=== PATIENT | female | born 1955 | race Caucasian/White ===

== ENCOUNTER 2016-05-09 08:10 | Observation (INO) ==
[2016-05-09] MEDS ORDERED: Ipratropium/Albuterol Neb 3 ML IH ONE (08:14)
[2016-05-09] MEDS ORDERED: methylPREDNISolone 125 MG/2 ML VIAL IVP ONE (08:14)
[2016-05-09 08:38] LABS: Basophils # 0.1 K/mcL (0.0-0.2); Basophils % 0.8 %; Eosinophils # 0.1 K/mcL (0.0-0.6); Eosinophils % 2.3 %; Hematocrit 43.2 % (35.3-44.9); Hemoglobin 15.2 g/dL (11.5-15.4); Lymphocytes # 1.1 K/mcL (0.6-4.6); Lymphocytes % 18.7 %; Mean Corpuscular HGB Conc 35.2 g/dL (31.6-35.5); Mean Corpuscular Hemoglobin 29.8 pg (28.0-33.3); Mean Corpuscular Volume 84.7 fL (83.0-100.0); Mean Platelet Volume 10.5 fL (9.4-12.4); Monocytes # 0.4 K/mcL (0.0-1.3); Monocytes % 7.3 %; Neutrophils # 4.2 K/mcL (1.6-8.9); Platelet Count 185 K/mcL (140-400); Red Cell Distribution Width 12.7 % (11.5-14.5); Segmented Neutrophils % 69.9 %
[2016-05-09 08:43] LABS: INR 1.1; Prothrombin Time 12.1 Seconds (9.4-12.1)
[2016-05-09 08:46] LABS: Activated Partial Thrombo Time 29.7 Seconds (26.0-36.0)
[2016-05-09 08:52] LABS: BUN/Creatinine Ratio 20 (6-26); Blood Urea Nitrogen 17 mg/dL (7-20); Calcium 9.4 mg/dL (8.6-10.8); Carbon Dioxide 20 mEq/L (19-29); Chloride 105 mEq/L (98-109); Glucose 164 mg/dL (70-99); Osmolality,Calculated 289 (280-300); Potassium 4.4 mEq/L (3.5-4.5); Sodium 137 mEq/L (136-145); eGFR For African Americans > 60 (> 60); eGFR For Non-African Americans > 60 (> 60)
--- NOTE | 2016-05-09 09:50 | Emergency Department Note ---
Disposition Clinical Impression: Dyspnea Qualifiers: Dyspnea type: shortness of breath Qualified Code(s): R06.02 - Shortness of breath Disposition: Admitted As Inpatient Condition: Fair Forms: ED Satisfaction Letter SOB HPI - General Chief Complaint: ED Shortness of Breath/Dyspnea Stated Complaint: SOB Time Seen by Provider: 05/09/16 08:11 Source: patient Mode of arrival: private vehicle Limitations: no limitations Nursing Notes Reviewed: Yes Vital Signs Reviewed: Yes - History of Present Illness Pt Subjective Complaint: shortness of breath Onset (ago): hour(s) Context: other (awakened by feeling of not being able to breathe) Severity: moderate (now a little better) Consistency/Duration: constant Improves with: oxygen Worsens with: nothing Associated symptoms: Reports: cough (occassional, since having bronchitis in March). Denies: chest pain, pain with inspiration, fever, wheezing, sputum production, orthopnea, lower extremity pain, polyuria, polydipsia, parasthesias , palpitations, hemoptysis, diaphoresis, nausea/vomiting, syncope, abdominal pain, rash, sense of impending doom Treatment prior to arrival: none Cough present: Yes Cough Description: Voluntary, Loose Cough Frequency: Intermittent Sputum production: No Sputum Amount: None - Related Data Home oxygen amount: none Previous Rx's Medication Instructions Recorded Doxycycline 100 mg PO BID #20 capsule 08/17/15 Hydrocodone/Acetaminophen [Bowen 1 tab PO Q6H PRN #12 tab 08/17/15 5-325 Tablet] Sulfamethoxazole/Trimeth DS 1 each PO BID #20 tablet 08/17/15 [Bactrim DS] Clindamycin [Cleocin] 450 mg PO QID #20 capsule 09/10/15 Azithromycin [Azithromycin 6-Tab 250 mg PO PER PKG DI #6 tab 02/21/16 Pack] Cetirizine HCl [Zyrtec] 10 mg PO DAILY #7 capsule 02/21/16 GuaiFENesin/Codeine [Robitussin 10 ml PO Q6HR #120 liquid 02/21/16 w/Codeine] Naproxen [Naprosyn] 500 mg PO BID PRN #12 tablet 02/26/16 Oxycodone HCl/Acetaminophen 1 each PO Q6HR PRN #12 tablet 02/26/16 [Percocet 5-325 mg Tablet] Albuterol Sulfate [Albuterol 4 puff IH Q4HR PRN #1 hfa.aer.ad 03/19/16 Inhaler] Azithromycin [Azithromycin 6-Tab 250 mg PO PER PKG DI #6 tab 03/19/16 Pack] PredniSONE 40 mg PO DAILY #4 tablet 03/19/16 Allergies Allergy/AdvReac Type Severity Reaction Status Date / Time nabumetone [From Relafen] AdvReac Dizziness Verified 02/26/16 18:03 All systems ED: reviewed and negative except as stated. Constitutional: Denies: fever, chills, weakness, weight change, night sweats ENT ED: Denies: throat pain, congestion, dysphagia Cardiovascular: Denies: chest pain, palpitations, orthopnea, edema, syncope Respiratory: Reports: as per HPI, cough, dyspnea. Denies: wheezes, hemoptysis, stridor, sputum production Gastrointestinal: Denies: abdominal pain, nausea, vomiting, diarrhea Neurological: Denies: weakness, numbness, paresthesias Endocrine: Denies: fatigue Hematological/Lymphatic: Denies: easy bleeding, easy bruising Past Medical History - Past Medical History Attestation: Yes The following information was validated with the patient. Source: patient Medical history: Reports: diabetes Surgical history: Reports: orthopedic, other Psychiatric history: Reports: no psych history RAW SAMPLER history: Reports: no RAW SAMPLER history - Social History Smoking Status: Current every day smoker Smokeless Tobacco Status: No Alcohol use: Reports: none Drug use: Reports: none Physical Exam - General Limitations: no limitations General appearance: alert, in no apparent distress - Head Head exam: atraumatic, normocephalic, normal inspection - Eye Eye exam: Present: normal appearance, PERRL. Absent: scleral icterus, conjunctival injection, periorbital swelling - ENT ENT exam: normal exam, normal oropharynx, mucous membranes moist - Neck Neck exam: Present: normal inspection, full ROM, trachea midline. Absent: meningismus - Expanded Neck Exam Neck exam focused ED: Absent: anterior neck swelling, carotid bruit - Chest Chest inspection: Present: normal inspection, symmetric chest wall rise. Absent : tenderness - Respiratory Respiratory exam: Present: normal lung sounds bilaterally. Absent: respiratory distress, wheezes, stridor, accessory muscle use, prolonged expiratory phase - Cardiovascular Cardiovascular exam: Present: regular rate, normal rhythm, normal heart sounds - Abdominal Exam Abdominal exam: Present: soft, Non-Tender. Absent: distention, guarding, rebound, rigidity, mass - Extremities Exam Extremities exam: Absent: tenderness, pedal edema, calf tenderness - Back Exam Back exam: Present: normal inspection. Absent: tenderness - Neurological Exam Neurological exam: Present: alert, oriented X3, CN II-XII intact - Psychiatric Psychiatric exam: Present: normal affect, normal mood - Skin Skin exam: Present: warm, dry, intact, normal color Course Course Narrative: Patient presents for evaluation of dyspnea. It woke her up. She is feeling better with 3 L of oxygen via nasal cannula. She has had an occasional cough since March when she had bronchitis. She denies chest pain, palpitations, lightheadedness, dizziness or syncope. She denies known personal history of coronary artery disease, however, her father had significant CAD with an [place] in his 40s. Patient denies any personal or family history of DVT or PE. She has had no recent surgeries or procedures, no recent prolonged sedentary periods or long trips and no recent air travel. She smokes 4-5 cigarettes per day and has done so for the past four years. She states that she is trying to quit. Her significant other smokes more than this and has a history of COPD. The patient' s chest x-ray is normal, labs are essentially normal except for an elevated glucose. She is a diabetic, obese smoker with dyspnea and a setting of normal, breath sounds normal X-ray, negative d-dimer, no risk factors for PE, and no signs or symptoms consistent with an infectious process. The concern is for anginal equivalent. Case has been discussed with Dr. Aguirre. He has had face- to-face time with the patient and agrees with the assessment and plan. He recommends admission for further evaluation. The hospitalist has been paged. - Reevaluation(s) Reevaluation #1: Room air sat 92-93%. Feels worse without O2. Time: 10:45 Shortness of Breath/Dyspnea - Medical Records Medical records reviewed: Yes I reviewed the patient's medical records. - Lab Data Lab results reviewed: Yes I reviewed the patient's lab results. Lab results narrative: Laboratory Last Values WBC 6.0 K/mcL (4.3-11.1) 05/09/16 08:32 RBC 5.10 M/mcL (3.82-4.97) H 05/09/16 08:32 Hgb 15.2 g/dL (11.5-15.4) 05/09/16 08:32 Hct 43.2 % (35.3-44.9) 05/09/16 08:32 MCV 84.7 fL (83.0-100.0) 05/09/16 08:32 MCH 29.8 pg (28.0-33.3) 05/09/16 08:32 MCHC 35.2 g/dL (31.6-35.5) 05/09/16 08:32 RDW 12.7 % (11.5-14.5) 05/09/16 08:32 Plt Count 185 K/mcL (140-400) 05/09/16 08:32 MPV 10.5 fL (9.4-12.4) 05/09/16 08:32 Immature Gran % 1.0 % (0-4) 05/09/16 08:32 Seg Neutrophils % 69.9 % 05/09/16 08:32 Lymphocytes % 18.7 % 05/09/16 08:32 Monocytes % 7.3 % 05/09/16 08:32 Eosinophils % 2.3 % 05/09/16 08:32 Basophils % 0.8 % 05/09/16 08:32 Neutrophils # 4.2 K/mcL (1.6-8.9) 05/09/16 08:32 Lymphocytes # 1.1 K/mcL (0.6-4.6) 05/09/16 08:32 Monocytes # 0.4 K/mcL (0.0-1.3) 05/09/16 08:32 Eosinophils # 0.1 K/mcL (0.0-0.6) 05/09/16 08:32 Basophils # 0.1 K/mcL (0.0-0.2) 05/09/16 08:32 PT 12.1 Seconds (9.4-12.1) 05/09/16 08:32 INR 1.1 05/09/16 08:32 APTT 29.7 Seconds (26.0-36.0) 05/09/16 08:32 D-Dimer 273 ng/mLFEU (0-500) 05/09/16 08:32 Sodium 137 mEq/L (136-145) 05/09/16 08:32 Potassium 4.4 mEq/L (3.5-4.5) 05/09/16 08:32 Chloride 105 mEq/L (98-109) 05/09/16 08:32 Carbon Dioxide 20 mEq/L (19-29) 05/09/16 08:32 BUN 17 mg/dL (7-20) 05/09/16 08:32 Creatinine 0.83 mg/dL (0.57-1.11) 05/09/16 08:32 Est GFR ( Amer) > 60 (> 60) 05/09/16 08:32 Est GFR (Non-Af Amer) > 60 (> 60) 05/09/16 08:32 BUN/Creatinine Ratio 20 (6-26) 05/09/16 08:32 Glucose 164 mg/dL (70-99) H 05/09/16 08:32 Calculated Osmolality 289 (280-300) 05/09/16 08:32 Calcium 9.4 mg/dL (8.6-10.8) 05/09/16 08:32 Troponin I 0.01 ng/mL (0-0.03) 05/09/16 08:32 B-Natriuretic Peptide 20 pg/mL (0-100) 05/09/16 08:32 - Radiology Data Radiology results reviewed: Yes I reviewed the patient's radiology results. Chest X-Ray 05/09/16 08:14 IMPRESSION: Stable chest with no acute cardiopulmonary process. D/ / Dimitris Patton MD / Dimitris Patton MD Interpreting Provider: Dimitris Patton MD - EKG Data EKG attestation: Yes I reviewed and interpreted this EKG. EKG shows normal: Reports: sinus rhythm Rate: Reports: normal Rhythm: Reports: arrhythmia [place]/QRS: Reports: normal When compared to previous EKG there are: no significant changes Interpretation: Reports: no acute changes, unchanged when compared to prior tracing (date)
--- NOTE | 2016-05-09 10:31 | Emergency Department Note ---
START Narrative - START START: I examined this patient and my medical decision-making was reviewed with the PARTS SALES MANAGER/PA/Advanced Practice Nurse/Resident Physician. I agree with the documented findings, disposition and treatment plan as described except to the extent set forth below. ED attending note: Patient seen with physician graduate research assistant Charla Haney. Please see a copy of his note for details of the H&P, evaluation, management and disposition of this patient. We independently had gaty-ic-[id number] contact with the patient Briefly: 60-year-old female smoker comes in with dyspnea. Chest x-rays negative troponins negative chemistry and CBC are negative. EKG shows no acute ischemic changes. She will get a d-dimer. Admission anticipated. Provided 35 minutes of critical care services for this patient. Patient stable
[2016-05-09] MEDS ORDERED: Aspirin 81 MG TAB.CHEW PO ONE (10:49)
[2016-05-09] MEDS ORDERED: Naloxone 0.4 MG/ML INJ IVP PRN (12:52)
[2016-05-09] MEDS ORDERED: Albuterol 2.5 MG/3 ML NEBULIZER IH PRN (12:55)
--- NOTE | 2016-05-09 16:04 | Internal Med History&Physical ---
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 CXR shows no pneumonia and no other acute pathology. no worsening dyspnea on exertion,no leg swelling and negative BNP and no h/o orthopnea and denies any similar prior history. will observe today with 2 l NC, will need 6 MWT for need of dc prior lenny dc. no wheezing on exam, will keep on prn alb nebs. will give referral to pulmonary as OP. Qualifiers: Dyspnea type: shortness of breath Qualified Code(s): R06.02 - Shortness of breath (3) Tobacco abuse Current visit: Yes Status: Acute counselled for quitting. will add nicotine patch. Internal Medicine - H&P: HPI Chief complaint: sob Admitted From: Home Plans for Post Hospital Care: Home History of present illness: Ms. Cuadra is a 60 year old female presents for evaluation of dyspnea. It woke her up. she was placed on 3 L of oxygen via nasal cannula. She has had an occasional cough since March when she had bronchitis and reports that she was treated with antibiotics and steroids. She denies chest pain, palpitations, lightheadedness, dizziness or syncope. She denies known personal history of coronary artery disease, however, her father had significant CAD with an [place] in his 40s. Patient denies any personal or family history of DVT or PE. She has had no recent surgeries or procedures, no recent prolonged sedentary periods or long trips and no recent air travel. She smokes 4-5 cigarettes per day and has done so for the past four years. She states that she is trying to quit. Her significant other smokes more than this and has a history of COPD. The patient' s chest x-ray is normal, labs are essentially normal except for an elevated glucose. She is a diabetic, obese smoker with dyspnea and a setting of normal, breath sounds normal X-ray, negative d-dimer, no risk factors for PE, and no signs or symptoms consistent with an infectious process. she was admitted for observation as she was desating to low 90s when off oxygen. Past Med Surg Social Fam HX - Past Medical History Medical history: diabetes Psychiatric history: no psych history - Past Surgical History Surgical History: orthopedic, other - Social History Smoking Status: Current every day smoker Smokeless Tobacco Status: No Alcohol use: none Drug use: none - Family History Father Hx Family Cardiac Disorders: Yes (HTN) Internal Medicine - H&P: Meds Insulin Glargine,Hum.rec.anlog [Lantus Solostar] 20 unit SQ QAM 05/09/16 [ History] Meloxicam 7.5 mg PO DAILY 05/09/16 [History] Metformin [Glucophage] 1,000 mg PO BID 05/09/16 [History] Allergies nabumetone [From Relafen] Adverse Reaction (Verified 02/26/16 18:03) Dizziness All Systems PM: A 10-system review of systems was performed and is negative for pertinent findings except as documented above in the HPI. - Constitutional Constitutional: as per HPI - EENT Eyes: no change in vision, no discharge, no pain, no photophobia Ears: no ear discharge, no ear pain, no tinnitus Nose, mouth and throat: no dysphagia, no nasal discharge, no neck pain, no sore throat - Cardiovascular Cardiovascular ROS IM: dyspnea, no chest pain, no diaphoresis, no lightheadedness, no palpitations, no syncope - Respiratory Respiratory: cough, dyspnea - Gastrointestinal Gastrointestinal: no abdominal pain, no diarrhea, no hematemesis, no hematochezia, no melena, no nausea, no vomiting - Genitourinary Genitourinary: no change in urinary stream, no dysuria, no flank pain, no hematuria - Constitutional Vitals: Temp Pulse Resp BP Pulse Ox 97.9 F 88 17 150/85 94 L 05/09/16 13:09 05/09/16 13:09 05/09/16 13:09 05/09/16 13:05/09/16 13:09 General appearance: Present: A&O X 3, no acute distress Exam: Neck supple. Chest bilateral clear, no added sounds. CVS S1-S2, no murmurs rubs or gallops. Abdomen soft, obese, nontender, bowel sounds are present. Extremities no edema. Neuro alert and awake, no focal neurological deficits. Internal Med - H&P Results - Labs CBC & Chem 7: 05/09/16 08:32 05/09/16 08:32
[2016-05-09] MEDS: *HR* Heparin 5,000 UNIT/ML VIAL SQ SCH (17:24)
[2016-05-09] MEDS ORDERED: *HR* OxyCODONE Immed Rel 5 MG TABLET PO PRN (19:51)
[2016-05-09] MEDS ORDERED: Acetaminophen 325 MG TABLET PO PRN (19:51)
[2016-05-09] MEDS ORDERED: Ondansetron 4 MG/2 ML VIAL IVP PRN (19:51)
[2016-05-09] MEDS ORDERED: 0.9 % Sodium Chloride 1,000 ML IVC SCH (20:00)
[2016-05-09] MEDS: Famotidine 20 MG TABLET PO SCH (20:07)
[2016-05-09] MEDS ORDERED: *HR* Dextrose 50 % in Water (Syg) 50 ML SYRINGE IVP PRN (21:19)
[2016-05-09] MEDS ORDERED: D5% in Water 1,000 ML IV PRN (21:19)
[2016-05-09] MEDS ORDERED: Dextrose Gel 15 GM PO PRN ×2 (21:19)
[2016-05-09] MEDS ORDERED: Insulin LISPRO 300 UNITS/3 ML VIAL SQ SCH (21:30)
[2016-05-10 04:28] LABS: Basophils % 0.2 %; Hematocrit 40.8 % (35.3-44.9); Hemoglobin 14.5 g/dL (11.5-15.4); Immature Granulocytes % 1.8 % (0-4); Lymphocytes % 10.4 %; Mean Corpuscular HGB Conc 35.5 g/dL (31.6-35.5); Mean Corpuscular Hemoglobin 29.8 pg (28.0-33.3); Mean Platelet Volume 11.2 fL (9.4-12.4); Monocytes # 0.4 K/mcL (0.0-1.3); Neutrophils # 8.2 K/mcL (1.6-8.9); Platelet Count 201 K/mcL (140-400); Red Blood Count 4.86 M/mcL (3.82-4.97); Red Cell Distribution Width 12.5 % (11.5-14.5); Segmented Neutrophils % 83.6 %
[2016-05-10 04:48] LABS: BUN/Creatinine Ratio 22 (6-26); Blood Urea Nitrogen 20 mg/dL (7-20); Calcium 9.1 mg/dL (8.6-10.8); Carbon Dioxide 17 mEq/L (19-29); Chloride 104 mEq/L (98-109); Cholesterol 215 mg/dL (< 200); Glucose 275 mg/dL (70-99); HDL Cholesterol 27 mg/dL (40-59); LDL Cholesterol,Calculated 123 mg/dL (0-99); Osmolality,Calculated 292 (280-300); Potassium 4.2 mEq/L (3.5-4.5); Sodium 135 mEq/L (136-145); Triglycerides 324 mg/dL (< 150); eGFR For African Americans > 60 (> 60); eGFR For Non-African Americans > 60 (> 60)
[2016-05-10] MEDS: *HR* Heparin 5,000 UNIT/ML VIAL SQ SCH (06:23)
[2016-05-10] MEDS ORDERED: Insulin LISPRO 300 UNITS/3 ML VIAL SQ SCH (07:30)
[2016-05-10 07:34] VITALS: BP 120/71
[2016-05-10] MEDS: Famotidine 20 MG TABLET PO SCH (08:08)
[2016-05-10] MEDS ORDERED: Insulin DETEMIR 100 UNIT/ML X5UNITS SQ SCH (09:00)
--- NOTE | 2016-05-10 09:49 | Discharge Summary ---
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: with terminal press operator use Qualified Code(s): E11.9 - Type 2 diabetes mellitus without complications ; Z79.4 - MCFP (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 (2) Dyspnea Priority: Primary Status: Acute Qualifiers: Dyspnea type: shortness of breath Qualified Code(s): R06.02 - Shortness of breath (3) Tobacco abuse Priority: Secondary Status: Acute - Discharge Medications Prescriptions: Atorvastatin [Lipitor] 10 mg PO HS #30 tablet Home Medications: Insulin Glargine,Hum.rec.anlog [Lantus Solostar] 20 unit SQ QAM 05/09/16 [ History] Meloxicam 7.5 mg PO DAILY 05/09/16 [History] Metformin [Glucophage] 1,000 mg PO BID 05/09/16 [History] Atorvastatin [Lipitor] 10 mg PO HS #30 tablet 05/10/16 [Rx] Allergies/Adverse Reactions: Allergies nabumetone [From Relafen] Adverse Reaction (Verified 02/26/16 18:03) Dizziness Date of admission: 05/09/16 11:46 Primary care physician: Ramone Cee Discharging clinician: Brendan Ruiz Anticipated date of discharge: 05/10/16 - Patient Status Disposition: Home, Self-Care Condition: Fair Functional capacity at discharge: independent ambulation Overall status at discharge: patient is back to baseline - Discharge Instructions Instructions: Atorvastatin (By mouth) Follow Up With: Ramone Cee DO [Primary Care Provider] - Forms: ED Satisfaction Letter - Diet and Activity Activity: resume usual activities as tolerated Diet: advance to your usual diet Interval History: Ms. Cuadra is a 60 year old female presents for evaluation of dyspnea. It woke her up. she was placed on 3 L of oxygen via nasal cannula. She has had an occasional cough since March when she had bronchitis and reports that she was treated with antibiotics and steroids. She denies chest pain, palpitations, lightheadedness, dizziness or syncope. She denies known personal history of coronary artery disease, however, her father had significant CAD with an [place] in his 40s. Patient denies any personal or family history of DVT or PE. She has had no recent surgeries or procedures, no recent prolonged sedentary periods or long trips and no recent air travel. She smokes 4-5 cigarettes per day and has done so for the past four years. She states that she is trying to quit. Her significant other smokes more than this and has a history of COPD. The patient' s chest x-ray is normal, labs are essentially normal except for an elevated glucose. She is a diabetic, obese smoker with dyspnea and a setting of normal, breath sounds normal X-ray, negative d-dimer, no risk factors for PE, and no signs or symptoms consistent with an infectious process. she was admitted for observation as she was desating to low 90s when off oxygen. Hospital course: she remained stable overnight, no further de saturation. CXR showed no infiltrates, routine blood work is unremarkable including cbc, chem. she remained stable on RA With no supplemental O2 and her sats were mainatined > 95%. seh said that she is not able to walk due to her leg, hence 6MWT was not done. she was advised to quit smoking as she said she started 5 yrs ago. she does not need supplemental o2 at this time and she is being dc home in stable condition. will add low dose statin for high cholesterol level. no change in her home meds will follow with PCP as OP. Time spent discussing smoking cessation with patient: more than 10 minutes - Time Spent with Patient Total time spent providing and/or coordinating discharge services: Greater than 30 minutes - Constitutional Vitals: Temp Pulse Resp BP Pulse Ox 97.3 F L 68 17 120/71 96 05/10/16 07:33 05/10/16 07:33 05/10/16 07:33 05/10/16 07:33 05/10/16 07:33 General appearance: Present: A&O X 3, no acute distress Exam: Neck supple. Chest bilateral clear, no added sounds. CVS S1-S2, no murmurs rubs or gallops. Abdomen soft, obese, nontender, bowel sounds are present. Extremities no edema. Neuro alert and awake, no focal neurological deficits.
--- NOTE | 2016-05-10 19:54 | Electrocardiograph Report ---
[facility] Test Date: 2016-05-09 Pat Name: [place] Cuadra Department: 105 Room: 3B36 Gender: F Camera Maker: : [id number] Requested By: Charla Haney Order Number: [id number] Reading MD: Alton Schneider DO Measurements Intervals [place] Rate: 80 P: 56 AL: 159 QRS: 23 QRSD: 101 T: 37 QT: 394 QTc: 429 Interpretive Statements SINUS RHYTHM WITH SINUS ARRHYTHMIA Electronically Signed On 05-10-16 19:52:47 EST by Alton Schneider DO
== END 2016-05-10 10:53 | disposition home or self-care (01) ==
LOC: 3BNU 08:10 → EMEROO 08:10 → SUATTDRO 11:46 → 3BNU 12:59
PROVIDERS: ADMIT Nurse Practitioner Family; ATTEND Internal Medicine Endocrinology, Diabetes & Metabolism

== ENCOUNTER 2017-01-26 11:39 | Observation (INO) ==
[2017-01-26] MEDS ORDERED: Ipratropium/Albuterol Neb 3 ML IH ONE ×2 (11:58→13:40)
--- NOTE | 2017-01-26 12:01 | Emergency Department Note ---
Disposition Clinical Impression: COPD exacerbation Disposition: Admitted As Inpatient Condition: Fair Referrals: Ramone Cee DO [Primary Care Provider] - Forms: ED Satisfaction Letter Time of Disposition: 14:42 SOB HPI - General Chief Complaint: ED Shortness of Breath/Dyspnea Stated Complaint: JOSE RAFAEL, Poss pneumonia Time Seen by Provider: 01/26/17 11:52 Source: patient, EMS Limitations: no limitations Nursing Notes Reviewed: Yes Vital Signs Reviewed: Yes - History of Present Illness Pt Subjective Complaint: shortness of breath, cough Onset (ago): day(s) Context: recent illness Severity: severe Consistency/Duration: intermittent Improves with: bronchodilators Worsens with: exertion, coughing Associated symptoms: Reports: chest pain, fever, cough, sputum production Treatment prior to arrival: bronchodilator Cough Description: Productive Cough Frequency: Intermittent Sputum production: Yes Sputum Color: Green - Related Data Home oxygen amount: none Home Medications Medication Instructions Recorded Confirmed Insulin Glargine,Hum.rec.anlog 20 unit SQ QAM 05/09/16 01/26/17 [Lantus Solostar] metFORMIN [Glucophage] 500 mg PO BID 05/09/16 01/26/17 Previous Rx's Medication Instructions Recorded Atorvastatin [Lipitor] 10 mg PO HS #30 tablet 05/10/16 Allergies Allergy/AdvReac Type Severity Reaction Status Date / Time nabumetone [From Relafen] AdvReac Dizziness Verified 01/26/17 11:45 All systems ED: reviewed and negative except as stated. Constitutional: Reports: fever Eyes: Reports: as per HPI ENT ED: Reports: as per HPI Cardiovascular: Reports: chest pain Respiratory: Reports: cough, dyspnea, sputum production Gastrointestinal: Reports: as per HPI Genitourinary: Reports: as per HPI Musculoskeletal: Reports: as per HPI Integumentary: Reports: as per HPI Neurological: Reports: as per HPI Psychiatric: Reports: as per HPI Endocrine: Reports: as per HPI Hematological/Lymphatic: Reports: as per HPI Allergic/Immunologic: Reports: as per HPI Past Medical History - Past Medical History Source: patient Medical history: Reports: diabetes Surgical history: Reports: orthopedic, other Psychiatric history: Reports: no psych history SOLIDWORKS DRAFTER history: Reports: no SOLIDWORKS DRAFTER history - Social History Smoking Status: Current every day smoker Smokeless Tobacco Status: No Alcohol use: Reports: none Drug use: Reports: none Physical Exam - General Limitations: no limitations General appearance: alert, in no apparent distress - Head Head exam: atraumatic - Eye Eye exam: Present: normal appearance - ENT ENT exam: normal exam - Neck Neck exam: Present: normal inspection, full ROM - Chest Chest inspection: Present: normal inspection, symmetric chest wall rise - Respiratory Respiratory exam: Present: normal lung sounds bilaterally, other (Tachypnea) - Cardiovascular Cardiovascular exam: Present: regular rate, normal rhythm, normal heart sounds - Rectal Exam Rectal exam: Present: deferred - Extremities Exam Extremities exam: Present: normal inspection - Neurological Exam Neurological exam: Present: alert, oriented X3, CN II-XII intact - Psychiatric Psychiatric exam: Present: normal affect, normal mood - Skin Skin exam: Present: warm, dry, intact Course Course Narrative: Patient presents with cough productive of green phlegm, fevers, dyspnea. Recent ill exposure as her significant other has pneumonia. She is an active smoker. EKG without acute changes. - Reevaluation(s) Reevaluation #1: Symptoms persist despite neb therapy. Patient requests admission. smoking cessation counseling provided Vital Signs Temperature 99.4 F 01/26/17 11:42 Pulse Rate 94 01/26/17 11:42 Respiratory Rate 22 01/26/17 11:42 Blood Pressure 123/79 01/26/17 11:42 O2 Sat by Pulse Oximetry 94 01/26/17 11:42 Temperature 99.4 F 01/26/17 11:42 Pulse Rate 100 01/26/17 13:32 Respiratory Rate 22 01/26/17 14:36 Blood Pressure 134/66 01/26/17 14:36 O2 Sat by Pulse Oximetry 95 01/26/17 13:55 Oxygen Delivery Oxygen Delivery Nasal Cannula Shortness of Breath/Dyspnea - Lab Data Lab results reviewed: Yes I reviewed the patient's lab results. Result diagrams: 01/26/17 13:56 01/26/17 13:56 Lab Results 01/26/17 01/26/17 01/26/17 Range/Units 13:56 13:56 13:56 WBC 8.1 (4.3-11.1) K/mcL RBC 4.97 (3.82-4.97) M/mcL Hgb 14.7 (11.5-15.4) g/dL Hct 42.9 (35.3-44.9) % MCV 86.3 (83.0-100.0) fL MCH 29.6 (28.0-33.3) pg MCHC 34.3 (31.6-35.5) g/dL RDW 13.2 (11.5-14.5) % Plt Count 194 (140-400) K/mcL MPV 10.8 (9.4-12.4) fL Immature Gran % 1.1 (0-4) % Seg Neutrophils % 78.4 % Lymphocytes % 12.0 % Monocytes % 7.4 % Eosinophils % 0.6 % Basophils % 0.5 % Neutrophils # 6.3 (1.6-8.9) K/mcL Lymphocytes # 1.0 (0.6-4.6) K/mcL Monocytes # 0.6 (0.0-1.3) K/mcL Eosinophils # 0.1 (0.0-0.6) K/mcL Basophils # 0.0 (0.0-0.2) K/mcL Sodium 136 (136-145) mEq/L Potassium 3.9 (3.5-4.5) mEq/L Chloride 99 (98-109) mEq/L Carbon Dioxide 28 (19-29) mEq/L BUN 12 (7-20) mg/dL Creatinine 0.83 (0.57-1.11) mg/dL Est GFR ( Amer) > 60 (> 60) Est GFR (Non-Af Amer) > 60 (> 60) BUN/Creatinine Ratio 14 (6-26) Glucose 146 H (70-99) mg/dL Calculated Osmolality 284 (280-300) Calcium 9.3 (8.6-10.8) mg/dL Total Bilirubin 0.5 (0.2-1.2) mg/dL AST 16 (5-34) Units/L ALT 13 (0-55) Units/L Alkaline Phosphatase 100 (38-126) Units/L Troponin I 0.00 (0-0.03) ng/mL B-Natriuretic Peptide (0-100) pg/mL Serum Total Protein 8.2 (6.0-8.3) g/dL Albumin 3.5 (3.5-5.0) g/dL Globulin 4.7 H (2.4-3.5) g/dL Albumin/Globulin Ratio 0.7 L (1.1-2.2) 01/26/17 Range/Units 13:56 WBC (4.3-11.1) K/mcL RBC (3.82-4.97) M/mcL Hgb (11.5-15.4) g/dL Hct (35.3-44.9) % MCV (83.0-100.0) fL MCH (28.0-33.3) pg MCHC (31.6-35.5) g/dL RDW (11.5-14.5) % Plt Count (140-400) K/mcL MPV (9.4-12.4) fL Immature Gran % (0-4) % Seg Neutrophils % % Lymphocytes % % Monocytes % % Eosinophils % % Basophils % % Neutrophils # (1.6-8.9) K/mcL Lymphocytes # (0.6-4.6) K/mcL Monocytes # (0.0-1.3) K/mcL Eosinophils # (0.0-0.6) K/mcL Basophils # (0.0-0.2) K/mcL Sodium (136-145) mEq/L Potassium (3.5-4.5) mEq/L Chloride (98-109) mEq/L Carbon Dioxide (19-29) mEq/L BUN (7-20) mg/dL Creatinine (0.57-1.11) mg/dL Est GFR ( Amer) (> 60) Est GFR (Non-Af Amer) (> 60) BUN/Creatinine Ratio (6-26) Glucose (70-99) mg/dL Calculated Osmolality (280-300) Calcium (8.6-10.8) mg/dL Total Bilirubin (0.2-1.2) mg/dL AST (5-34) Units/L ALT (0-55) Units/L Alkaline Phosphatase (38-126) Units/L Troponin I (0-0.03) ng/mL B-Natriuretic Peptide 91 (0-100) pg/mL Serum Total Protein (6.0-8.3) g/dL Albumin (3.5-5.0) g/dL Globulin (2.4-3.5) g/dL Albumin/Globulin Ratio (1.1-2.2) - Radiology Data Radiology results reviewed: Yes I reviewed the patient's radiology results. - EKG Data EKG attestation: Yes I reviewed and interpreted this EKG. EKG results narrative: Normal sinus rhythm rate 91 NM 143 QRS 99 QT/QTC 348/396
[2017-01-26] MEDS ORDERED: Ipratropium/Albuterol Neb 3 ML ONE (12:25)
[2017-01-26] MEDS: Ipratropium/Albuterol Neb 3 ML IH ONE ×2 (12:56→13:30)
[2017-01-26] MEDS ORDERED: methylPREDNISolone 125 MG/2 ML VIAL IVP ONE (13:39)
[2017-01-26 14:07] LABS: Basophils % 0.5 %; Eosinophils # 0.1 K/mcL (0.0-0.6); Eosinophils % 0.6 %; Hematocrit 42.9 % (35.3-44.9); Hemoglobin 14.7 g/dL (11.5-15.4); Immature Granulocytes % 1.1 % (0-4); Mean Corpuscular HGB Conc 34.3 g/dL (31.6-35.5); Mean Corpuscular Hemoglobin 29.6 pg (28.0-33.3); Mean Corpuscular Volume 86.3 fL (83.0-100.0); Mean Platelet Volume 10.8 fL (9.4-12.4); Monocytes # 0.6 K/mcL (0.0-1.3); Monocytes % 7.4 %; Neutrophils # 6.3 K/mcL (1.6-8.9); Platelet Count 194 K/mcL (140-400); Red Blood Count 4.97 M/mcL (3.82-4.97); Red Cell Distribution Width 13.2 % (11.5-14.5); Segmented Neutrophils % 78.4 %
[2017-01-26 14:22] LABS: Alanine Aminotransferase 13 Units/L (0-55); Albumin 3.5 g/dL (3.5-5.0); Albumin/Globulin Ratio 0.7 (1.1-2.2); Alkaline Phosphatase 100 Units/L (38-126); Aspartate Amino Transferase 16 Units/L (5-34); BUN/Creatinine Ratio 14 (6-26); Bilirubin,Total 0.5 mg/dL (0.2-1.2); Blood Urea Nitrogen 12 mg/dL (7-20); Calcium 9.3 mg/dL (8.6-10.8); Carbon Dioxide 28 mEq/L (19-29); Chloride 99 mEq/L (98-109); Globulin 4.7 g/dL (2.4-3.5); Glucose 146 mg/dL (70-99); Osmolality,Calculated 284 (280-300); Potassium 3.9 mEq/L (3.5-4.5); Sodium 136 mEq/L (136-145); Total Protein 8.2 g/dL (6.0-8.3); eGFR For African Americans > 60 (> 60); eGFR For Non-African Americans > 60 (> 60)
[2017-01-26] MEDS ORDERED: Levofloxacin 500 MG/100 ML 500 MG/100 ML BAG IVPB ONE (14:41)
[2017-01-26] MEDS ORDERED: Naloxone 0.4 MG/ML INJ IVP PRN (15:50)
[2017-01-26] MEDS ORDERED: Ondansetron 4 MG/2 ML VIAL IVP PRN (15:50)
[2017-01-26] MEDS ORDERED: Dextrose Gel 15 GM PO PRN ×2 (15:51)
[2017-01-26] MEDS ORDERED: D5% in Water 1,000 ML IVC PRN (15:51)
[2017-01-26] MEDS ORDERED: *HR* Dextrose 50 % in Water (Syg) 50 ML SYRINGE IVP PRN (15:51)
--- NOTE | 2017-01-26 15:58 | Internal Med History&Physical ---
Date of Encounter: 01/26/17 Time of Encounter: 15:54 Assessment and Plan (1) Dyspnea Current visit: No Status: Acute Pt does not have diagnosed COPD however given tobacco abuse history, concern for underlying COPD acute respiratory distress secondary to COPD exac/acute bronchitis will continue systemic steroids and bronchodilator support IV abx O2 supplementation, maintain O2 sat>92% Guaifenesin/Dextromorphan prn cough will closely monitor respiratory status Will benefit from outpatient PFTs after discharge Qualifiers: Dyspnea type: shortness of breath Qualified Code(s): R06.02 - Shortness of breath (2) COPD exacerbation Current visit: Yes Status: Acute as listed above Pt will benefit from outpatient pulmonary function tests. (3) Acute bronchitis Current visit: Yes Status: Acute as listed above Qualifiers: Bronchitis organism: unspecified organism Qualified Code(s): J20.9 - Acute bronchitis, unspecified (4) Diabetes Current visit: No Status: Chronic Hold oral antihyperglycemic agents at this time continue home dose of basal insulin started sliding scale insulin algorithm monitor FS and BG ADA diet Qualifiers: Diabetes mellitus type: type 2 Diabetes mellitus complication status: without complication Diabetes mellitus termite technician insulin use: with nursing home use Qualified Code(s): E11.9 - Type 2 diabetes mellitus without complications ; Z79.4 - intermediate designer (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 (5) Tobacco abuse Current visit: No Status: Chronic smoking cessation counseling provided pt trying to quit refused nicotine supplementation (6) DVT prophylaxis Current visit: Yes Status: Acute Heparin SQ (7) Hyperlipemia Current visit: Yes Status: Chronic continue home dose of lipitor Qualifiers: Hyperlipidemia type: unspecified Qualified Code(s): E78.5 - Hyperlipidemia , unspecified (8) Obesity (BMI 30-39.9) Current visit: Yes Status: Chronic Internal Medicine - H&P: HPI Chief complaint: shortness of breath Admitted From: Home Plans for Post Hospital Care: Home History of present illness: Ms. Cuadra is a 61 year old female with PMH Of hyperlipidemia, DM, obesity who presents to the ER for evaluation for shortness of breath. Pt reports of having a productive cough for over a week and her is hospitalized for pneumonia. She is an everyday smoker (1/2ppd x 10 years). She states she went to work earlier this morning but could not breathe which prompted his admission to the ER. She received bronchodilator support and IV steroids in the ER. She was placed on O2 support, to which she responded appropriately. She reports of feeling better since her arrival to the ER. She does not have a diagnosed history of COPD and is not on home oxygen therapy. At this time she reports of productive cough with yellow sputum but denies any chest pain, abd pain, n/v, fever, or chills. Past Med Surg Social Fam HX - Past Medical History Medical history: diabetes Psychiatric history: no psych history - Past Surgical History Surgical History: , orthopedic, other - Social History Smoking Status: Current every day smoker Packs per day: less than 1/2 pack Smokeless Tobacco Status: No Alcohol use: none Drug use: none - Family History Father Age: 85 Living Status: Hx Family Cardiac Disorders: (hypertension) Daughter Hx Family Cardiac Disorders: Yes (hypertension) Internal Medicine - H&P: Meds Insulin Glargine,Hum.rec.anlog [Lantus Solostar] 20 unit SQ QAM 05/09/16 [ History] metFORMIN [Glucophage] 500 mg PO BID 05/09/16 [History] Atorvastatin [Lipitor] 10 mg PO HS #30 tablet 05/10/16 [Rx] 3 Allergy/AdvReac Type Severity Reaction Status Date / Time nabumetone [From Relafen] AdvReac Dizziness Verified 01/26/17 11:45 All Systems PM: A 10-system review of systems was performed and is negative for pertinent findings except as documented above in the HPI. - Constitutional Constitutional: as per HPI - Constitutional Vitals: Temp Pulse Resp BP Pulse Ox 98.6 F 100 20 136/83 94 01/26/17 15:12 01/26/17 15:12 01/26/17 15:12 01/26/17 15:12 01/26/17 15:12 General appearance: Present: cooperative, A&O X 3, pleasant, no acute distress, obese, answers questions appropriately - Head Head exam: Present: atraumatic, normocephalic - Respiratory Respiratory exam: Absent: respiratory distress, wheezes (decreased breath sounds but equal air entry bilaterally) - Cardiovascular Cardiovascular exam: Present: RRR, +S1, +S2. Absent: diastolic murmur, gallop, rubs, systolic murmur - GI/Abdominal GI/Abdominal exam: Present: normal bowel sounds, soft, no peritoneal signs. Absent: distended, tenderness - Extremities Exam Extremities exam: Present: warm, radial pulses palpable and symmetrical. Absent : calf tenderness - Neurological Exam Neurological exam: Present: alert, oriented X3 - Psychiatric Psychiatric exam: Present: normal affect, normal mood Internal Med - H&P Results - Labs CBC & Chem 7: 01/26/17 13:56 01/26/17 13:56
[2017-01-26] MEDS: Insulin LISPRO 300 UNITS/3 ML VIAL SQ SCH (17:23)
[2017-01-26] MEDS: Ipratropium/Albuterol Neb 3 ML IH SCH ×3 (20:43→23:48)
[2017-01-26] MEDS: *HR* Heparin 5,000 UNIT/ML VIAL SQ SCH (20:52)
[2017-01-26] MEDS ORDERED: Insulin LISPRO 300 UNITS/3 ML VIAL SQ SCH (21:00)
[2017-01-27] MEDS: Ipratropium/Albuterol Neb 3 ML IH SCH ×6 (04:27→23:43)
[2017-01-27] MEDS: *HR* Heparin 5,000 UNIT/ML VIAL SQ SCH ×3 (05:41→21:06)
[2017-01-27 07:29] LABS: Basophils % 0.2 %; Hematocrit 39.3 % (35.3-44.9); Hemoglobin 13.5 g/dL (11.5-15.4); Lymphocytes # 0.4 K/mcL (0.6-4.6); Lymphocytes % 7.9 %; Mean Corpuscular HGB Conc 34.4 g/dL (31.6-35.5); Mean Corpuscular Hemoglobin 29.3 pg (28.0-33.3); Mean Corpuscular Volume 85.2 fL (83.0-100.0); Mean Platelet Volume 11.3 fL (9.4-12.4); Monocytes # 0.3 K/mcL (0.0-1.3); Monocytes % 5.6 %; Neutrophils # 4.4 K/mcL (1.6-8.9); Platelet Count 187 K/mcL (140-400); Red Blood Count 4.61 M/mcL (3.82-4.97); Red Cell Distribution Width 12.8 % (11.5-14.5); Segmented Neutrophils % 85.3 %
[2017-01-27 07:48] LABS: BUN/Creatinine Ratio 22 (6-26); Blood Urea Nitrogen 19 mg/dL (7-20); Calcium 8.9 mg/dL (8.6-10.8); Carbon Dioxide 24 mEq/L (19-29); Chloride 100 mEq/L (98-109); Glucose 337 mg/dL (70-99); Magnesium 1.7 mg/dL (1.6-2.6); Osmolality,Calculated 290 (280-300); Potassium 4.3 mEq/L (3.5-4.5); Sodium 132 mEq/L (136-145); eGFR For African Americans > 60 (> 60); eGFR For Non-African Americans > 60 (> 60)
[2017-01-27] MEDS: Insulin LISPRO 300 UNITS/3 ML VIAL SQ SCH ×4 (08:12→21:47)
[2017-01-27] MEDS ORDERED: predniSONE 20 MG TABLET PO SCH (09:00)
[2017-01-27] MEDS: Insulin DETEMIR 100 UNIT/ML X5UNITS SQ SCH (09:05)
[2017-01-27] MEDS ORDERED: levoFLOXacin 500 MG TABLET PO SCH (14:00)
--- NOTE | 2017-01-27 15:30 | Internal Med Progress Note ---
Date of Encounter: 01/27/17 Time of Encounter: 15:57 - Assessment and plan (1) Dyspnea Current Visit: No Status: Acute Assessment and plan: Reports of persistent cough and continues to be O2 dependent Pt does not have diagnosed COPD however given tobacco abuse history, concern for underlying COPD acute respiratory distress secondary to COPD exac/acute bronchitis will continue systemic steroids (D/C prednison, start Solumedrol 40mg IV q8h) and bronchodilator support IV abx (Levaquin 750mg IV qd) O2 supplementation, maintain O2 sat>92% Guaifenesin/Dextromorphan prn cough will closely monitor respiratory status Will benefit from outpatient PFTs after discharge Qualifiers: Dyspnea type: shortness of breath Qualified Code(s): R06.02 - Shortness of breath (2) COPD exacerbation Current Visit: Yes Status: Acute Assessment and plan: as listed above Pt will benefit from outpatient pulmonary function tests. (3) Acute bronchitis Current Visit: Yes Status: Acute Assessment and plan: as listed above Qualifiers: Bronchitis organism: unspecified organism Qualified Code(s): J20.9 - Acute bronchitis, unspecified (4) Diabetes Current Visit: No Status: Chronic Assessment and plan: Hold oral antihyperglycemic agents at this time noted to be hyperglycemic likely secondary to steroid use continue home dose of basal insulin increased to high dose sliding scale insulin algorithm monitor FS and BG ADA diet Qualifiers: Diabetes mellitus type: type 2 Diabetes mellitus complication status: without complication Diabetes mellitus [facility] insulin use: with [facility] use Qualified Code(s): E11.9 - Type 2 diabetes mellitus without complications ; Z79.4 - terminal manager (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; Z79.4 - retirement (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; Z79.4 - terminal manager (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; Z79.4 - terminal manager ( 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 (5) Tobacco abuse Current Visit: No Status: Chronic Assessment and plan: smoking cessation counseling provided pt trying to quit refused nicotine supplementation (6) DVT prophylaxis Current Visit: Yes Status: Acute Assessment and plan: Heparin SQ (7) Hyperlipemia Current Visit: Yes Status: Chronic Assessment and plan: continue home dose of lipitor Qualifiers: Hyperlipidemia type: unspecified Qualified Code(s): E78.5 - Hyperlipidemia , unspecified (8) Obesity (BMI 30-39.9) Current Visit: Yes Status: Chronic - Subjective Interval history: Patient seen and examined at bedside. Pt noted to be in worsening respiratory distress with persistent productive cough. States guaifenesin is helping Will d/c prednisone and start IV steroids - Constitutional Vitals: Temp Pulse Resp BP Pulse Ox 98.0 F 92 17 124/78 96 01/27/17 11:58 01/27/17 11:58 01/27/17 11:58 01/27/17 11:58 01/27/17 11:58 General appearance: Present: cooperative, A&O X 3, pleasant, no acute distress, obese, answers questions appropriately - Head Head exam: Present: atraumatic, normocephalic - Respiratory Respiratory exam: Present: decreased breath sounds. Absent: respiratory distress, wheezes (coarse breath sounds diffusely) - Cardiovascular Cardiovascular exam: Present: RRR, +S1, +S2. Absent: diastolic murmur, gallop, rubs, systolic murmur - GI/Abdominal GI/Abdominal exam: Present: normal bowel sounds, soft, no peritoneal signs. Absent: distended, tenderness - Extremities Exam Extremities exam: Present: warm, radial pulses palpable and symmetrical. Absent : calf tenderness, tenderness - Neurological Exam Neurological exam: Present: alert, oriented X3 - Psychiatric Psychiatric exam: Present: normal affect, normal mood Internal Medicine: Result - Labs CBC & Chem 7: 01/27/17 06:56 01/27/17 06:56 Labs: Short CBC 01/27/17 Range/Units 06:56 WBC 5.2 (4.3-11.1) K/mcL Hgb 13.5 (11.5-15.4) g/dL Hct 39.3 (35.3-44.9) % Plt Count 187 (140-400) K/mcL Neutrophils # 4.4 (1.6-8.9) K/mcL BMP 01/27/17 06:56 Sodium 132 L Potassium 4.3 Chloride 100 Carbon Dioxide 24 BUN 19 Creatinine 0.88 Glucose 337 H Calcium 8.9 - VTE Documentation of Mechanical Device: Graduated compression elastic hosiery Consult Discharge Plan - Plan Referrals: Ramone Cee DO [Primary Care Provider] -
[2017-01-27] MEDS ORDERED: levoFLOXacin 250 MG TABLET PO ONE (16:28)
[2017-01-27] MEDS: MethylPREDNISolone 40 MG/ML VIAL IVP SCH (18:44)
--- NOTE | 2017-01-27 20:08 | Electrocardiograph Report ---
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
[2017-01-28] MEDS: MethylPREDNISolone 40 MG/ML VIAL IVP SCH ×2 (00:19→09:43)
[2017-01-28] MEDS: Ipratropium/Albuterol Neb 3 ML IH SCH ×6 (03:52→23:32)
[2017-01-28] MEDS: *HR* Heparin 5,000 UNIT/ML VIAL SQ SCH ×3 (05:29→21:38)
[2017-01-28] MEDS: Acetaminophen 325 MG TABLET PO PRN ×2 (05:29→12:28)
[2017-01-28] MEDS: Insulin LISPRO 300 UNITS/3 ML VIAL SQ SCH ×5 (08:37→21:37)
[2017-01-28] MEDS: Insulin DETEMIR 100 UNIT/ML X5UNITS SQ SCH ×2 (08:38→21:37)
[2017-01-28] MEDS ORDERED: 0.9 % Sodium Chloride 500 ML IVC ONE (12:52)
[2017-01-28] MEDS: levoFLOXacin 750 MG TABLET PO SCH (13:31)
--- NOTE | 2017-01-28 15:11 | Internal Med Progress Note ---
Date of Encounter: 01/28/17 Time of Encounter: 14:20 - Assessment and plan (1) Dyspnea Current Visit: No Status: Acute Assessment and plan: Reports of persistent cough and continues to be O2 dependent Pt does not have diagnosed COPD however given tobacco abuse history, concern for underlying COPD acute respiratory distress secondary to COPD exac/acute bronchitis will continue systemic steroids, decreased to Solumedrol 40mg IV q12h and bronchodilator support IV abx (Levaquin 750mg IV qd) O2 supplementation, maintain O2 sat>92% d/c Guaifenesin/Dextromorphan prn cough and started Guaifenesin/Codeine prn cough will closely monitor respiratory status Will benefit from outpatient PFTs after discharge Qualifiers: Dyspnea type: shortness of breath Qualified Code(s): R06.02 - Shortness of breath (2) COPD exacerbation Current Visit: Yes Status: Acute Assessment and plan: as listed above Pt will benefit from outpatient pulmonary function tests. (3) Acute bronchitis Current Visit: Yes Status: Acute Assessment and plan: as listed above Qualifiers: Bronchitis organism: unspecified organism Qualified Code(s): J20.9 - Acute bronchitis, unspecified (4) Diabetes Current Visit: No Status: Chronic Assessment and plan: Hold oral antihyperglycemic agents at this time noted to be hyperglycemic likely secondary to steroid use insulin adjusted as per 24 hour additional insulin requirement Levemir 20units SQ qm and 30units SQ qhs humalog 10units TIDAC high dose sliding scale insulin algorithm monitor FS and BG ADA diet Qualifiers: Diabetes mellitus type: type 2 Diabetes mellitus complication status: without complication Diabetes mellitus care home insulin use: with hospice liaison use Qualified Code(s): E11.9 - Type 2 diabetes mellitus without complications ; 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; Z79.4 - [facility] (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; Z79.4 - [facility] (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; Z79.4 - [facility] ( 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 (5) Tobacco abuse Current Visit: No Status: Chronic Assessment and plan: smoking cessation counseling provided pt trying to quit refused nicotine supplementation (6) DVT prophylaxis Current Visit: Yes Status: Acute Assessment and plan: Heparin SQ (7) Hyperlipemia Current Visit: Yes Status: Chronic Assessment and plan: continue home dose of lipitor Qualifiers: Hyperlipidemia type: unspecified Qualified Code(s): E78.5 - Hyperlipidemia , unspecified (8) Obesity (BMI 30-39.9) Current Visit: Yes Status: Chronic - Subjective Interval history: Patient seen and examined at bedside. Reports of feeling mildly better compared to previous day and continues to have persistent cough. She reports of having inadequate relief with the guaifenesin/dextromorphan. Noted to be hyperglycemic, insulin dosage adjusted accordingly - Constitutional Vitals: Temp Pulse Resp BP Pulse Ox 97.5 F L 91 15 149/80 94 01/28/17 12:11 01/28/17 12:11 01/28/17 12:11 01/28/17 12:11 01/28/17 12:11 General appearance: Present: cooperative, A&O X 3, pleasant, no acute distress, obese, answers questions appropriately - Head Head exam: Present: atraumatic, normocephalic - Eye Eye exam: Present: conjuntiva pink, sclera anicteric - Respiratory Respiratory exam: Present: decreased breath sounds. Absent: respiratory distress, wheezes - Cardiovascular Cardiovascular exam: Present: RRR, +S1, +S2. Absent: diastolic murmur, gallop, rubs, systolic murmur - GI/Abdominal GI/Abdominal exam: Present: normal bowel sounds, soft, no peritoneal signs. Absent: distended, tenderness - Extremities Exam Extremities exam: Present: warm, radial pulses palpable and symmetrical. Absent : calf tenderness, cyanotic, pedal edema - Neurological Exam Neurological exam: Present: alert, oriented X3 - Psychiatric Psychiatric exam: Present: normal affect, normal mood Internal Medicine: Result - Labs CBC & Chem 7: 01/27/17 06:56 01/27/17 06:56 - VTE Documentation of Mechanical Device: Graduated compression elastic hosiery Consult Discharge Plan - Plan Referrals: Ramone Cee DO [Primary Care Provider] -
[2017-01-28] MEDS ORDERED: levoFLOXacin 250 MG TABLET PO ONE (15:56)
[2017-01-28] MEDS: GuaiFENesin/Codeine Oral Soln 5 ML UDC PO PRN ×2 (18:20→21:51)
[2017-01-28] MEDS ORDERED: MethylPREDNISolone 40 MG/ML VIAL IVP SCH (22:00)
[2017-01-29] MEDS: Ipratropium/Albuterol Neb 3 ML IH SCH ×6 (04:17→23:36)
[2017-01-29 07:43] LABS: Basophils % 0.3 %; Eosinophils % 0.2 %; Hematocrit 39.7 % (35.3-44.9); Hemoglobin 13.5 g/dL (11.5-15.4); Lymphocytes # 0.6 K/mcL (0.6-4.6); Mean Corpuscular Hemoglobin 29.3 pg (28.0-33.3); Mean Corpuscular Volume 86.1 fL (83.0-100.0); Mean Platelet Volume 11.6 fL (9.4-12.4); Monocytes # 0.3 K/mcL (0.0-1.3); Monocytes % 4.2 %; Neutrophils # 5.3 K/mcL (1.6-8.9); Platelet Count 183 K/mcL (140-400); Red Blood Count 4.61 M/mcL (3.82-4.97); Red Cell Distribution Width 12.9 % (11.5-14.5); Segmented Neutrophils % 81.3 %
[2017-01-29 07:55] LABS: BUN/Creatinine Ratio 28 (6-26); Blood Urea Nitrogen 28 mg/dL (7-20); Calcium 9.2 mg/dL (8.6-10.8); Carbon Dioxide 23 mEq/L (19-29); Chloride 101 mEq/L (98-109); Glucose 326 mg/dL (70-99); Magnesium 2.1 mg/dL (1.6-2.6); Osmolality,Calculated 294 (280-300); Phosphorous 3.6 mg/dL (2.3-4.7); Potassium 4.9 mEq/L (3.5-4.5); Sodium 133 mEq/L (136-145); eGFR For African Americans > 60 (> 60); eGFR For Non-African Americans 56 (> 60)
[2017-01-29] MEDS: *HR* Heparin 5,000 UNIT/ML VIAL SQ SCH ×3 (07:59→22:38)
[2017-01-29] MEDS: GuaiFENesin/Codeine Oral Soln 5 ML UDC PO PRN (08:02)
[2017-01-29] MEDS: Insulin LISPRO 300 UNITS/3 ML VIAL SQ SCH ×7 (08:09→22:41)
[2017-01-29] MEDS: Insulin DETEMIR 100 UNIT/ML X5UNITS SQ SCH ×4 (08:10→22:40)
[2017-01-29] MEDS ORDERED: Insulin DETEMIR 100 UNIT/ML X5UNITS SQ ONE (09:26)
--- NOTE | 2017-01-29 09:50 | Internal Med Progress Note ---
Date of Encounter: 01/29/17 Time of Encounter: 09:47 - Assessment and plan (1) Dyspnea Current Visit: No Status: Acute Assessment and plan: Reports of persistent cough and continues to be O2 dependent Pt does not have diagnosed COPD however given tobacco abuse history, concern for underlying COPD acute respiratory distress secondary to COPD exac/acute bronchitis will continue systemic steroids, will d/c solumedrol and start prednisone continue bronchodilator support IV abx (Levaquin 750mg IV qd) O2 supplementation, maintain O2 sat>92% continue Guaifenesin/Codeine prn cough and add Mucinex 600mg PO BID TRUE will closely monitor respiratory status Will benefit from outpatient PFTs after discharge Qualifiers: Dyspnea type: shortness of breath Qualified Code(s): R06.02 - Shortness of breath (2) COPD exacerbation Current Visit: Yes Status: Acute Assessment and plan: as listed above Pt will benefit from outpatient pulmonary function tests. (3) Acute bronchitis Current Visit: Yes Status: Acute Assessment and plan: as listed above Qualifiers: Bronchitis organism: unspecified organism Qualified Code(s): J20.9 - Acute bronchitis, unspecified (4) Diabetes Current Visit: No Status: Chronic Assessment and plan: Hold oral antihyperglycemic agents at this time noted to be hyperglycemic likely secondary to steroid use insulin adjusted as per 24 hour additional insulin requirement Levemir 40units SQ qm and 30units SQ qhs humalog 20units TIDAC high dose sliding scale insulin algorithm monitor FS and BG Will start on IVF ADA diet Qualifiers: Diabetes mellitus type: type 2 Diabetes mellitus complication status: without complication Diabetes mellitus mcc insulin use: with bottom wheeler use Qualified Code(s): E11.9 - Type 2 diabetes mellitus without complications ; Z79.4 - investigator cash shortage (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; Z79.4 - investigator cash shortage (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; Z79.4 - [facility] (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; Z79.4 - [facility] ( 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 (5) Tobacco abuse Current Visit: No Status: Chronic Assessment and plan: smoking cessation counseling provided pt trying to quit refused nicotine supplementation (6) DVT prophylaxis Current Visit: Yes Status: Acute Assessment and plan: Heparin SQ (7) Hyperlipemia Current Visit: Yes Status: Chronic Assessment and plan: continue home dose of lipitor Qualifiers: Hyperlipidemia type: unspecified Qualified Code(s): E78.5 - Hyperlipidemia , unspecified (8) Obesity (BMI 30-39.9) Current Visit: Yes Status: Chronic - Subjective Interval history: Patient seen and examined at bedside. Reports of feeling better compared to previous day, states she has improvement in cough with the guaifenesin/codeine combination but still woke up this morning with severe coughing spells. Also noted to be severe hyperglycemic likely secondary to steroid use. Currently saturating well on room air. No overnight issues reported will monitor overnight given persistent cough, and hyperglycemia, likely d/c in am. - Constitutional Vitals: Temp Pulse Resp BP Pulse Ox 97.5 F L 76 14 158/88 97 01/29/17 07:21 01/29/17 07:21 01/29/17 07:21 01/29/17 07:21 01/29/17 07:21 General appearance: Present: cooperative, A&O X 3, pleasant, no acute distress, obese, answers questions appropriately - Head Head exam: Present: atraumatic, normocephalic - Eye Eye exam: Present: conjuntiva pink, sclera anicteric - Respiratory Respiratory exam: Absent: rales, respiratory distress, wheezes - Cardiovascular Cardiovascular exam: Present: RRR, +S1, +S2. Absent: diastolic murmur, gallop, rubs, systolic murmur - GI/Abdominal GI/Abdominal exam: Present: normal bowel sounds, soft, no peritoneal signs. Absent: distended, tenderness - Extremities Exam Extremities exam: Present: warm, radial pulses palpable and symmetrical. Absent : calf tenderness, cyanotic, pedal edema - Neurological Exam Neurological exam: Present: alert, oriented X3 - Psychiatric Psychiatric exam: Present: normal affect, normal mood Internal Medicine: Result - Labs CBC & Chem 7: 01/29/17 07:00 01/29/17 07:00 Labs: Short CBC 01/29/17 Range/Units 07:00 WBC 6.5 (4.3-11.1) K/mcL Hgb 13.5 (11.5-15.4) g/dL Hct 39.7 (35.3-44.9) % Plt Count 183 (140-400) K/mcL Neutrophils # 5.3 (1.6-8.9) K/mcL BMP 01/29/17 07:00 Sodium 133 L Potassium 4.9 H Chloride 101 Carbon Dioxide 23 BUN 28 H Creatinine 1.01 Glucose 326 H Calcium 9.2 - VTE Documentation of Mechanical Device: Graduated compression elastic hosiery Consult Discharge Plan - Plan Referrals: Ramone Cee DO [Primary Care Provider] -
[2017-01-29] MEDS: 0.9 % Sodium Chloride 1,000 ML IVC SCH ×2 (10:59→22:47)
[2017-01-29] MEDS: predniSONE 20 MG TABLET PO SCH (10:59)
[2017-01-29] MEDS: levoFLOXacin 750 MG TABLET PO SCH (15:25)
[2017-01-29] MEDS: Acetaminophen 325 MG TABLET PO PRN (22:37)
[2017-01-30] MEDS: Ipratropium/Albuterol Neb 3 ML IH SCH ×3 (04:34→11:12)
[2017-01-30 05:47] LABS: Basophils % 0.5 %; Eosinophils % 0.1 %; Hematocrit 37.4 % (35.3-44.9); Hemoglobin 12.6 g/dL (11.5-15.4); Immature Granulocytes % 5.4 % (0-4); Lymphocytes # 1.9 K/mcL (0.6-4.6); Lymphocytes % 22.6 %; Mean Corpuscular HGB Conc 33.7 g/dL (31.6-35.5); Mean Corpuscular Volume 86.2 fL (83.0-100.0); Mean Platelet Volume 11.5 fL (9.4-12.4); Monocytes # 0.6 K/mcL (0.0-1.3); Monocytes % 7.1 %; Neutrophils # 5.3 K/mcL (1.6-8.9); Platelet Count 172 K/mcL (140-400); Red Blood Count 4.34 M/mcL (3.82-4.97); Red Cell Distribution Width 12.8 % (11.5-14.5); Segmented Neutrophils % 64.3 %
[2017-01-30 06:14] LABS: BUN/Creatinine Ratio 37 (6-26); Blood Urea Nitrogen 35 mg/dL (7-20); Calcium 8.7 mg/dL (8.6-10.8); Carbon Dioxide 24 mEq/L (19-29); Chloride 104 mEq/L (98-109); Glucose 172 mg/dL (70-99); Osmolality,Calculated 296 (280-300); Phosphorous 3.7 mg/dL (2.3-4.7); Potassium 4.2 mEq/L (3.5-4.5); Sodium 137 mEq/L (136-145); eGFR For African Americans > 60 (> 60); eGFR For Non-African Americans > 60 (> 60)
[2017-01-30] MEDS: *HR* Heparin 5,000 UNIT/ML VIAL SQ SCH ×2 (06:27→13:13)
[2017-01-30 06:45] LABS: Platelet Estimate Normal (Normal)
[2017-01-30] MEDS ORDERED: Insulin DETEMIR 100 UNIT/ML X5UNITS SQ SCH (09:00)
[2017-01-30] MEDS: Insulin LISPRO 300 UNITS/3 ML VIAL SQ SCH ×4 (09:05→13:12)
[2017-01-30] MEDS: predniSONE 20 MG TABLET PO SCH (09:05)
--- NOTE | 2017-01-30 10:06 | Discharge Summary ---
Date of Encounter: 01/30/17 Time of Encounter: 10:01 - Discharge Diagnosis (1) Dyspnea Priority: Primary Status: Acute Qualifiers: Dyspnea type: shortness of breath Qualified Code(s): R06.02 - Shortness of breath (2) COPD exacerbation Priority: Primary Status: Acute (3) Acute bronchitis Priority: Primary Status: Acute Qualifiers: Bronchitis organism: unspecified organism Qualified Code(s): J20.9 - Acute bronchitis, unspecified (4) Diabetes Priority: Secondary Status: Chronic Qualifiers: Diabetes mellitus type: type 2 Diabetes mellitus complication status: without complication Diabetes mellitus buttermaker insulin use: with buttermaker use Qualified Code(s): E11.9 - Type 2 diabetes mellitus without complications ; Z79.4 - long term care pharmacist (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; Z79.4 - [facility] (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; Z79.4 - [facility] (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; Z79.4 - [facility] ( 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 (5) Tobacco abuse Priority: Secondary Status: Chronic (6) DVT prophylaxis Priority: Secondary Status: Acute (7) Hyperlipemia Priority: Secondary Status: Chronic Qualifiers: Hyperlipidemia type: unspecified Qualified Code(s): E78.5 - Hyperlipidemia , unspecified (8) Obesity (BMI 30-39.9) Priority: Secondary Status: Chronic - Discharge Medications Prescriptions: Ipratropium/Albuterol Neb [Duoneb] 3 ml IH [id number] #1 inhsol Albuterol Sulfate [Albuterol Inhaler] 2 puff IH Q4H PRN #1 inhaler PRN Reason: Shortness Of Breath GuaiFENesin ER [Mucinex] 600 mg PO BID #10 tbbp.12hr GuaiFENesin/Codeine [ROBITUSSIN w/CODEINE] 10 ml PO Q4H PRN #200 ml PRN Reason: Cough levoFLOXacin [Levaquin] 750 mg PO Q24H #2 tablet predniSONE [PredniSONE] 40 mg PO DAILY #5 tablet Home Medications: Insulin Glargine,Hum.rec.anlog [Lantus Solostar] 20 unit SQ QAM 05/09/16 [ History] metFORMIN [Glucophage] 500 mg PO BID 05/09/16 [History] Atorvastatin [Lipitor] 10 mg PO HS #30 tablet 05/10/16 [Rx] Albuterol Sulfate [Albuterol Inhaler] 2 puff IH Q4H PRN #1 inhaler 01/30/17 [Rx] GuaiFENesin ER [Mucinex] 600 mg PO BID #10 tbbp.12hr 01/30/17 [Rx] GuaiFENesin/Codeine [ROBITUSSIN w/CODEINE] 10 ml PO Q4H PRN #200 ml 01/30/17 [Rx ] Ipratropium/Albuterol Neb [Duoneb] 3 ml IH [id number] #1 inhsol 01/30/17 [Rx] levoFLOXacin [Levaquin] 750 mg PO Q24H #2 tablet 01/30/17 [Rx] predniSONE [PredniSONE] 40 mg PO DAILY #5 tablet 01/30/17 [Rx] Allergies/Adverse Reactions: 3 Allergy/AdvReac Type Severity Reaction Status Date / Time nabumetone [From Relafen] AdvReac Dizziness Verified 01/26/17 11:45 Date of admission: 01/26/17 14:49 Primary care physician: Ramone Cee Discharging clinician: Anabel Gay Anticipated date of discharge: 01/30/17 - Patient Status Disposition: Home, Self-Care Condition: Good Functional capacity at discharge: independent ambulation Overall status at discharge: patient is back to baseline - Discharge Instructions Follow Up With: Ramone Cee DO [Primary Care Provider] - Additional Instructions: Please follow up with your primary care physician within five days after your discharge from the hospital Please follow up with pulmonology within one week after your discharge from the hospital. Please ask your boarding house manager about pulmonary function tests continue oral steroids and antibiotics as prescribed. continue home medications as prescribed by your primary care physician. smoking cessation is advised - Diet and Activity Activity: resume usual activities as tolerated Diet: diabetic diet Hospital course: Ms. Cuadra is a 61 year old female with pmh of DM, hyperlipidemia, tobacco abuse who presented to the ER for evaluation of shortness of breath. Given pt's smoking history, there was concern for underlying undiagnosed COPD due to which she was started on systemic steroids, bronchodilator support, and abx. She also required O2 supplementation. She was slowly weaned off the iv steroids and started on po steroids. She continued to have persistent cough due to which guaifenesin/codeine was added. At this time, she is hemodynamically stable and saturating well on room air. She will be discharged to home with follow up with pcp and pulmonology. Pt demonstrates understanding of her diagnosis and agrees with the discharge care and plan. - Time Spent with Patient Total time spent providing and/or coordinating discharge services: Less than 30 minutes - Constitutional Vitals: Temp Pulse Resp BP Pulse Ox 97.9 F 83 16 155/82 95 01/30/17 07:40 01/30/17 07:40 01/30/17 07:40 01/30/17 07:40 01/30/17 07:40 General appearance: Present: cooperative, A&O X 3, pleasant, no acute distress, obese, answers questions appropriately - Head Head exam: Present: atraumatic, normocephalic - Eye Eye exam: Present: normal appearance, conjuntiva pink, sclera anicteric - Respiratory Respiratory exam: Present: CTAB. Absent: accessory muscle use, rales, rhonchi, wheezes - Cardiovascular Cardiovascular exam: Present: RRR, +S1, +S2. Absent: diastolic murmur, gallop, rubs, systolic murmur - GI/Abdominal GI/Abdominal exam: Present: normal bowel sounds, soft, no peritoneal signs. Absent: distended, tenderness - Extremities Exam Extremities exam: Present: warm, radial pulses palpable and symmetrical. Absent : calf tenderness, pedal edema - Neurological Exam Neurological exam: Present: alert, oriented X3 - Psychiatric Psychiatric exam: Present: normal affect, normal mood - VTE Documentation of Mechanical Device: Graduated compression elastic hosiery
[2017-01-30 11:50] VITALS: BP 144/76
[2017-01-30] MEDS: levoFLOXacin 750 MG TABLET PO SCH (13:11)
== END 2017-01-30 14:30 | disposition home or self-care (01) ==
LOC: EMEROO 11:39 → 3NENU 11:39 → SUATTDRO 14:49 → 3NENU 14:59
PROVIDERS: ADMIT Internal Medicine; ATTEND Internal Medicine

== ENCOUNTER 2017-11-29 15:18 | Inpatient (IN) ==
[2017-11-29] MEDS ORDERED: 0.9 % Sodium Chloride 1,000 ML IVC ONE (16:44)
[2017-11-29] MEDS ORDERED: Cefepime HCl 1,000 MG in Water for inj. (sterile) 20 ML 10 ML IVP STA (16:44)
--- NOTE | 2017-11-29 16:49 | Emergency Department Note ---
Disposition Clinical Impression: Osteomyelitis Qualifiers: Osteomyelitis type: other acute Osteomyelitis location: foot Laterality: left Qualified Code(s): M86.172 - Other acute osteomyelitis, left ankle and foot Diabetic ulcer of foot, limited to breakdown of skin Qualifiers: Diabetic foot ulcer location: toe Diabetes mellitus type: type 2 Laterality: left Qualified Code(s): E11.621 - Type 2 diabetes mellitus with foot ulcer Disposition: Admitted As Inpatient Condition: Undetermined Referrals: Ramone Cee DO [Primary Care Provider] - Forms: ED Satisfaction Letter Time of Disposition: 17:54 Extremity Problem HPI - General Chief complaint: ED Extremity Problem,Nontraumatic Stated complaint: "L foot swelling/pain" Time Seen by Provider: 11/29/17 16:12 Source: patient Mode of arrival: ambulatory Limitations: no limitations Nursing Notes Reviewed: Yes Vital Signs Reviewed: Yes - History of Present Illness HPI Narrative: 61 year old female with poorly controlled diabetes who is poorly compliant with insulin arrives to the emergency department with ulceration and cellulitis of her left great toe and left foot. Patient states that her ulcerations been there for a couple months but states that the redness, heat and pain that is severe has been ongoing over the past 48 hours. The patient denies any other complaints at this time including fevers, chills. The patient has seen dry clipper tender for similar complaint in the past but denies any change in this time. She is resting comfortably at this time. Pain Scale: 10 - Related Data Home Medications Medication Instructions Recorded Confirmed HYDROcodone/Acet 7.5/325 mg [[place] 1 tab PO BID 11/29/17 11/29/17 7.5-325 mg] Allergies Allergy/AdvReac Type Severity Reaction Status Date / Time nabumetone [From Relafen] AdvReac Dizziness Verified 11/29/17 17:09 All systems ED: reviewed and negative except as stated. Constitutional: Denies: fever, chills, weakness ENT ED: Denies: dysphagia Cardiovascular: Denies: chest pain Respiratory: Denies: dyspnea Gastrointestinal: Denies: abdominal pain Genitourinary: Denies: urgency, dysuria Musculoskeletal: Reports: myalgia. Denies: back pain Integumentary: Reports: lesions Neurological: Denies: headache, weakness, numbness Past Medical History - Past Medical History Attestation: Yes The following information was validated with the patient. Source: patient Medical history: Reports: diabetes, other (No history of ulcer disease). Denies : renal disease Surgical history: Reports: , orthopedic, other Psychiatric history: Reports: no psych history BANQUET KITCHEN SUPERVISOR history: Reports: no BANQUET KITCHEN SUPERVISOR history - Social History Smoking Status: Current every day smoker Smokeless Tobacco Status: No Alcohol use: Reports: none Drug use: Reports: none Physical Exam - General Limitations: no limitations General appearance: alert, in no apparent distress - Head Head exam: atraumatic, normocephalic, normal inspection - Eye Eye exam: Present: normal appearance, PERRL, EOMI - ENT ENT exam: normal exam, normal oropharynx, mucous membranes moist - Neck Neck exam: Present: normal inspection, full ROM, trachea midline - Chest Chest inspection: Present: normal inspection, symmetric chest wall rise - Respiratory Respiratory exam: Present: normal lung sounds bilaterally - Cardiovascular Cardiovascular exam: Present: regular rate, normal rhythm, normal heart sounds - Abdominal Exam Abdominal exam: Present: soft, Non-Tender. Absent: tenderness, distention, guarding, rebound, rigidity - Extremities Exam Extremities exam: Present: full ROM, tenderness, other (Patient has a ulceration on the distal aspect of her left great toe with cellulitis and inflammation radiating proximally.) - Neurological Exam Neurological exam: Present: alert, oriented X3 - Skin Skin exam: Present: warm, dry, intact, normal color Course - Consultations Consultation #1: Patient's x-ray demonstrates osteomyelitis. I spoke to Dr. Amaral in podiatry who will see the patient inpatient. Time: 17:27 Vital Signs Temperature 98.4 F 11/29/17 15:34 Pulse Rate 97 11/29/17 15:34 Respiratory Rate 16 11/29/17 15:34 Blood Pressure 141/79 11/29/17 15:34 O2 Sat by Pulse Oximetry 95 11/29/17 15:34 Temperature 98.4 F 11/29/17 17:16 Pulse Rate 93 11/29/17 17:28 Respiratory Rate 18 11/29/17 17:28 Blood Pressure 137/80 11/29/17 17:28 O2 Sat by Pulse Oximetry 98 11/29/17 17:28 Oxygen Delivery Oxygen Delivery Room Air Extremity Problem, Nontraumati - MDM Narrative Medical decision making narrative: Patient's workup in the emergency department industries findings consistent with osteomyelitis. Given the patient's poorly controlled diabetes and osteoporosis of the left great toe, the patient was started on cefepime and vancomycin. The patient will be seen by Dr. Amaral in podiatry, accepted by Dr. Waterman. - Lab Data Lab results reviewed: Yes I reviewed the patient's lab results. Result diagrams: 11/29/17 16:52 11/29/17 16:52 Lab Results 11/29/17 11/29/17 11/29/17 Range/Units 16:51 16:52 16:52 WBC 10.0 (4.3-11.1) K/mcL RBC 4.73 (3.82-4.97) M/mcL Hgb 13.9 (11.5-15.4) g/dL Hct 39.8 (35.3-44.9) % MCV 84.1 (83.0-100.0) fL MCH 29.4 (28.0-33.3) pg MCHC 34.9 (31.6-35.5) g/dL RDW 12.6 (11.5-14.5) % Plt Count 197 (140-400) K/mcL MPV 10.8 (9.4-12.4) fL Immature Gran % 1.0 (0-4) % Seg Neutrophils % 71.5 % Lymphocytes % 17.5 % Monocytes % 8.2 % Eosinophils % 1.3 % Basophils % 0.5 % Neutrophils # 7.2 (1.6-8.9) K/mcL Lymphocytes # 1.8 (0.6-4.6) K/mcL Monocytes # 0.8 (0.0-1.3) K/mcL Eosinophils # 0.1 (0.0-0.6) K/mcL Basophils # 0.1 (0.0-0.2) K/mcL ESR 49 H (0-15) mm/hr Sodium 133 L (136-145) mEq/L Potassium 3.9 (3.5-5.1) mEq/L Chloride 99 (98-107) mEq/L Carbon Dioxide 25 (23-29) mEq/L BUN 15 (8-23) mg/dL Creatinine 0.84 (0.60-1.20) mg/dL Est GFR ( Amer) > 60 (> 60) Est GFR (Non-Af Amer) > 60 (> 60) BUN/Creatinine Ratio 18 (6-26) Glucose 238 H (70-105) mg/dL Calculated Osmolality 285 (280-300) Calcium 9.4 (8.6-10.3) mg/dL - Radiology Data Radiology results reviewed: Yes I reviewed the patient's radiology results. Foot X-Ray 11/29/17 16:44 IMPRESSION: Findings compatible with osteomyelitis of the great toe. D/ / Ramone Amado MD / Ramone Amado MD Interpreting Provider: Ramone Amado MD
--- NOTE | 2017-11-29 16:53 | Emergency Department Note ---
Disposition Clinical Impression: Osteomyelitis, Diabetic ulcer of foot, limited to breakdown of skin Disposition: Admitted As Inpatient Condition: Undetermined Referrals: Ramone Cee DO [Primary Care Provider] - Forms: ED Satisfaction Letter General Adult HPI - General Chief complaint: ED Extremity Problem,Nontraumatic Stated complaint: "L foot swelling/pain" Time Seen by Provider: 11/29/17 16:12 Source: patient Mode of arrival: ambulatory Limitations: no limitations - History of Present Illness Pain Scale: 10 - Related Data Home Medications Medication Instructions Recorded Confirmed HYDROcodone/Acet 7.5/325 mg [[place] 1 tab PO BID 11/29/17 11/29/17 7.5-325 mg] Allergies Allergy/AdvReac Type Severity Reaction Status Date / Time nabumetone [From Relafen] AdvReac Dizziness Verified 11/29/17 17:09 Constitutional: Denies: fever, chills, weakness ENT ED: Denies: dysphagia Cardiovascular: Denies: chest pain Respiratory: Denies: dyspnea Gastrointestinal: Denies: abdominal pain Genitourinary: Denies: urgency, dysuria Musculoskeletal: Reports: myalgia. Denies: back pain Integumentary: Reports: lesions Neurological: Denies: headache, weakness, numbness Past Medical History - Past Medical History Medical history: Reports: diabetes, other (No history of ulcer disease). Denies : renal disease Surgical history: Reports: , orthopedic, other Psychiatric history: Reports: no psych history PARAMEDIC history: Reports: no PARAMEDIC history - Social History Smoking Status: Current every day smoker Smokeless Tobacco Status: No Alcohol use: Reports: none Drug use: Reports: none Physical Exam - General Limitations: no limitations General appearance: alert, in no apparent distress Course Vital Signs Temperature 98.4 F 11/29/17 15:34 Pulse Rate 97 11/29/17 15:34 Respiratory Rate 16 11/29/17 15:34 Blood Pressure 141/79 11/29/17 15:34 O2 Sat by Pulse Oximetry 95 11/29/17 15:34 Temperature 98.4 F 11/29/17 17:16 Pulse Rate 93 11/29/17 17:28 Respiratory Rate 18 11/29/17 17:28 Blood Pressure 137/80 11/29/17 17:28 O2 Sat by Pulse Oximetry 98 11/29/17 17:28 Oxygen Delivery Oxygen Delivery Room Air Medical Decision Making - Lab Data Result diagrams: 11/29/17 16:52 11/29/17 16:52 Lab Results 11/29/17 11/29/17 11/29/17 Range/Units 16:51 16:52 16:52 WBC 10.0 (4.3-11.1) K/mcL RBC 4.73 (3.82-4.97) M/mcL Hgb 13.9 (11.5-15.4) g/dL Hct 39.8 (35.3-44.9) % MCV 84.1 (83.0-100.0) fL MCH 29.4 (28.0-33.3) pg MCHC 34.9 (31.6-35.5) g/dL RDW 12.6 (11.5-14.5) % Plt Count 197 (140-400) K/mcL MPV 10.8 (9.4-12.4) fL Immature Gran % 1.0 (0-4) % Seg Neutrophils % 71.5 % Lymphocytes % 17.5 % Monocytes % 8.2 % Eosinophils % 1.3 % Basophils % 0.5 % Neutrophils # 7.2 (1.6-8.9) K/mcL Lymphocytes # 1.8 (0.6-4.6) K/mcL Monocytes # 0.8 (0.0-1.3) K/mcL Eosinophils # 0.1 (0.0-0.6) K/mcL Basophils # 0.1 (0.0-0.2) K/mcL ESR 49 H (0-15) mm/hr Sodium 133 L (136-145) mEq/L Potassium 3.9 (3.5-5.1) mEq/L Chloride 99 (98-107) mEq/L Carbon Dioxide 25 (23-29) mEq/L BUN 15 (8-23) mg/dL Creatinine 0.84 (0.60-1.20) mg/dL Est GFR ( Amer) > 60 (> 60) Est GFR (Non-Af Amer) > 60 (> 60) BUN/Creatinine Ratio 18 (6-26) Glucose 238 H (70-105) mg/dL Calculated Osmolality 285 (280-300) Calcium 9.4 (8.6-10.3) mg/dL Attestation Statement - Attestation Attestation: I examined this patient and my medical decision-making was reviewed with the Resident Physician. I agree with the documented findings, disposition and treatment plan as described except to the extent set forth below. Patient to the ED with chief complaint of a left great toe infection. She has had an ulcer at the tip of her toe for 2 months but it became erythematous and swollen 2 days ago. No fever. On examination she is a significant amount of swelling to the left great toe. No crepitus. Ulceration to the distal tip of the toe with black eschar. Plan. Culture sent. Imaging basic labs. IV antibiotic. Patient will need to be admitted for podiatry consult. Patient with osteomyelitis. Starting IV antibiotic. Foot X-Ray 11/29/17 16:44 IMPRESSION: Findings compatible with osteomyelitis of the great toe. D/ / Ramone Amado MD / Ramone Amado MD Interpreting Provider: Ramone Amado MD
[2017-11-29 17:03] LABS: Basophils # 0.1 K/mcL (0.0-0.2); Basophils % 0.5 %; Eosinophils # 0.1 K/mcL (0.0-0.6); Eosinophils % 1.3 %; Hematocrit 39.8 % (35.3-44.9); Hemoglobin 13.9 g/dL (11.5-15.4); Lymphocytes # 1.8 K/mcL (0.6-4.6); Lymphocytes % 17.5 %; Mean Corpuscular HGB Conc 34.9 g/dL (31.6-35.5); Mean Corpuscular Hemoglobin 29.4 pg (28.0-33.3); Mean Corpuscular Volume 84.1 fL (83.0-100.0); Mean Platelet Volume 10.8 fL (9.4-12.4); Monocytes # 0.8 K/mcL (0.0-1.3); Monocytes % 8.2 %; Neutrophils # 7.2 K/mcL (1.6-8.9); Platelet Count 197 K/mcL (140-400); Red Blood Count 4.73 M/mcL (3.82-4.97); Red Cell Distribution Width 12.6 % (11.5-14.5); Segmented Neutrophils % 71.5 %
[2017-11-29 17:27] LABS: BUN/Creatinine Ratio 18 (6-26); Blood Urea Nitrogen 15 mg/dL (8-23); Calcium 9.4 mg/dL (8.6-10.3); Carbon Dioxide 25 mEq/L (23-29); Chloride 99 mEq/L (98-107); Glucose 238 mg/dL (70-105); Osmolality,Calculated 285 (280-300); Potassium 3.9 mEq/L (3.5-5.1); Sodium 133 mEq/L (136-145); eGFR For Non-African Americans > 60 (> 60)
[2017-11-29] MEDS ORDERED: Gadolinium Contrast Agent (WT Based) IV PRN (17:59)
[2017-11-29] MEDS ORDERED: Albuterol 2.5 MG/3 ML NEBULIZER IH PRN (18:04)
[2017-11-29] MEDS ORDERED: Dextrose Gel 15 GM/37.5 ML TUBE PO PRN ×2 (18:20)
[2017-11-29] MEDS ORDERED: *HR* Dextrose 50 % in Water (Syg) 50 ML SYRINGE IVP PRN (18:20)
[2017-11-29] MEDS ORDERED: D5% in Water 1,000 ML IVC PRN (18:20)
[2017-11-29] MEDS ORDERED: *HR* HYDROcodone/Acet 5/325 mg TABLET PO PRN (18:22)
[2017-11-29] MEDS ORDERED: *HR* OxyCODONE Immed Rel 5 MG TABLET PO PRN (18:22)
[2017-11-29] MEDS ORDERED: Naloxone 0.4 MG/ML INJ IVP PRN (18:22)
[2017-11-29] MEDS ORDERED: Acetaminophen 325 MG TABLET PO PRN (18:22)
--- NOTE | 2017-11-29 19:33 | Internal Med History&Physical ---
Date of Encounter: 11/29/17 Time of Encounter: 19:31 Internal Medicine - H&P: HPI Chief complaint: "Left foot pain" Admitted From: Emergency Dept Plans for Post Hospital Care: Home History of present illness: Ms. Cuadra is a 61 year old female with PMH of uncontrolled Type II DM who presents to ED with increased pain in LLE. She has had a chronic diabetic ulcer of left great toe for "last few months." She states that she has not sought treatment for it. She did previously follow up with ground service equipment mechanic Dr. Amaral for left ankle issues. She states that she was at work yesterday and noticed increased pain, so she decided to come to ED today. Pain is located in left ankle, which is chronic for her, but only minimal in left great toe due to neuropathy. She states that she is diabetic, but has not been taking any medications for it because she cannot afford it. She is also a current smoker and has no desire to quit. She states that she does not have COPD, but uses an albuterol inhaler as needed. In the ED, left foot xray showed osteomyelitis of left great toe. Labwork was significant for normal WBC of 10.0 and increased blood glucose of 238. She was given IV cefepime and IV vancomycin in the ED. At the time of my examination, she denies any fever, chills, chest pain, SOB, nausea, vomiting, abdominal pain, changes in bladder, or changes in bowels. She states that LLE pain is controlled at this time. She has no complaints at this time. Past Med Surg Social Fam HX - Past Medical History Attestation: Yes The following information was validated with the patient. Source: patient Medical history: COPD, diabetes, other (No history of ulcer disease) Psychiatric history: no psych history - Past Surgical History Surgical History: , orthopedic, other Additional surgical history: right knee and left ankle - Social History Smoking Status: Current every day smoker Smokeless Tobacco Status: No Alcohol use: none Drug use: none - Family History Father Living Status: Hx Family Cardiac Disorders: (hypertension) Daughter Hx Family Cardiac Disorders: Yes (hypertension) - Additional Family History Additional family history: Family history reviewed with patient. Internal Medicine - H&P: Meds HYDROcodone/Acet 7.5/325 mg [[place] 7.5-325 mg] 1 tab PO BID 11/29/17 [History] 3 Allergy/AdvReac Type Severity Reaction Status Date / Time nabumetone [From Relafen] AdvReac Dizziness Verified 11/29/17 17:09 All Systems PM: A 10-system review of systems was performed and is negative for pertinent findings except as documented above in the HPI. - Constitutional Vitals: Temp Pulse Resp BP Pulse Ox 98.4 F 93 18 146/70 98 11/29/17 17:16 11/29/17 17:28 11/29/17 18:31 11/29/17 18:31 11/29/17 17:28 General appearance: Present: cooperative, A&O X 3, morbidly obese, no acute distress, answers questions appropriately Exam: See below. - Head Head exam: Absent: atraumatic, normocephalic - Eye Eye exam: Present: EOMI, PERRL. Absent: conjunctival injection, nystagmus, scleral icterus - ENT ENT exam: Present: mucous membranes moist, normal external ear exam, normal oropharynx - Neck Neck exam general surgery: Present: supple, trachea midline. Absent: lymphadenopathy, tenderness, thyromegaly - Respiratory Respiratory exam: Present: CTAB. Absent: accessory muscle use, rales, rhonchi, wheezes Additional comments: Normal WOB - Cardiovascular Cardiovascular exam: Present: RRR, +S1, +S2. Absent: diastolic murmur, gallop, rubs, systolic murmur Additional comments: No BLE edema except left great toe - GI/Abdominal GI/Abdominal exam: Present: normal bowel sounds, soft. Absent: distended, hepatomegaly, mass, splenomegaly, tenderness - Extremities Exam Additional comments: Ulceration on the distal aspect of left great toe with mild erythema, moderate edema, surrounding induration, and mild TTP - Neurological Exam Neurological exam: Present: alert, CN II-XII intact, oriented X3, no focal deficits, strengths equal and symetr throughout. Absent: motor sensory deficit , facial droop, speech deficit - Psychiatric Psychiatric exam: Present: normal affect, normal mood. Absent: agitated, anxious, depressed - Skin Skin exam: Present: dry, erythema (Left great toe), warm. Absent: cyanosis, intact (Ulceration of left great toe) Internal Med - H&P Results - Labs CBC & Chem 7: 11/29/17 16:52 11/29/17 16:52 - Assessment and plan (1) Foot osteomyelitis, left Current Visit: Yes Status: Acute Assessment and plan: Admit as inpatient with telemetry. Continue gentle IVF. Continue IV cefepime and IV vancomycin started in ED. Podiatry consulted in ED; appreciate input. Will obtain MRI LLE to confirm osteomyelitis. Consult ID and SW for likely extended course of IV antibiotics. Obtain glycemic control as per below. Will consult wound care for foot ulcer as per below. Pain control with tylenol, naproxen, norco, and oxycodone. Repeat labwork in AM. Qualifiers: Osteomyelitis type: unspecified type Qualified Code(s): M86.9 - Osteomyelitis, unspecified (2) Diabetic ulcer of foot, limited to breakdown of skin Current Visit: Yes Status: Acute Assessment and plan: Wound care consulted. Optimize glycemic control as per below. Pain control as per above. Qualifiers: Diabetic foot ulcer location: toe Diabetes mellitus type: type 2 Laterality: left Qualified Code(s): E11.621 - Type 2 diabetes mellitus with foot ulcer; L97.521 - Non-pressure chronic ulcer of other part of left foot limited to breakdown of skin (3) Diabetes Current Visit: Yes Status: Chronic Assessment and plan: Start accuchecks and high dose SSI QID AC/HS. Start levemir 5 units daily. Qualifiers: Diabetes mellitus type: type 2 Diabetes mellitus retirement insulin use: without retirement use Diabetes mellitus complication status: with skin complications Diabetes mellitus complication detail: with foot ulcer Qualified Code(s): E11.621 - Type 2 diabetes mellitus with foot ulcer; L97.509 - Non-pressure chronic ulcer of other part of unspecified foot with unspecified severity (4) COPD (chronic obstructive pulmonary disease) Current Visit: Yes Status: Chronic Assessment and plan: Start albuterol nebs Q4H PRN SOB/wheezing. Qualifiers: COPD type: unspecified COPD Qualified Code(s): J44.9 - Chronic obstructive pulmonary disease, unspecified (5) Obesity (BMI 30-39.9) Current Visit: Yes Status: Chronic Assessment and plan: Counselled on lifestyle modifications. (6) Tobacco abuse Current Visit: Yes Status: Chronic Assessment and plan: Counselled on smoking cessation and its importance in wound healing. (7) DVT prophylaxis Current Visit: Yes Status: Acute Assessment and plan: Start SCDs and lovenox 40 mg SQ QD. - Time Spent With Patient Total time spent is greater than 50% in coordination of care (as documented) at patient's floor/unit and/or counseling patient: less than 15 minutes
[2017-11-29] MEDS: Insulin LISPRO 300 UNITS/3 ML VIAL SQ SCH ×2 (20:11→20:55)
[2017-11-29 20:16] LABS: Hematocrit 41.2 % (35.3-44.9); Hemoglobin 14.1 g/dL (11.5-15.4); Mean Corpuscular HGB Conc 34.2 g/dL (31.6-35.5); Mean Corpuscular Hemoglobin 29.1 pg (28.0-33.3); Mean Corpuscular Volume 84.9 fL (83.0-100.0); Platelet Count 204 K/mcL (140-400); Red Blood Count 4.85 M/mcL (3.82-4.97); Red Cell Distribution Width 12.7 % (11.5-14.5); Segmented Neutrophils % 67.9 %
[2017-11-29 20:17] LABS: Basophils # 0.1 K/mcL (0.0-0.2); Basophils % 0.5 %; Eosinophils # 0.2 K/mcL (0.0-0.6); Eosinophils % 1.5 %; Immature Granulocytes % 1.3 % (0-4); Lymphocytes # 1.9 K/mcL (0.6-4.6); Monocytes % 9.8 %; Neutrophils # 6.7 K/mcL (1.6-8.9)
[2017-11-29 20:40] LABS: Chol/HDL Ratio 6.9 (0-4.9)
[2017-11-29 21:08] LABS: Estimated Average Glucose 177 mg/dl; Hemoglobin A1C 7.8 %
[2017-11-30] MEDS: Insulin DETEMIR 100 UNIT/ML X5UNITS SQ SCH ×2 (00:01→09:54)
[2017-11-30] MEDS: Cefepime HCl 2,000 MG in 0.9 % Sodium Chloride Mini Bag 100 ML IVPB SCH ×2 (00:52→09:54)
[2017-11-30 02:46] LABS: BUN/Creatinine Ratio 24 (6-26); Blood Urea Nitrogen 18 mg/dL (8-23); Calcium 8.8 mg/dL (8.6-10.3); Carbon Dioxide 22 mEq/L (23-29); Chloride 103 mEq/L (98-107); Glucose 255 mg/dL (70-105); Osmolality,Calculated 285 (280-300); Phosphorous 3.9 mg/dL (2.7-4.5); Potassium 3.8 mEq/L (3.5-5.1); Sodium 132 mEq/L (136-145); eGFR For Non-African Americans > 60 (> 60)
[2017-11-30] MEDS: 0.9 % Sodium Chloride 1,000 ML IVC SCH ×4 (05:18→23:59)
[2017-11-30] MEDS: *HR* Enoxaparin 40 MG/0.4 ML SYRINGE SQ SCH (06:06)
[2017-11-30] MEDS: Insulin LISPRO 300 UNITS/3 ML VIAL SQ SCH ×4 (09:54→20:41)
--- NOTE | 2017-11-30 12:09 | Infectious Disease Consult ---
Date of Encounter: 11/30/17 Time of Encounter: 12:09 Assessment and Plan (1) Foot osteomyelitis, left Status: Acute Assessment and plan: Location: Left great toe. Causative organism: Unclear. Swab culture obtained and pending. Likely secondary to non-healing DFU. X-ray of the left foot showed findings consistent with OM of the left great toe. MRI showed findings consistent with OM of the distal phalanx and possible OM vs. reactive osteitis of the proximal phalanx of the great toe. Podiatry consulted. Await recommendations. The patient has some mild leukocytosis on admission, but otherwise has no SIRS criteria and does not appear toxic. Check ESR and CRP. Recommend holding further antibiotics until appropriate intra-op cultures can be obtained. Re-start Vancomycin IV, pharmacy to dose, and Cefepime 2 grams IV Q12H post-op. Await cultures and de-escalate antibiotics if/when able. Duration of treatment depends on the clinical picture, but likely a total of 6 weeks of IV antibiotics. Monitor renal function and for drug toxicity and dose-adjust antibiotics. Consult VAT prior to discharge once final antibiotic regimen has been determined. social services analyst consult to assist with discharge planning. Further OPAT recommendations to follow from the ID team pending culture results and clinical outcomes. Qualifiers: Osteomyelitis type: unspecified type Qualified Code(s): M86.9 - Osteomyelitis, unspecified (2) Diabetic ulcer of foot, limited to breakdown of skin Status: Acute Assessment and plan: Location: Plantar aspect of the left great toe. Etiology unclear. Patient denies known trauma. Podiatry consulted. Await recommendations. Antibiotic recommendations as above. Qualifiers: Diabetic foot ulcer location: toe Diabetes mellitus type: type 2 Laterality: left Qualified Code(s): E11.621 - Type 2 diabetes mellitus with foot ulcer; L97.521 - Non-pressure chronic ulcer of other part of left foot limited to breakdown of skin (3) Type II diabetes mellitus Status: Acute Assessment and plan: Hgb A1C 7.8%. Recommend aggressive glucose monitoring and control to promote wound healing and prevent re-infection. Management per the primary team. social services analyst to assist with the patient's medication costs on discharge. Qualifiers: Diabetes mellitus remote computer terminal operator insulin use: with remote computer terminal operator use Diabetes mellitus complication status: with unspecified complications Qualified Code(s) : E11.8 - Type 2 diabetes mellitus with unspecified complications; Z79.4 - longterm (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 (4) COPD (chronic obstructive pulmonary disease) Status: Chronic Qualifiers: COPD type: unspecified COPD Qualified Code(s): J44.9 - Chronic obstructive pulmonary disease, unspecified (5) Obesity (BMI 30-39.9) Status: Chronic (6) Tobacco abuse Status: Chronic Infectious Disease HPI - Data of Consult Patient: new to practice Consult date: 11/30/17 Requesting Physician: Eva Cavazos MD Primary Care Provider: Ramone Cee - Consult Narrative Reason for consult: Left foot osteomyelitis History of present illness: Ms. Cuadra is a 61 year old female with a past medical history of diabetes and COPD. The patient was admitted to the hospital November 29 for osteoarthritis and diabetic foot ulcer left foot. 4 consult November 30 for further recommendations for ostomy myelitis of the left foot. Briefly, the patient is a 61-year-old female with past medical history as stated above. The patient presented to the emergency department with complaints of increased pain, swelling, and redness of the left foot. She reports a chronic diabetic foot ulcer to the plantar aspect of the left great toe ongoing for the past month or so. She states she has been doctoring at home and it was getting smaller. She states she worked all day Wednesday and came home from work and noticed that her foot was very painful. When she took off her shoe, was red and swollen and hot to touch. Upon arrival to the ER, the patient is afebrile. She was tachycardic, but was otherwise hemodynamically stable. Her white blood cell count was normal. Kidney function was normal. Her A1c was 7.8%. She had a left foot x-ray that showed findings consistent with osteomyelitis of the left great toe. A swab culture of the wound was obtained. She was started empirically on Vanco and cefepime and admitted to the hospital for further evaluation. Since admission, the patient has remained afebrile hemodynamically stable. Tachycardia has resolved. She did have a left foot MRI that showed osteo- myelitis of the first distal phalanx and osteitis versus early osteomyelitis of the first proximal phalanx. Prior treatment consulted. We are awaiting their recommendations. She is currently on Vanco and cefepime. We have been asked to evaluate and make further recommendations. During my exam today, the patient endorses a history as stated above. She denies any fevers or chills or rigors. She denies any headache or neck pain. She denies any congestion, earache, or sore throat. She denies any chest pain, shortness of breath, or cough. She denies any nausea, vomiting, diarrhea, constipation. She denies abdominal pain or urinary complaints. She states her appetite is good. She states she has been unable to afford her insulin or so she has not had any diabetes treatment for the past 4 months. She states she does not check her blood sugars at home. She denies any oral thrush or skin rashes. She does not know the cause of ulceration to her left foot. The patient lives at home with her boyfriend. 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 She smokes about half pack of cigarettes per day. She denies any alcohol or illicit drug use. She denies recent travel outside the [facility]. She denies any chronic infectious diseases. During my evaluation of the patient, she became tearful and angry when I advised her that she may need several weeks of IV antibiotics. She reported concern that if she is unable to work then she will lose everything. I offered support and to have social media marketing analyst talk to her about potential resources, but the patient was angry and said she did not want to talk about it right now. CC: Eva Cavazos MD Past Med Surg Social Fam HX - Past Medical History Attestation: Yes The following information was validated with the patient. Source: patient, old records reviewed, nursing notes reviewed Medical history: COPD, diabetes, other (No history of ulcer disease) Psychiatric history: no psych history - Past Surgical History Surgical History: , orthopedic, other (Left Achilles tendon rupture with repair) Additional surgical history: right knee and left ankle - Social History Smoking Status: Current every day smoker Packs per day: 0.5 Smokeless Tobacco Status: No Alcohol use: none Drug use: none Occupational status: employed Activity Level: Independent ambulation Recent Out of Country Travel Within the Last 8 Weeks: No Exposure or Possible Exposure to Illness During Travel: No - Family History Father Living Status: Hx Family Cardiac Disorders: (hypertension) Daughter Adopted: No Hx Family Cardiac Disorders: Yes (hypertension) Infectious Disease-CN:Meds HYDROcodone/Acet 7.5/325 mg [[place] 7.5-325 mg] 1 tab PO BID 11/29/17 [History] 3 Allergy/AdvReac Type Severity Reaction Status Date / Time nabumetone [From Relafen] AdvReac Dizziness Verified 11/29/17 17:09 All systems: reviewed and no additional remarkable complaints except as stated Exam - Constitutional Vitals: Temp Pulse Resp BP Pulse Ox 97.4 F L 68 18 117/76 96 11/30/17 11:25 11/30/17 11:25 11/30/17 11:25 11/30/17 11:25 11/30/17 11:25 General appearance: cooperative, no acute distress, obese - Head Head exam: Present: atraumatic, normal inspection, normocephalic - Eye Eye exam: Present: EOMI, normal appearance, PERRL Pupils: Present: normal accommodation - ENT ENT exam: Present: mucous membranes moist - Neck Neck exam: Present: normal inspection - Respiratory Respiratory exam: Present: CTAB. Absent: rales, respiratory distress, rhonchi, wheezes - Cardiovascular Cardiovascular exam: Present: RRR, +S1, +S2 - GI/Abdominal GI/Abdominal exam: Present: distended (obese), normal bowel sounds, soft. Absent: tenderness - Extremities Exam Extremities exam: Present: joint swelling (left 1st MTPJ), pedal edema (1+ LLE) , tenderness (left foot) Additional comments: Grade 2 ulceration noted to the distal/plantar aspect of the left great toe with erythema and edema noted. Serosanguinous drainage noted. Erythema noted to the left forefoot with tenderness and warmth noted on palpation. No fluctuance noted. - Neurological Exam Neurological exam: Present: alert, oriented X3, no focal deficits - Psychiatric Psychiatric exam: Present: agitated, anxious (tearful) - Skin Skin exam: Present: dry, intact, normal color, warm Infectious Disease CN: Results - Labs CBC & Chem 7: 12/01/17 04:26 12/01/17 04:26 Consult Discharge Plan - Plan Referrals: Ramone Cee DO [Primary Care Provider] - - Attending Attestation I examined this patient and my medical decision-making was reviewed with the Resident Physician. I agree with the documented findings, disposition and treatment plan as described except to the extent set forth below. Patient is a 61-year-old woman with past medical history mentioned below including diabetes mellitus type 2, COPD, tobacco abuse who tells me she is not taking anything for her diabetes presented with left great toe swelling and erythema. Patient apparently tells me that about 2 months ago she had an ulcer on the bottom of her toe and she thinks it was work-related. I asked her if she had any trauma or if anything fell on it or if anything that it and she stated that she does not know how the ulcer came about. Patient states that she was fine until Wednesday when she was at work 12-12 hour shifts and then she had the erythema and edema and pain in her left leg. No associated fevers and chills. Patient came here and was evaluated and was noted to have mild leukocytosis. Rest of her vital signs were fine. MRI showed osteomyelitis of the distal phalanx. Patient was started on broad-spectrum antibiotics including vancomycin and cefepime yesterday. Assessment and plan Left foot osteomyelitis noted on MRI. Causative organism not clear. No associated sepsis. Diabetic ulcer of the foot present for at least 2 months. Patient tells me she has been putting Neosporin and Band-Aid on it. Diabetes mellitus type 2 with an A1c of 7.8%. Patient is not taking any medications because she tells me she cannot afford it. COPD. Patients is currently having significant wheezing. The benefits of from a nebulizer treatment. Recommendations: Hold antibiotics until evaluated by surgery. If patient shows any signs of sepsis or starting having fever we will get blood cultures 2 and restart antibiotics. In the meantime if she is stable we will continue just to watch. Once Intra-Op cultures have been obtained and we will start empiric vancomycin and cefepime and Flagyl. Monitor labs and for drug toxicity.
[2017-11-30] MEDS: Nicotine 21 MG PATCH.TD24 TD SCH (12:45)
--- NOTE | 2017-11-30 12:50 | Internal Med Progress Note ---
Hospitalist Progress Note - Encounter Date of Encounter: 11/30/17 Time of Encounter: 12:47 - Subjective Interval History: Seen and examined at bedside. Patient is new to me, information obtained from chart review and patient report. She is complaining of pain to left foot/great toe. Unchanged from presentation. She voiced concern over possibly missing work due to likely surgery with possible nonweightbearing status and need for IV ATB. Verbal reassurance provided but patient remained upset at time of exam - Exam Vitals: Temp Pulse Resp BP Pulse Ox 97.4 F L 68 18 117/76 96 11/30/17 11:25 11/30/17 11:25 11/30/17 11:25 11/30/17 11:25 11/30/17 11:25 Exam: General appearance: Present: cooperative, A&O X 3, morbidly obese, no acute distress, answers questions appropriately Exam: See below. - Head Head exam: Absent: atraumatic, normocephalic - Eye Eye exam: Present: EOMI, PERRL. Absent: conjunctival injection, nystagmus, scleral icterus - ENT ENT exam: Present: mucous membranes moist, normal external ear exam, normal oropharynx - Neck Neck exam general surgery: Present: supple, trachea midline. Absent: lymphadenopathy, tenderness, thyromegaly - Respiratory Respiratory exam: Present: CTAB. Absent: accessory muscle use, rales, rhonchi, wheezes Additional comments: Normal WOB - Cardiovascular Cardiovascular exam: Present: RRR, +S1, +S2. Absent: diastolic murmur, gallop, rubs, systolic murmur Additional comments: No BLE edema except left great toe - GI/Abdominal GI/Abdominal exam: Present: normal bowel sounds, soft. Absent: distended, hepatomegaly, mass, splenomegaly, tenderness - Extremities Exam Additional comments: Ulceration on the distal aspect of left great toe with mild erythema, moderate edema, surrounding induration, and mild TTP - Neurological Exam Neurological exam: Present: alert, CN II-XII intact, oriented X3, no focal deficits, strengths equal and symetr throughout. Absent: motor sensory deficit , facial droop, speech deficit - Psychiatric Psychiatric exam: Present: normal affect, normal mood. Absent: agitated, anxious, depressed - Skin Skin exam: Present: dry, erythema (Left great toe), warm. Absent: cyanosis, intact (Ulceration of left great toe) - Assessment and Plan (1) Foot osteomyelitis, left Current Visit: Yes Status: Acute Assessment and Plan: presented with worsening wound to left foot/Great toe that started 2 weeks prior to admission. MRI shows osteomyelitis with soft tissue ulceration and underlying fluid-filled sinus tract. Received IV vanco and cefepime in ED (ATBs stopped per ID at this time). ID following. Podiatry consulted (2) Diabetic ulcer of foot, limited to breakdown of skin Current Visit: Yes Status: Acute Assessment and Plan: plan as noted above (3) Diabetes Current Visit: Yes Status: Chronic Assessment and Plan: per hx. Hgb A1c 7.8%. Not on treatment at home. Continue low-dose long-acting insulin. SSI. Monitor blood sugar and titrate PRN (4) COPD (chronic obstructive pulmonary disease) Current Visit: Yes Status: Chronic Assessment and Plan: per hx. no evidence of exacerbation. Continue PRN nebs (5) Obesity (BMI 30-39.9) Current Visit: Yes Status: Chronic Assessment and Plan: Counselled on lifestyle modifications. (6) Tobacco abuse Current Visit: Yes Status: Chronic Assessment and Plan: current smoker; cessation advised DVT Prophylaxis: lovenox - Time Spent with Patient Total time spent is greater than 50% in coordination of care (as documented) at patient's floor/unit and/or counseling patient: Internal Medicine: Result - Labs CBC & Chem 7: 11/29/17 19:56 11/30/17 02:10 Labs: Short CBC 11/29/17 Range/Units 19:56 WBC 9.8 (4.3-11.1) K/mcL Hgb 14.1 (11.5-15.4) g/dL Hct 41.2 (35.3-44.9) % Plt Count 204 (140-400) K/mcL Neutrophils # 6.7 (1.6-8.9) K/mcL BMP 11/30/17 02:10 Sodium 132 L Potassium 3.8 Chloride 103 Carbon Dioxide 22 L BUN 18 Creatinine 0.76 Glucose 255 H Calcium 8.8 Consult Discharge Plan - Plan Referrals: Ramone Cee, [Primary Care Provider] - (1) Foot osteomyelitis, left Qualifiers: Osteomyelitis type: unspecified type Qualified Code(s): M86.9 - Osteomyelitis , unspecified (2) Diabetic ulcer of foot, limited to breakdown of skin Qualifiers: Diabetic foot ulcer location: toe Diabetes mellitus type: type 2 Laterality : left Qualified Code(s): E11.621 - Type 2 diabetes mellitus with foot ulcer; L97.521 - Non-pressure chronic ulcer of other part of left foot limited to breakdown of skin (3) Diabetes Qualifiers: Diabetes mellitus type: type 2 Diabetes mellitus nursing home insulin use: without musical instrument maker or repairer use Diabetes mellitus complication status: with skin complications Diabetes mellitus complication detail: with foot ulcer Qualified Code(s): E11.621 - Type 2 diabetes mellitus with foot ulcer; L97.509 - Non-pressure chronic ulcer of other part of unspecified foot with unspecified severity (4) COPD (chronic obstructive pulmonary disease) Qualifiers: COPD type: unspecified COPD Qualified Code(s): J44.9 - Chronic obstructive pulmonary disease, unspecified
--- NOTE | 2017-11-30 15:05 | Podiatry Consult Note ---
Date of Encounter: 11/30/17 Time of Encounter: 12:30 Assessment and Plan (1) Osteomyelitis Current visit: Yes Status: Acute Full thickness ulceration to the distal aspect of the left great toe with positive probe to bone. WBC: 9.8 ESR: 49 A1C: 7.8 Xray of left foot completed on 11/29/17: finding compatible with osteomyelitis of the left great toe. MRI of left foot completed on 11/29/17: 1. Osteomyelitis throughout the 1st distal phalanx appear 2. Mild bone marrow edema with normal T1 signal in the head of the 1st proximal phalanx compatible with noninfectious reactive osteitis versus early osteomyelitis versus mild degenerative changes. 3. Soft tissue ulceration plantar to the 1st distal phalanx with an underlying fluid-filled sinus tract. 4. 1st toe and dorsal forefoot subcutaneous edema compatible with cellulitis. Plan: Dr. Samuels to plan for surgery tomorrow for left hallux amputation. NPO after midnight. Antibiotics per ID and currently being held until Intraop cultures obtained. Will continue to follow patient closely. Qualifiers: Osteomyelitis type: other acute Osteomyelitis location: foot Laterality: left Qualified Code(s): M86.172 - Other acute osteomyelitis, left ankle and foot (2) Diabetic ulcer of foot, limited to breakdown of skin Current visit: Yes Status: Acute Qualifiers: Diabetic foot ulcer location: toe Diabetes mellitus type: type 2 Laterality: left Qualified Code(s): E11.621 - Type 2 diabetes mellitus with foot ulcer; L97.521 - Non-pressure chronic ulcer of other part of left foot limited to breakdown of skin (3) Type II diabetes mellitus Current visit: Yes Status: Acute Qualifiers: Diabetes mellitus correction insulin use: with correction use Diabetes mellitus complication status: with unspecified complications Qualified Code(s) : E11.8 - Type 2 diabetes mellitus with unspecified complications; 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 Cuadra is a 61 year old female admitted to [facility] for left foot pain. Patient has a medical history significant for COPD and diabetes. Podiatry was consulted for an ulceration to the distal aspect of the left great toe. Patient states 2 months ago she noticed pain to the left great toe. Patient denies any injury or trauma. Patient does have numbness and tingling in her feet. 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 Patient states the redness was streaking down the top of her foot. Patient states she worked a 4 hours shift yesterday with increased swelling to the left great toe and then came to the ER. Patient states she smokes approximately a 1/2 ppd of cigarettes with a 15 year history. Patient has a surgical history of an achilles tendon surgery by Dr. Amaral 3 years ago. Patient denies any fever, chills, cp, sob, or flu like symptoms. Patient states she does not have diabetic shoes. Past Med Surg Social Fam HX - Past Medical History Medical history: COPD, diabetes, other (No history of ulcer disease) Psychiatric history: no psych history - Past Surgical History Surgical History: , orthopedic, other (Left Achilles tendon rupture with repair) Additional surgical history: right knee and left ankle - Social History Smoking Status: Current every day smoker Packs per day: 0.5 Smokeless Tobacco Status: No Alcohol use: none Drug use: none - Family History Father Living Status: Hx Family Cardiac Disorders: (hypertension) Daughter Adopted: No Hx Family Cardiac Disorders: Yes (hypertension) Medications and Allergies HYDROcodone/Acet 7.5/325 mg [[place] 7.5-325 mg] 1 tab PO BID 11/29/17 [History] 3 Allergy/AdvReac Type Severity Reaction Status Date / Time nabumetone [From Relafen] AdvReac Dizziness Verified 11/29/17 17:09 All Systems Reviewed: Fever: denies, Chills: denies, Numbness: admits, Tingling: admits. Diabetes: admits Physical Exam - Constitutional Vitals: Temp Pulse Resp BP Pulse Ox 97.4 F L 68 18 117/76 96 11/30/17 11:25 11/30/17 11:25 11/30/17 11:25 11/30/17 11:25 11/30/17 11:25 General appearance: cooperative, no acute distress, obese Exam: General appearance: alert awake oriented X 3. Calm and pleasant, no acute distress.. Vascular: Pedal pulses +1/4 DP/PT , No evidence of cyanosis, pallor or rubor, Edema graded at 1+/4, Skin Temperature warm, No calf pain with manual compression. capillary refill time is immediate to digits. Neurologic: Sensation intact with light touch to left foot. . Integument: Left great toe is bulbous and erythematous, open ulceration to the distal aspect measuring 0.7 cm in diameter x 1 cm in depth, positive probe to bone, malodorous, no pus, peeling skin to the dorsal lateral aspect. No streaking, no lymphangitis. Small amount of bloody drainage observed to sock. - Vascular Capillary Refill: less than 3 seconds Results - Labs Result Diagrams: 11/29/17 19:56 11/30/17 02:10 Labs: Abnormal lab results ESR 49 mm/hr (0-15) H 11/29/17 16:51 Sodium 132 mEq/L (136-145) L 11/30/17 02:10 Carbon Dioxide 22 mEq/L (23-29) L 11/30/17 02:10 Glucose 255 mg/dL (70-105) H 11/30/17 02:10 POC Glucose 207 mg/dL (70-99) H 11/29/17 20:05 Hemoglobin A1c 7.8 % (-5.6) H 11/29/17 19:56 Triglycerides 367 mg/dL (< 150) H 11/29/17 19:56 VLDL Cholesterol, Calc 73 mg/dL (< 31) H 11/29/17 19:56 HDL Cholesterol 27 mg/dL (40-59) L 11/29/17 19:56 Cholesterol/HDL Ratio 6.9 (0-4.9) H 11/29/17 19:56 Vancomycin Trough 12 mcg/mL (5-10) H 11/30/17 02:10 H & H 11/29/17 Range/Units 19:56 Hgb 14.1 (11.5-15.4) g/dL Hct 41.2 (35.3-44.9) % All other labs normal. Consult Discharge Plan - Plan Referrals: Ramone Cee DO [Primary Care Provider] -
[2017-12-01 05:00] LABS: Hematocrit 36.4 % (35.3-44.9); Hemoglobin 12.4 g/dL (11.5-15.4); Mean Corpuscular HGB Conc 34.1 g/dL (31.6-35.5); Mean Corpuscular Hemoglobin 29.1 pg (28.0-33.3); Mean Corpuscular Volume 85.4 fL (83.0-100.0); Mean Platelet Volume 11.2 fL (9.4-12.4); Platelet Count 165 K/mcL (140-400); Red Blood Count 4.26 M/mcL (3.82-4.97); Red Cell Distribution Width 12.5 % (11.5-14.5)
[2017-12-01 05:15] LABS: BUN/Creatinine Ratio 32 (6-26); Blood Urea Nitrogen 20 mg/dL (8-23); Calcium 8.6 mg/dL (8.6-10.3); Carbon Dioxide 25 mEq/L (23-29); Chloride 104 mEq/L (98-107); Glucose 220 mg/dL (70-105); Osmolality,Calculated 287 (280-300); Potassium 4.1 mEq/L (3.5-5.1); Sodium 134 mEq/L (136-145); eGFR For Non-African Americans > 60 (> 60)
[2017-12-01] MEDS: *HR* Enoxaparin 40 MG/0.4 ML SYRINGE SQ SCH (05:18)
[2017-12-01] MEDS: Insulin LISPRO 300 UNITS/3 ML VIAL SQ SCH ×4 (07:57→19:36)
[2017-12-01] MEDS ORDERED: Insulin DETEMIR 100 UNIT/ML X5UNITS SQ SCH (09:00)
--- NOTE | 2017-12-01 12:11 | Infectious Disease Progress No ---
Date of Encounter: 12/01/17 Time of Encounter: 12:09 - Assessment and Plan (1) Foot osteomyelitis, left Current Visit: Yes Status: Acute Location: Left great toe. Causative organism: Unclear. Swab culture obtained and pending. Likely secondary to non-healing DFU. X-ray of the left foot showed findings consistent with OM of the left great toe. MRI showed findings consistent with OM of the distal phalanx and possible OM vs. reactive osteitis of the proximal phalanx of the great toe. Podiatry consulted. Await recommendations. The patient has some mild leukocytosis on admission, but otherwise has no SIRS criteria and does not appear toxic. Check ESR and CRP post-op in the AM. Recommend holding further antibiotics until appropriate intra-op cultures can be obtained. Re-start Vancomycin IV, pharmacy to dose, and Cefepime 2 grams IV Q12H post-op. Await cultures and de-escalate antibiotics if/when able. Duration of treatment depends on the clinical picture, but likely a total of 6 weeks of IV antibiotics. Monitor renal function and for drug toxicity and dose-adjust antibiotics. Consult VAT prior to discharge once final antibiotic regimen has been determined. student services counselor consult to assist with discharge planning. Further OPAT recommendations to follow from the ID team pending culture results and clinical outcomes. Qualifiers: Osteomyelitis type: unspecified type Qualified Code(s): M86.9 - Osteomyelitis, unspecified (2) Diabetic ulcer of foot, limited to breakdown of skin Current Visit: Yes Status: Acute Location: Plantar aspect of the left great toe. Etiology unclear. Patient denies known trauma. Podiatry consulted. Antibiotic recommendations as above. Qualifiers: Diabetic foot ulcer location: toe Diabetes mellitus type: type 2 Laterality: left Qualified Code(s): E11.621 - Type 2 diabetes mellitus with foot ulcer; L97.521 - Non-pressure chronic ulcer of other part of left foot limited to breakdown of skin (3) Type II diabetes mellitus Current Visit: Yes Status: Acute Hgb A1C 7.8%. Recommend aggressive glucose monitoring and control to promote wound healing and prevent re-infection. Management per the primary team. student services counselor to assist with the patient's medication costs on discharge. Qualifiers: Diabetes mellitus alf insulin use: with fourth officer use Diabetes mellitus complication status: with unspecified complications Qualified Code(s) : E11.8 - Type 2 diabetes mellitus with unspecified complications; Z79.4 - senior care (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 (4) COPD (chronic obstructive pulmonary disease) Current Visit: Yes Status: Chronic Qualifiers: COPD type: unspecified COPD Qualified Code(s): J44.9 - Chronic obstructive pulmonary disease, unspecified (5) Obesity (BMI 30-39.9) Current Visit: Yes Status: Chronic (6) Tobacco abuse Current Visit: Yes Status: Chronic - Subjective Interval history: Patient seen and examined. No acute events noted overnight. Patient states overall she feels okay. Denies fevers, chills, or rigors. Denies chest pain, shortness of breath, or cough. Denies nausea, vomiting, or diarrhea. Denies abdominal pain, urinary complaints, or appetite changes. Denies oral thrush or skin lesions. Reports no pain in her feet. States the swelling and redness are improved. Infect Dis PN-Objective Data - Labs CBC & Chem 7: 12/02/17 05:49 12/02/17 05:49 Labs: Laboratory Results - last 24 hr 11/30/17 11/30/17 11/30/17 07:24 11:10 16:37 WBC RBC Hgb Hct MCV MCH MCHC RDW Plt Count MPV Sodium Potassium Chloride Carbon Dioxide BUN Creatinine Est GFR ( Amer) Est GFR (Non-Af Amer) BUN/Creatinine Ratio Glucose POC Glucose 193 H 232 H 172 H Calculated Osmolality Calcium 11/30/17 12/01/17 12/01/17 20:10 04:26 04:26 WBC 6.2 RBC 4.26 Hgb 12.4 D Hct 36.4 MCV 85.4 MCH 29.1 MCHC 34.1 RDW 12.5 Plt Count 165 MPV 11.2 Sodium 134 L Potassium 4.1 Chloride 104 Carbon Dioxide 25 BUN 20 Creatinine 0.63 Est GFR ( Amer) > 60 Est GFR (Non-Af Amer) > 60 BUN/Creatinine Ratio 32 H Glucose 220 H POC Glucose 235 H Calculated Osmolality 287 Calcium 8.6 12/01/17 07:30 WBC RBC Hgb Hct MCV MCH MCHC RDW Plt Count MPV Sodium Potassium Chloride Carbon Dioxide BUN Creatinine Est GFR ( Amer) Est GFR (Non-Af Amer) BUN/Creatinine Ratio Glucose POC Glucose 274 H Calculated Osmolality Calcium Exam - Constitutional Vitals: Temp Pulse Resp BP Pulse Ox 97.9 F 60 18 143/85 99 12/01/17 10:45 12/01/17 10:45 12/01/17 10:45 12/01/17 10:45 12/01/17 10:45 General appearance: cooperative, no acute distress, obese - Head Head exam: Present: atraumatic, normal inspection, normocephalic - Eye Eye exam: Present: EOMI, normal appearance, PERRL Pupils: Present: normal accommodation - ENT ENT exam: Present: mucous membranes moist - Neck Neck exam: Present: normal inspection - Respiratory Respiratory exam: Present: CTAB. Absent: rales, respiratory distress, rhonchi, wheezes - Cardiovascular Cardiovascular exam: Present: RRR, +S1, +S2 - GI/Abdominal GI/Abdominal exam: Present: normal bowel sounds, soft. Absent: distended, tenderness - Extremities Exam Extremities exam: Present: normal inspection, pedal edema (Trace left foot). Absent: joint swelling, tenderness Additional comments: Left great toe dressing intact with minimal surrounding erythema. - Neurological Exam Neurological exam: Present: alert, oriented X3, no focal deficits - Psychiatric Psychiatric exam: Present: normal affect, normal mood - Skin Skin exam: Present: dry, intact, normal color, warm - VTE Documentation of Mechanical Device: Intermittent pneumatic compression device Consult Discharge Plan - Plan Referrals: Ramone Cee DO [Primary Care Provider] - - Attending Attestation I examined this patient and my medical decision-making was reviewed with Akiko Sahu CNP. I agree with the documented findings, disposition and treatment plan as described except to the extent set forth below.
[2017-12-01] MEDS: Nicotine 21 MG PATCH.TD24 TD SCH (12:14)
[2017-12-01] MEDS: 0.9 % Sodium Chloride 1,000 ML IVC SCH ×2 (12:23→16:02)
[2017-12-01] MEDS ORDERED: Lidocaine 1% 20 ML MDV ONE (14:26)
[2017-12-01] MEDS ORDERED: Lidocaine -MPF 2% 2 ML VIAL ONE (14:30)
[2017-12-01] MEDS ORDERED: Propofol 500 MG/50 ML INFUS..BTL ONE (14:31)
[2017-12-01] MEDS ORDERED: *HR* Midazolam HCl 2 MG/2 ML VIAL ONE (14:34)
--- NOTE | 2017-12-01 14:43 | Anesthesia Evaluation PreOp ---
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 Non-compliant.) Anesthesia History: No Prior Anesthetic Complications : No Alcohol Use: none Drug use: none Medications and Allergies HYDROcodone/Acet 7.5/325 mg [[place] 7.5-325 mg] 1 tab PO BID 11/29/17 [History] 3 Allergy/AdvReac Type Severity Reaction Status Date / Time nabumetone [From Relafen] AdvReac Dizziness Verified 11/29/17 17:09 - Meds/Allergy Pre-op Review Medications Reviewed: Yes Allergies Reviewed: Yes Beta Blockers on Current Med List: No Anesthesia Results - Labs 12/01/17 04:26 12/01/17 04:26 Anesthesia Exam Vital Signs/O2 Sat/Glucose, Most Recent Temp Pulse Resp BP Pulse Ox 97.9 F 60 18 143/85 99 12/01/17 10:45 12/01/17 10:45 12/01/17 10:45 12/01/17 10:45 12/01/17 10:45 Blood Glucose* 128 Blood glucose: 220 Weight: 95 NPO (# of Hours): >8 Pain Scale: 0 Pain Scale Used: Numeric (1 - 10) - HEENT Mallampati: II Teeth: Normal Oral Opening: Greater than 3 - 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
--- NOTE | 2017-12-01 15:01 | Internal Med Progress Note ---
Hospitalist Progress Note - Encounter Date of Encounter: 12/01/17 Time of Encounter: 10:30 - Subjective Interval History: Seen and examined at bedside; sitting up in bed. Says she feels about the same. Has some pain to wound to left foot otherwise no new complaints. She actually appears to be in better spirits today after being told by podiatry that she will likely be able to resume work and be placed in a walking boot postop. OR planned for this afternoon. - Exam Vitals: Temp Pulse Resp BP Pulse Ox 97.9 F 60 18 143/85 99 12/01/17 10:45 12/01/17 10:45 12/01/17 10:45 12/01/17 10:45 12/01/17 10:45 Exam: General appearance: Present: cooperative, A&O X 3, morbidly obese, no acute distress, answers questions appropriately Exam: See below. - Head Head exam: Absent: atraumatic, normocephalic - Eye Eye exam: Present: EOMI, PERRL. Absent: conjunctival injection, nystagmus, scleral icterus - ENT ENT exam: Present: mucous membranes moist, normal external ear exam, normal oropharynx - Neck Neck exam general surgery: Present: supple, trachea midline. Absent: lymphadenopathy, tenderness, thyromegaly - Respiratory Respiratory exam: Present: CTAB. Absent: accessory muscle use, rales, rhonchi, wheezes Additional comments: Normal WOB - Cardiovascular Cardiovascular exam: Present: RRR, +S1, +S2. Absent: diastolic murmur, gallop, rubs, systolic murmur Additional comments: No BLE edema except left great toe - GI/Abdominal GI/Abdominal exam: Present: normal bowel sounds, soft. Absent: distended, hepatomegaly, mass, splenomegaly, tenderness - Extremities Exam Additional comments: Ulceration on the distal aspect of left great toe with mild erythema, moderate edema, surrounding induration, and mild TTP - Neurological Exam Neurological exam: Present: alert, CN II-XII intact, oriented X3, no focal deficits, strengths equal and symetr throughout. Absent: motor sensory deficit , facial droop, speech deficit - Psychiatric Psychiatric exam: Present: normal affect, normal mood. Absent: agitated, anxious, depressed - Skin Skin exam: Present: dry, erythema (Left great toe), warm. Absent: cyanosis, intact (Ulceration of left great toe) - Assessment and Plan (1) Foot osteomyelitis, left Current Visit: Yes Status: Acute Assessment and Plan: presented with worsening wound to left foot/Great toe that started 2 weeks prior to admission. MRI shows osteomyelitis with soft tissue ulceration and underlying fluid-filled sinus tract. Most likely secondary to diabetic foot ulcer. Cont IV vanco and cefepime. OR planned afternoon of 12/01. Follow wound cultures and narrow ATB accordingly. ID and podiatry following. (2) Diabetic ulcer of foot, limited to breakdown of skin Current Visit: Yes Status: Acute Assessment and Plan: plan as noted above (3) Diabetes Current Visit: Yes Status: Chronic Assessment and Plan: per hx. Hgb A1c 7.8%. Not on treatment at home. Continue long-acting insulin ( increased to 15 units on 12/01). SSI. Monitor blood sugar and titrate PRN (4) COPD (chronic obstructive pulmonary disease) Current Visit: Yes Status: Chronic Assessment and Plan: per hx. no evidence of exacerbation. Continue PRN nebs (5) Obesity (BMI 30-39.9) Current Visit: Yes Status: Chronic Assessment and Plan: Counselled on lifestyle modifications. (6) Tobacco abuse Current Visit: Yes Status: Chronic Assessment and Plan: current smoker; cessation advised DVT Prophylaxis: lovenox - Time Spent with Patient Total time spent is greater than 50% in coordination of care (as documented) at patient's floor/unit and/or counseling patient: Internal Medicine: Result - Labs CBC & Chem 7: 12/01/17 04:26 12/01/17 04:26 Labs: Short CBC 12/01/17 Range/Units 04:26 WBC 6.2 (4.3-11.1) K/mcL Hgb 12.4 D (11.5-15.4) g/dL Hct 36.4 (35.3-44.9) % Plt Count 165 (140-400) K/mcL BMP 12/01/17 04:26 Sodium 134 L Potassium 4.1 Chloride 104 Carbon Dioxide 25 BUN 20 Creatinine 0.63 Glucose 220 H Calcium 8.6 - VTE Documentation of Mechanical Device: Intermittent pneumatic compression device Consult Discharge Plan - Plan Referrals: Ramone Cee DO [Primary Care Provider] - (1) Foot osteomyelitis, left Qualifiers: Osteomyelitis type: unspecified type Qualified Code(s): M86.9 - Osteomyelitis , unspecified (2) Diabetic ulcer of foot, limited to breakdown of skin Qualifiers: Diabetic foot ulcer location: toe Diabetes mellitus type: type 2 Laterality : left Qualified Code(s): E11.621 - Type 2 diabetes mellitus with foot ulcer; L97.521 - Non-pressure chronic ulcer of other part of left foot limited to breakdown of skin (3) Diabetes Qualifiers: Diabetes mellitus type: type 2 Diabetes mellitus usp insulin use: without usp use Diabetes mellitus complication status: with skin complications Diabetes mellitus complication detail: with foot ulcer Qualified Code(s): E11.621 - Type 2 diabetes mellitus with foot ulcer; L97.509 - Non-pressure chronic ulcer of other part of unspecified foot with unspecified severity (4) COPD (chronic obstructive pulmonary disease) Qualifiers: COPD type: unspecified COPD Qualified Code(s): J44.9 - Chronic obstructive pulmonary disease, unspecified
[2017-12-01] MEDS ORDERED: *HR* Propofol 200 MG/20 ML VIAL IVP ONE (15:15)
--- NOTE | 2017-12-01 15:40 | Operative Note ---
Date of procedure: 12/01/17 Pre-op diagnosis: left foot hallux osteomyelitis Post-op diagnosis: same Procedure: left hallux ampuation Implants: none Complications: none Anesthesia: MAC Local Anesthetics: 1% Lidocaine HCL SubQ (cc) Surgeon: John Samuels Was there an front end assistant present: No Estimated blood loss (cc): 20 Specimen: pathology-left toe bone, bone clear margin, micro-L hallux ulcer, bone Condition: stable Disposition: PACU Procedure in Detail: Indications: 61 year old diabetic female with osteomyelitis of the left big toe distal phalanx on MRI and with wound at the tuft of the left hallux undergoing ampuation of the left hallux after having the nature of the procedure discussed at length and treatment options. We discussed the risks versus benefits of surgery potential complications and consequences of surgery. No guarantees were made as to the outcome of any procedure. She understood that she is high risk for partial foot/limb loss. Informed consent was obtained. Patient had been seen by infectious disease and antibiotics have been held until after the surgery. The patient was taken from the preoperative holding area into the operating room placed on the operating room table in the supine position. No tourniquet was applied. The left lower extremity was scrubbed prepped and draped in the usual sterile fashion 1% lidocaine plain was injected into the patient's left foot. The following procedures then began. Left hallux amputation. Attention was directed to the distal aspect of the left hallux where ulceration was present. This ulceration was excised and sent to microbiology. There were chunks of crumbly bone in the wound which were in direct extension with the ulceration and that this bone was also sent to microbiology. Next a fishmouth type incision was made over the hallux and the distal phalanx was disarticulated and distal end of the hallux amputated. This toe and bone was sent to pathology. No purulence was encountered the devitalized tissue present was predominantly surrounding the distal phalanx. The proximal phalanx head did exhibit some eroded cartilage and the sagittal saw was used to resect a portion of the the proximal phalanx and it was sent for clear margin to pathology. No devitalized tissue was present surrounding the bone remaining. The site was flushed with saline. Upon reinspection no devitalized tissue was found and there was no purulence. The site was deemed adequate for closure and using 0 Prolene and 3-0 Prolene the surgical site was closed. The patient tolerated the anesthesia and the procedure well. Adequate hemostasis was present during the procedure. Postoperative bandaging included Adaptic, 4 x 4 gauze Kerlix and an Milind wrap. Patient will be started on antibiotics vancomycin and cefepime. Patient will return to the floor.
[2017-12-01] MEDS ORDERED: Gadolinium Contrast Agent (WT Based) IV PRN (15:57)
[2017-12-01] MEDS ORDERED: *HR* Dextrose 50 % in Water (Syg) 50 ML SYRINGE IVP PRN (15:57)
[2017-12-01] MEDS ORDERED: Naloxone 0.4 MG/ML INJ IVP PRN (15:57)
[2017-12-01] MEDS ORDERED: D5% in Water 1,000 ML IVC PRN (15:57)
[2017-12-01] MEDS ORDERED: Acetaminophen 325 MG TABLET PO PRN (15:57)
[2017-12-01] MEDS ORDERED: Albuterol 2.5 MG/3 ML NEBULIZER IH PRN (15:57)
[2017-12-01] MEDS ORDERED: Dextrose Gel 15 GM/37.5 ML TUBE PO PRN ×2 (15:57)
[2017-12-01] MEDS ORDERED: *HR* HYDROcodone/Acet 5/325 mg TABLET PO PRN (15:57)
[2017-12-01] MEDS ORDERED: *HR* OxyCODONE Immed Rel 5 MG TABLET PO PRN (15:57)
[2017-12-01] MEDS: Cefepime HCl 2,000 MG in Water for inj. (sterile) 20 ML 20 ML IVP SCH (17:32)
[2017-12-01] MEDS ORDERED: Cefepime HCl 1,000 MG in Water for inj. (sterile) 20 ML 10 ML IVP SCH (18:00)
[2017-12-01] MEDS ORDERED: Cefepime HCl 2,000 MG in Water for inj. (sterile) 20 ML 20 ML IVP SCH (18:00)
[2017-12-02] MEDS: 0.9 % Sodium Chloride 1,000 ML IVC SCH ×2 (01:30→12:57)
[2017-12-02] MEDS: *HR* Enoxaparin 40 MG/0.4 ML SYRINGE SQ SCH (06:40)
[2017-12-02] MEDS: Cefepime HCl 2,000 MG in Water for inj. (sterile) 20 ML 20 ML IVP SCH ×2 (06:41→18:21)
[2017-12-02 06:48] LABS: Hematocrit 33.5 % (35.3-44.9); Hemoglobin 11.4 g/dL (11.5-15.4); Mean Corpuscular Hemoglobin 28.8 pg (28.0-33.3); Mean Corpuscular Volume 84.6 fL (83.0-100.0); Mean Platelet Volume 11.5 fL (9.4-12.4); Platelet Count 169 K/mcL (140-400); Red Blood Count 3.96 M/mcL (3.82-4.97); Red Cell Distribution Width 12.6 % (11.5-14.5)
[2017-12-02 07:03] LABS: BUN/Creatinine Ratio 22 (6-26); Blood Urea Nitrogen 14 mg/dL (8-23); Calcium 8.4 mg/dL (8.6-10.3); Carbon Dioxide 22 mEq/L (23-29); Chloride 109 mEq/L (98-107); Glucose 164 mg/dL (70-105); Osmolality,Calculated 286 (280-300); Potassium 4.4 mEq/L (3.5-5.1); Sodium 136 mEq/L (136-145); eGFR For Non-African Americans > 60 (> 60)
[2017-12-02] MEDS: Insulin DETEMIR 100 UNIT/ML X5UNITS SQ SCH (08:09)
[2017-12-02] MEDS: Insulin LISPRO 300 UNITS/3 ML VIAL SQ SCH ×4 (08:10→20:08)
[2017-12-02] MEDS ORDERED: Insulin DETEMIR 100 UNIT/ML X5UNITS SQ SCH (09:00)
[2017-12-02] MEDS: Nicotine 21 MG PATCH.TD24 TD SCH (12:02)
--- NOTE | 2017-12-02 13:37 | Podiatry Progress Note ---
Date of Encounter: 12/02/17 Time of Encounter: 12:20 - Assessment and Plan (1) Osteomyelitis Current Visit: Yes Status: Acute S/p left hallux amputation by Dr. Samuels on 12/01/17 for osteomyelitis. WBC: 6.1 ESR: 49 A1C: 7.8 Xray of left foot completed on 11/29/17: finding compatible with osteomyelitis of the left great toe. MRI of left foot completed on 11/29/17: 1. Osteomyelitis throughout the 1st distal phalanx appear 2. Mild bone marrow edema with normal T1 signal in the head of the 1st proximal phalanx compatible with noninfectious reactive osteitis versus early osteomyelitis versus mild degenerative changes. 3. Soft tissue ulceration plantar to the 1st distal phalanx with an underlying fluid-filled sinus tract. 4. 1st toe and dorsal forefoot subcutaneous edema compatible with cellulitis. Foot X-Ray 12/01/17 16:11 IMPRESSION: Status post amputation of the 1st digit at the level of the mid 1st proximal phalanx with expected postsurgical changes. Soft tissue swelling of the forefoot may represent postsurgical changes versus persistent soft tissue edema from cellulitis. D/ / 12/01/2017 17:51:29 Desmond Mary MD / shira Interpreting Provider: Desmond Mary MD Plan: -Will continue to follow patient closely. -Antibiotics per ID. -Dressing changed at bedside, incision line irrigated with saline, pat dry, adaptic applied with 4x4 dry sterile gauze and medipore tape. -Continue diabetic cast boot to LLE. -Follow up in Podiatry clinic one week after discharge from hospital. -Keep dressing dry and intact until follow up appointment. Qualifiers: Osteomyelitis type: other acute Osteomyelitis location: foot Laterality: left Qualified Code(s): M86.172 - Other acute osteomyelitis, left ankle and foot (2) Diabetic ulcer of foot, limited to breakdown of skin Current Visit: Yes Status: Acute Qualifiers: Diabetic foot ulcer location: toe Diabetes mellitus type: type 2 Laterality: left Qualified Code(s): E11.621 - Type 2 diabetes mellitus with foot ulcer; L97.521 - Non-pressure chronic ulcer of other part of left foot limited to breakdown of skin (3) Type II diabetes mellitus Current Visit: Yes Status: Acute Qualifiers: Diabetes mellitus assisted insulin use: with assisted use Diabetes mellitus complication status: with unspecified complications Qualified Code(s) : E11.8 - Type 2 diabetes mellitus with unspecified complications; Z79.4 - terminal block assembler (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 Subjective Interval history: Patient is sitting up in bed with diabetic cast boot on LLE. Dressing dry and intact. Patient is s/p left hallux amputation by Dr. Samuels on 12/01/17. Patient states she feels good today, denies pain, denies fever or chills. No n/ v. Objective - Vital Signs Vital Signs: Vital Signs Temp Pulse Resp BP Pulse Ox 12/02/17 11:46 97.9 F 76 16 153/87 99 12/02/17 06:49 97.6 F 72 15 156/83 96 12/02/17 04:55 97.6 F 66 14 148/78 97 12/01/17 23:15 98.1 F 71 16 158/89 95 12/01/17 19:24 98.1 F 70 16 145/83 97 12/01/17 15:53 97.6 F 75 18 134/74 98 Intake and Output 12/01/17 12/02/17 12/02/17 23:59 07:59 15:59 Intake Total 270 / 270 1360 / 1360 Output Total 600 / 600 625 / 625 Balance 270 / 270 -600 / -600 735 / 735 Intake: IV Fluids 270 / 270 1000 / 1000 0.9 % Sodium Chloride 1,000 ML 1000 / 1000 @ 100 mls/hr IVC .Q10H TRUE Rx#: [id number] Maxipime 2,000 MG In Water for 20 / 20 inj. (sterile) 20 ML @ 300 mls/ hr IVP Q12HR TRUE Rx#:[id number] Vancocin 1,500 MG In 0.9 % 250 / 250 Sodium Chloride 250 ML @ 166. 667 mls/hr IVPB Q12H TRUE Rx#: [id number] Oral 360 / 360 Output: Urine 600 / 600 625 / 625 Other: Meal Lunch Percent of Meal Consumed 100% Stool Size Moderate Stool Consistency formed Stool Color Brown # Voids 1 1 # Bowel Movements 1 Blood Glucose* 254 175 198 - Exam Exam: General appearance: alert awake oriented X 3. Calm and pleasant, no acute distress.. Vascular: Pedal pulses +1/4 DP/PT , No evidence of cyanosis, pallor or rubor, Edema graded at 1+/4, Skin Temperature warm, No calf pain with manual compression. capillary refill time is immediate to digits. Neurologic: Sensation intact with light touch to left foot. . S/p; sutures intact to incision line, well approximated, no signs of dehiscence. light periwound erythema, no streaking, no pus, no odor, no warmth. - Lab Result Diagrams: 12/02/17 05:49 12/02/17 05:49 Labs: Abnormal lab results Hgb 11.4 g/dL (11.5-15.4) L 12/02/17 05:49 Hct 33.5 % (35.3-44.9) L 12/02/17 05:49 ESR 49 mm/hr (0-15) H 11/29/17 16:51 Chloride 109 mEq/L (98-107) H 12/02/17 05:49 Carbon Dioxide 22 mEq/L (23-29) L 12/02/17 05:49 Glucose 164 mg/dL (70-105) H 12/02/17 05:49 POC Glucose 175 mg/dL (70-99) H 12/02/17 07:55 Hemoglobin A1c 7.8 % (-5.6) H 11/29/17 19:56 Calcium 8.4 mg/dL (8.6-10.3) L 12/02/17 05:49 Triglycerides 367 mg/dL (< 150) H 11/29/17 19:56 VLDL Cholesterol, Calc 73 mg/dL (< 31) H 11/29/17 19:56 HDL Cholesterol 27 mg/dL (40-59) L 11/29/17 19:56 Cholesterol/HDL Ratio 6.9 (0-4.9) H 11/29/17 19:56 Vancomycin Trough 12 mcg/mL (5-10) H 11/30/17 02:10 Microbiology, Last 48 Hours 12/01/17 15:57 Gram Stain - Final Left Great Toe 12/01/17 15:57 Gram Stain - Final Left Great Toe - VTE Documentation of Mechanical Device: Intermittent pneumatic compression device Consult Discharge Plan - Plan Referrals: Ramone Cee DO [Primary Care Provider] -
--- NOTE | 2017-12-02 13:47 | Infectious Disease Progress No ---
Date of Encounter: 12/02/17 Time of Encounter: 08:45 - Assessment and Plan (1) Foot osteomyelitis, left Current Visit: Yes Status: Acute Location: Left great toe. Causative organism: Unclear. Swab culture grew P. mirabilis, GCS, and GBS. Likely secondary to non-healing DFU. X-ray of the left foot showed findings consistent with OM of the left great toe. MRI showed findings consistent with OM of the distal phalanx and possible OM vs. reactive osteitis of the proximal phalanx of the great toe. Podiatry consulted. Status post amputation of the left hallux 12/01/[address] Samuels. The patient has some mild leukocytosis on admission, but otherwise has no SIRS criteria and does not appear toxic. Check ESR and CRP. Continue Vancomycin IV. Pharmacy to dose. Goal trough ~15 Continue Cefepime 2 grams IV Q12H. Start flagyl 500mg PO TID for anaerobic coverage. Await cultures and de-escalate antibiotics if/when able. Duration of treatment depends on the clinical picture, but likely a total of 6 weeks of IV antibiotics. Monitor renal function and for drug toxicity and dose-adjust antibiotics. Consult VAT prior to discharge once final antibiotic regimen has been determined. clinical services assistant consult to assist with discharge planning. Further OPAT recommendations to follow from the ID team pending culture results and clinical outcomes. Qualifiers: Osteomyelitis type: unspecified type Qualified Code(s): M86.9 - Osteomyelitis, unspecified (2) Diabetic ulcer of foot, limited to breakdown of skin Current Visit: Yes Status: Acute Location: Plantar aspect of the left great toe. Etiology unclear. Patient denies known trauma. Podiatry consulted. Antibiotic recommendations as above. Qualifiers: Diabetic foot ulcer location: toe Diabetes mellitus type: type 2 Laterality: left Qualified Code(s): E11.621 - Type 2 diabetes mellitus with foot ulcer; L97.521 - Non-pressure chronic ulcer of other part of left foot limited to breakdown of skin (3) Type II diabetes mellitus Current Visit: Yes Status: Acute Hgb A1C 7.8%. Recommend aggressive glucose monitoring and control to promote wound healing and prevent re-infection. Management per the primary team. clinical services assistant to assist with the patient's medication costs on discharge. Qualifiers: Diabetes mellitus retirement insulin use: with intermodal dispatcher use Diabetes mellitus complication status: with unspecified complications Qualified Code(s) : E11.8 - Type 2 diabetes mellitus with unspecified complications; Z79.4 - manager long term care (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 (4) COPD (chronic obstructive pulmonary disease) Current Visit: Yes Status: Chronic Qualifiers: COPD type: unspecified COPD Qualified Code(s): J44.9 - Chronic obstructive pulmonary disease, unspecified (5) Obesity (BMI 30-39.9) Current Visit: Yes Status: Chronic (6) Tobacco abuse Current Visit: Yes Status: Chronic - Subjective Interval history: Patient seen and examined. No acute events noted overnight. Patient states overall she feels okay. Denies fevers, chills, or rigors. Denies chest pain, shortness of breath, or cough. Denies nausea, vomiting, or diarrhea. Denies abdominal pain, urinary complaints, or appetite changes. Denies oral thrush or skin lesions. Reports no pain in her feet. Infect Dis PN-Objective Data - Labs CBC & Chem 7: 12/02/17 05:49 12/02/17 05:49 Labs: Laboratory Results - last 24 hr 12/01/17 12/01/17 12/01/17 10:48 15:59 19:28 WBC RBC Hgb Hct MCV MCH MCHC RDW Plt Count MPV Sodium Potassium Chloride Carbon Dioxide BUN Creatinine Est GFR ( Amer) Est GFR (Non-Af Amer) BUN/Creatinine Ratio Glucose POC Glucose 135 H 107 H 254 H Calculated Osmolality Calcium 12/02/17 12/02/17 12/02/17 05:49 05:49 07:55 WBC 6.1 RBC 3.96 Hgb 11.4 L Hct 33.5 L MCV 84.6 MCH 28.8 MCHC 34.0 RDW 12.6 Plt Count 169 MPV 11.5 Sodium 136 Potassium 4.4 Chloride 109 H Carbon Dioxide 22 L BUN 14 Creatinine 0.64 Est GFR ( Amer) > 60 Est GFR (Non-Af Amer) > 60 BUN/Creatinine Ratio 22 Glucose 164 H POC Glucose 175 H Calculated Osmolality 286 Calcium 8.4 L Cultures: Cultures 12/01/17 15:57 Gram Stain - Final Left Great Toe 12/01/17 15:57 Gram Stain - Final Left Great Toe - Impressions Impressions Foot X-Ray 12/01/17 16:11 IMPRESSION: Status post amputation of the 1st digit at the level of the mid 1st proximal phalanx with expected postsurgical changes. Soft tissue swelling of the forefoot may represent postsurgical changes versus persistent soft tissue edema from cellulitis. D/ / 12/01/2017 17:51:29 Desmond Mary MD / shira Interpreting Provider: Desmond Mary MD Exam - Constitutional Vitals: Temp Pulse Resp BP Pulse Ox 97.9 F 76 16 153/87 99 12/02/17 11:46 12/02/17 11:46 12/02/17 11:46 12/02/17 11:46 12/02/17 11:46 General appearance: average body habitus, cooperative, no acute distress - Head Head exam: Present: atraumatic, normal inspection, normocephalic - Eye Eye exam: Present: EOMI, normal appearance, PERRL Pupils: Present: normal accommodation - ENT ENT exam: Present: mucous membranes moist - Neck Neck exam: Present: normal inspection - Respiratory Respiratory exam: Present: CTAB. Absent: rales, respiratory distress, rhonchi, wheezes - Cardiovascular Cardiovascular exam: Present: RRR, +S1, +S2 - GI/Abdominal GI/Abdominal exam: Present: normal bowel sounds, soft. Absent: distended, tenderness - Extremities Exam Extremities exam: Present: normal inspection. Absent: joint swelling, pedal edema, tenderness Additional comments: Left foot post-op dressing C/D/I. - Neurological Exam Neurological exam: Present: alert, oriented X3, no focal deficits - Psychiatric Psychiatric exam: Present: normal affect, normal mood - Skin Skin exam: Present: dry, intact, normal color, warm - VTE Documentation of Mechanical Device: Intermittent pneumatic compression device Consult Discharge Plan - Plan Referrals: Ramone Cee DO [Primary Care Provider] - - Attending Attestation I examined this patient and my medical decision-making was reviewed with the alexis mary CNP. I agree with the documented findings, disposition and treatment plan as described except to the extent set forth below.
[2017-12-02] MEDS: metroNIDAZOLE 500 MG TABLET PO SCH ×2 (16:25→20:08)
[2017-12-03 05:08] LABS: Hemoglobin 11.3 g/dL (11.5-15.4); Mean Corpuscular HGB Conc 33.2 g/dL (31.6-35.5); Mean Corpuscular Hemoglobin 28.5 pg (28.0-33.3); Mean Corpuscular Volume 85.6 fL (83.0-100.0); Mean Platelet Volume 11.2 fL (9.4-12.4); Platelet Count 164 K/mcL (140-400); Red Blood Count 3.97 M/mcL (3.82-4.97); Red Cell Distribution Width 12.4 % (11.5-14.5)
[2017-12-03 05:30] LABS: BUN/Creatinine Ratio 25 (6-26); Blood Urea Nitrogen 17 mg/dL (8-23); Calcium 8.6 mg/dL (8.6-10.3); Carbon Dioxide 21 mEq/L (23-29); Chloride 107 mEq/L (98-107); Glucose 164 mg/dL (70-105); Osmolality,Calculated 287 (280-300); Potassium 4.2 mEq/L (3.5-5.1); Sodium 136 mEq/L (136-145); eGFR For Non-African Americans > 60 (> 60)
[2017-12-03] MEDS: Cefepime HCl 2,000 MG in Water for inj. (sterile) 20 ML 20 ML IVP SCH (06:15)
[2017-12-03] MEDS: *HR* Enoxaparin 40 MG/0.4 ML SYRINGE SQ SCH (06:16)
[2017-12-03] MEDS: metroNIDAZOLE 500 MG TABLET PO SCH ×3 (08:08→20:11)
[2017-12-03] MEDS: Insulin DETEMIR 100 UNIT/ML X5UNITS SQ SCH (08:08)
[2017-12-03] MEDS: Insulin LISPRO 300 UNITS/3 ML VIAL SQ SCH ×4 (08:09→20:11)
[2017-12-03] MEDS: 0.9 % Sodium Chloride 1,000 ML IVC SCH (08:12)
--- NOTE | 2017-12-03 09:38 | Infectious Disease Progress No ---
Date of Encounter: 12/03/17 Time of Encounter: 09:35 - Assessment and Plan (1) Foot osteomyelitis, left Current Visit: Yes Status: Acute Location: Left great toe. Causative organism: P. mirabilis, GCS, and GBS. Likely secondary to non-healing DFU. X-ray of the left foot showed findings consistent with OM of the left great toe. MRI showed findings consistent with OM of the distal phalanx and possible OM vs. reactive osteitis of the proximal phalanx of the great toe. Podiatry consulted. Status post amputation of the left hallux 12/01/[address] Samuels. The patient had mild leukocytosis on admission, but otherwise has no SIRS criteria and does not appear toxic. Leukocytosis has resolved. Post-op ESR 35, CRP 39. Discontinue Vancomycin. Discontinue Cefepime. Start Rocephin 2 grams IV daily. Continue flagyl 500mg PO TID for anaerobic coverage. Duration of treatment depends on the clinical picture, but likely a total of 6 weeks of IV antibiotics. Monitor renal function and for drug toxicity and dose-adjust antibiotics. Consult VAT for midline placement. director field services consult to assist with discharge planning. Will need weekly CBC, BUN/Cr, ESR, and CRP. Will need weekly midline care per protocol. Follow up with ID 12/22/17 at 0900. Qualifiers: Osteomyelitis type: unspecified type Qualified Code(s): M86.9 - Osteomyelitis, unspecified (2) Diabetic ulcer of foot, limited to breakdown of skin Current Visit: Yes Status: Acute Location: Plantar aspect of the left great toe. Etiology unclear. Patient denies known trauma. Podiatry consulted. Antibiotic recommendations as above. Qualifiers: Diabetic foot ulcer location: toe Diabetes mellitus type: type 2 Laterality: left Qualified Code(s): E11.621 - Type 2 diabetes mellitus with foot ulcer; L97.521 - Non-pressure chronic ulcer of other part of left foot limited to breakdown of skin (3) Type II diabetes mellitus Current Visit: Yes Status: Acute Hgb A1C 7.8%. Recommend aggressive glucose monitoring and control to promote wound healing and prevent re-infection. Management per the primary team. director field services to assist with the patient's medication costs on discharge. Qualifiers: Diabetes mellitus mcfp insulin use: with intermediate project manager use Diabetes mellitus complication status: with unspecified complications Qualified Code(s) : E11.8 - Type 2 diabetes mellitus with unspecified complications; Z79.4 - extermination supervisor (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 (4) COPD (chronic obstructive pulmonary disease) Current Visit: Yes Status: Chronic Qualifiers: COPD type: unspecified COPD Qualified Code(s): J44.9 - Chronic obstructive pulmonary disease, unspecified (5) Obesity (BMI 30-39.9) Current Visit: Yes Status: Chronic (6) Tobacco abuse Current Visit: Yes Status: Chronic - Subjective Interval history: Patient seen and examined. No acute events noted overnight. Patient states overall she feels okay. Denies fevers, chills, or rigors. Denies chest pain, shortness of breath, or cough. Denies nausea, vomiting, or diarrhea. Denies abdominal pain, urinary complaints, or appetite changes. Denies oral thrush or skin lesions. Reports no pain in her feet at this time. States she was sitting up in the chair and her foot was swelling, so she go back in bed. Infect Dis PN-Objective Data - Labs CBC & Chem 7: 12/03/17 04:50 12/03/17 04:50 Labs: Laboratory Results - last 24 hr 12/02/17 12/02/17 12/02/17 11:49 16:41 19:07 WBC RBC Hgb Hct MCV MCH MCHC RDW Plt Count MPV ESR Sodium Potassium Chloride Carbon Dioxide BUN Creatinine Est GFR ( Amer) Est GFR (Non-Af Amer) BUN/Creatinine Ratio Glucose POC Glucose 198 H 151 H 219 H Calculated Osmolality Calcium C-Reactive Protein Vancomycin Trough 12/03/17 12/03/17 12/03/17 04:50 04:50 04:50 WBC 6.1 RBC 3.97 Hgb 11.3 L Hct 34.0 L MCV 85.6 MCH 28.5 MCHC 33.2 RDW 12.4 Plt Count 164 MPV 11.2 ESR Sodium 136 Potassium 4.2 Chloride 107 Carbon Dioxide 21 L BUN 17 Creatinine 0.68 Est GFR ( Amer) > 60 Est GFR (Non-Af Amer) > 60 BUN/Creatinine Ratio 25 Glucose 164 H POC Glucose Calculated Osmolality 287 Calcium 8.6 C-Reactive Protein Vancomycin Trough 16 H 12/03/17 12/03/17 04:50 04:50 WBC RBC Hgb Hct MCV MCH MCHC RDW Plt Count MPV ESR 35 H Sodium Potassium Chloride Carbon Dioxide BUN Creatinine Est GFR ( Amer) Est GFR (Non-Af Amer) BUN/Creatinine Ratio Glucose POC Glucose Calculated Osmolality Calcium C-Reactive Protein 39 H Vancomycin Trough Cultures: Cultures 12/01/17 15:57 Wound Culture - Preliminary Left Great Toe Strep agalactiae - (Group B) Group C Streptococcus 12/01/17 15:57 Gram Stain - Final Left Great Toe 12/01/17 15:57 Gram Stain - Final Left Great Toe Exam - Constitutional Vitals: Temp Pulse Resp BP Pulse Ox 97.7 F 87 18 159/86 97 12/03/17 06:22 12/03/17 06:22 12/03/17 06:22 12/03/17 06:22 12/03/17 06:22 General appearance: cooperative, no acute distress, obese - Head Head exam: Present: atraumatic, normal inspection, normocephalic - Eye Eye exam: Present: EOMI, normal appearance, PERRL Pupils: Present: normal accommodation - ENT ENT exam: Present: mucous membranes moist - Neck Neck exam: Present: normal inspection - Respiratory Respiratory exam: Present: CTAB. Absent: rales, respiratory distress, rhonchi, wheezes - Cardiovascular Cardiovascular exam: Present: RRR, +S1, +S2 - GI/Abdominal GI/Abdominal exam: Present: distended (obese), normal bowel sounds, soft. Absent: tenderness - Extremities Exam Extremities exam: Present: pedal edema (Trace LLE). Absent: joint swelling, tenderness Additional comments: Left great toe dressing C/D/I. - Neurological Exam Neurological exam: Present: alert, oriented X3, no focal deficits - Psychiatric Psychiatric exam: Present: normal affect, normal mood - Skin Skin exam: Present: dry, intact, normal color, warm - VTE Documentation of Mechanical Device: Intermittent pneumatic compression device Consult Discharge Plan - Plan Referrals: Ramone Cee DO [Primary Care Provider] - Akiko Sahu CNP [Advanced Practice Nurse] - 12/22/17 9:00 am Prescriptions: cefTRIAXone [Rocephin] 2,000 mg IVPB DAILY #42 vial - Attending Attestation I examined this patient and my medical decision-making was reviewed with Akiko Sahu CNP. I agree with the documented findings, disposition and treatment plan as described except to the extent set forth below.
[2017-12-03] MEDS ORDERED: Lidocaine -MPF 1% 5 ML AMPUL INFILT ONE (10:08)
[2017-12-03] MEDS: Nicotine 21 MG PATCH.TD24 TD SCH (12:19)
[2017-12-03] MEDS: cefTRIAXone 2,000 MG in Water for inj. (sterile) 20 ML 20 ML IVP SCH (13:10)
--- NOTE | 2017-12-04 05:00 | Internal Med Progress Note ---
Hospitalist Progress Note - Encounter Date of Encounter: 12/02/17 Time of Encounter: 19:00 - Exam Vitals: Temp Pulse Resp BP Pulse Ox 97.6 F 76 16 160/84 93 12/04/17 03:03 12/04/17 03:03 12/04/17 03:03 12/04/17 03:03 12/04/17 03:03 Exam: xxx - Assessment and Plan (1) Foot osteomyelitis, left Current Visit: Yes Status: Acute (2) Diabetic ulcer of foot, limited to breakdown of skin Current Visit: Yes Status: Acute (3) Type 2 diabetes mellitus with hyperglycemia Current Visit: Yes Status: Chronic (4) COPD (chronic obstructive pulmonary disease) Current Visit: Yes Status: Chronic (5) Tobacco abuse Current Visit: Yes Status: Chronic - Summary of Assessment and Plan Summary of Assessment and Plan: SUBJECTIVE: The patient feels pretty good. She does not have any significant pain in her left foot. Denies nausea and vomiting. She has good appetite. She is able to ambulate with for special boot. Denies chest pain, dyspnea, coughing and wheezing. OBJECTIVE: Skin: Free of rash and discoloration. There is a surgical dressing in the distal portion of left foot. ENMT: Oral/pharyngeal mucosa is normal in appearance. Eyes: Sclera is white. There is no discharge from eyes. Respiratory: Normal breath sounds; no crackles or wheezes. CV: Heart is regular; no gallop or murmur. GI: Abdomen is soft and not tender. There is no palpable mass or visceromegaly. Neuro: There is no focal deficits. ASSESSMENT AND PLAN: Osteomyelitis of left great toe/diabetic ulcer of left foot. The patient underwent left hallux amputation on 12/01/17. She is followed by podiatry and infectious disease. She is on IV vancomycin and IV cefepime. Cultures are pending. Type 2 diabetes mellitus, uncontrolled. Her hyperglycemia is secondary to infection. We will keep her on diabetic diet, Levemir and when necessary Humalog. We will do adjustments to that treatment, if needed. COPD. She is a tobacco user. She does not report to me difficulty breathing/ wheezing in the hospital. We will continue when necessary albuterol inhalations. DISPOSITION: I expect her to be released home sometime tomorrow or after tomorrow. - Time Spent with Patient Total time spent is greater than 50% in coordination of care (as documented) at patient's floor/unit and/or counseling patient: Internal Medicine: Result - Labs CBC & Chem 7: 12/03/17 04:50 12/03/17 04:50 Labs: Short CBC 12/03/17 Range/Units 04:50 WBC 6.1 (4.3-11.1) K/mcL Hgb 11.3 L (11.5-15.4) g/dL Hct 34.0 L (35.3-44.9) % Plt Count 164 (140-400) K/mcL BMP 12/03/17 04:50 Sodium 136 Potassium 4.2 Chloride 107 Carbon Dioxide 21 L BUN 17 Creatinine 0.68 Glucose 164 H Calcium 8.6 - VTE Documentation of Mechanical Device: Intermittent pneumatic compression device Consult Discharge Plan - Plan Referrals: Ramone Cee DO [Primary Care Provider] - Akiko Sahu CNP [Advanced Practice Nurse] - 12/22/17 9:00 am Prescriptions: cefTRIAXone [Rocephin] 2,000 mg IVPB DAILY #42 vial (1) Foot osteomyelitis, left Qualifiers: Osteomyelitis type: unspecified type Qualified Code(s): M86.9 - Osteomyelitis , unspecified (2) Diabetic ulcer of foot, limited to breakdown of skin Qualifiers: Diabetic foot ulcer location: toe Diabetes mellitus type: type 2 Laterality : left Qualified Code(s): E11.621 - Type 2 diabetes mellitus with foot ulcer; L97.521 - Non-pressure chronic ulcer of other part of left foot limited to breakdown of skin (4) COPD (chronic obstructive pulmonary disease) Qualifiers: COPD type: unspecified COPD Qualified Code(s): J44.9 - Chronic obstructive pulmonary disease, unspecified
[2017-12-04] MEDS: *HR* Enoxaparin 40 MG/0.4 ML SYRINGE SQ SCH (05:12)
--- NOTE | 2017-12-04 05:22 | Internal Med Progress Note ---
Hospitalist Progress Note - Encounter Date of Encounter: 12/03/17 Time of Encounter: 19:00 - Exam Vitals: Temp Pulse Resp BP Pulse Ox 97.6 F 76 16 160/84 93 12/04/17 03:03 12/04/17 03:03 12/04/17 03:03 12/04/17 03:03 12/04/17 03:03 Exam: xxx - Assessment and Plan (1) Foot osteomyelitis, left Current Visit: Yes Status: Acute (2) Diabetic ulcer of foot, limited to breakdown of skin Current Visit: Yes Status: Acute (3) Type 2 diabetes mellitus with hyperglycemia Current Visit: Yes Status: Chronic (4) COPD (chronic obstructive pulmonary disease) Current Visit: Yes Status: Chronic (5) Tobacco abuse Current Visit: Yes Status: Chronic DVT Prophylaxis: lovenox - Summary of Assessment and Plan Summary of Assessment and Plan: SUBJECTIVE: The patient feels good. She does not have any significant pain in her left foot. Denies nausea and vomiting. She has good appetite. She is able to ambulate with for special boot. Denies chest pain, dyspnea, coughing and wheezing. OBJECTIVE: Skin: Free of rash and discoloration. There is a surgical dressing in the distal portion of left foot. ENMT: Oral/pharyngeal mucosa is normal in appearance. Eyes: Sclera is white. There is no discharge from eyes. Respiratory: Normal breath sounds; no crackles or wheezes. CV: Heart is regular; no gallop or murmur. GI: Abdomen is soft and not tender. There is no palpable mass or visceromegaly. Neuro: There is no focal deficits. ASSESSMENT AND PLAN: Osteomyelitis of left great toe/diabetic ulcer of left foot. The patient underwent left hallux amputation on 12/01/17. She is followed by podiatry and infectious disease. She is switched from IV vancomycin/IV cefepime to IV Rocephin/by mouth metronidazole. Type 2 diabetes mellitus, uncontrolled. Her hyperglycemia is secondary to infection. We will keep her on diabetic diet, Levemir and when necessary Humalog. We will do adjustments to that treatment, if needed. COPD. She is a tobacco user. She does not report to me difficulty breathing/ wheezing in the hospital. We will continue when necessary albuterol inhalations. DISPOSITION: We are trying to get her accepted to our IV infusion center. She can be discharged home tomorrow afternoon (after her due dose of IV Rocephin). IV Rocephin is to be given for a total of 42 days. - Time Spent with Patient Total time spent is greater than 50% in coordination of care (as documented) at patient's floor/unit and/or counseling patient: 25 - 35 minutes Plan of Care Discussed with: patient Internal Medicine: Result - Labs CBC & Chem 7: 12/03/17 04:50 12/03/17 04:50 Labs: BMP 12/03/17 04:50 Sodium 136 Potassium 4.2 Chloride 107 Carbon Dioxide 21 L BUN 17 Creatinine 0.68 Glucose 164 H Calcium 8.6 - VTE Documentation of Mechanical Device: Intermittent pneumatic compression device Consult Discharge Plan - Plan Referrals: Ramone Cee DO [Primary Care Provider] - Akiko Sahu CNP [Advanced Practice Nurse] - 12/22/17 9:00 am Prescriptions: cefTRIAXone [Rocephin] 2,000 mg IVPB DAILY #42 vial (1) Foot osteomyelitis, left Qualifiers: Osteomyelitis type: unspecified type Qualified Code(s): M86.9 - Osteomyelitis , unspecified (2) Diabetic ulcer of foot, limited to breakdown of skin Qualifiers: Diabetic foot ulcer location: toe Diabetes mellitus type: type 2 Laterality : left Qualified Code(s): E11.621 - Type 2 diabetes mellitus with foot ulcer; L97.521 - Non-pressure chronic ulcer of other part of left foot limited to breakdown of skin (4) COPD (chronic obstructive pulmonary disease) Qualifiers: COPD type: unspecified COPD Qualified Code(s): J44.9 - Chronic obstructive pulmonary disease, unspecified
[2017-12-04 05:54] LABS: Hematocrit 33.4 % (35.3-44.9); Hemoglobin 11.1 g/dL (11.5-15.4); Mean Corpuscular HGB Conc 33.2 g/dL (31.6-35.5); Mean Corpuscular Hemoglobin 28.5 pg (28.0-33.3); Mean Corpuscular Volume 85.9 fL (83.0-100.0); Mean Platelet Volume 11.5 fL (9.4-12.4); Platelet Count 155 K/mcL (140-400); Red Blood Count 3.89 M/mcL (3.82-4.97); Red Cell Distribution Width 12.6 % (11.5-14.5)
[2017-12-04 06:12] LABS: BUN/Creatinine Ratio 24 (6-26); Blood Urea Nitrogen 15 mg/dL (8-23); Calcium 8.4 mg/dL (8.6-10.3); Carbon Dioxide 23 mEq/L (23-29); Chloride 108 mEq/L (98-107); Glucose 140 mg/dL (70-105); Osmolality,Calculated 287 (280-300); Potassium 4.2 mEq/L (3.5-5.1); Sodium 137 mEq/L (136-145); eGFR For Non-African Americans > 60 (> 60)
[2017-12-04] MEDS: Insulin LISPRO 300 UNITS/3 ML VIAL SQ SCH ×2 (08:24→11:55)
[2017-12-04] MEDS: Insulin DETEMIR 100 UNIT/ML X5UNITS SQ SCH (10:07)
[2017-12-04] MEDS: metroNIDAZOLE 500 MG TABLET PO SCH ×2 (10:07→15:09)
[2017-12-04 11:20] VITALS: BP 168/90
[2017-12-04] MEDS: Nicotine 21 MG PATCH.TD24 TD SCH (11:55)
--- NOTE | 2017-12-04 12:59 | Discharge Summary ---
Orders not resulted at time of discharge: Pending orders 12/01/17 15:57 Culture,Anaerobic [RM] Routine Culture,Anaerobic [RM] Routine Culture,Wound [RM] Routine 12/05/17 04:00 BMP [Basic Metabolic Panel] AM 0400 Complete Blood Count w/o Diff [HEME] AM 0400 Date of Encounter: 12/04/17 Time of Encounter: 12:45 - Discharge Diagnosis (1) Foot osteomyelitis, left Priority: Primary Status: Acute Qualifiers: Osteomyelitis type: unspecified type Qualified Code(s): M86.9 - Osteomyelitis, unspecified (2) Diabetic ulcer of foot, limited to breakdown of skin Priority: Primary Status: Acute Qualifiers: Diabetic foot ulcer location: toe Diabetes mellitus type: type 2 Laterality: left Qualified Code(s): E11.621 - Type 2 diabetes mellitus with foot ulcer; L97.521 - Non-pressure chronic ulcer of other part of left foot limited to breakdown of skin (3) Type 2 diabetes mellitus with hyperglycemia Priority: Secondary Status: Chronic Qualifiers: Diabetes mellitus skilled nursing insulin use: with skilled nursing use Qualified Code( s): E11.65 - Type 2 diabetes mellitus with hyperglycemia; 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 She was presented to podiatry. She underwent a left hallux amputation on 12/01/17. We consulted infectious diseases. She was initially on IV vancomycin and IV cefepime. Then, she was switched from IV cefepime and IV Rocephin. She was getting her by mouth metronidazole. Her wound cultures showed strep agalactiae and Proteus vulgaris. On the day of her discharge we switched her to IV Rocephin only. CONDITION AT DISCHARGE: The patient is doing fine. She is able to ambulate her with a special boot applied to her left foot/ankle area. The pain is under control. Skin: Free of rash and discoloration. The surgical dressing applied to the distal portion of left foot. See notes from podiatry/infectious diseases. Respiratory: Normal breath sounds with no crackles and wheezes bilaterally. CV: Heart is regular with no gallop or murmur. GI: Abdomen is flat and soft with no palpable mass or visceromegaly. Neuro exam: There is no focal deficits. Normal speech, swallowing and gait. SEE DISCHARGE ORDERS/MEDICATIONS.. The patient will be taking IV Rocephin for a total of 42 days. She got a prescription for [place] 5/325. Discharge discussed with: patient Time spent discussing smoking cessation with patient: 3 to 10 minutes - Time Spent with Patient Total time spent providing and/or coordinating discharge services: Greater than 30 minutes (50 minutes) - Discharge Medications Prescriptions: cefTRIAXone [Rocephin] 2,000 mg IVPB DAILY #42 vial HYDROcodone/Acet 5/325 mg [[place] 5-325 mg] 1 tab PO Q6H PRN 4 Days #10 tablet PRN Reason: Moderate Pain Home Medications: cefTRIAXone [Rocephin] 2,000 mg IVPB DAILY #42 vial 12/03/17 [Rx] Acetaminophen [Tylenol] 650 mg PO Q6H PRN tablet 12/04/17 [Rx] Albuterol Neb [Proventil Neb] 2.5 mg IH [id number] PRN inhsol 12/04/17 [Rx] HYDROcodone/Acet 5/325 mg [[place] 5-325 mg] 1 tab PO Q6H PRN 4 Days #10 tablet [Rx] Insulin DETEMIR [Levemir] 15 unit SQ DAILY [id number] 12/04/17 [Rx] Insulin LISPRO [HumaLOG] 0 units SQ HS vial 12/04/17 [Rx] Insulin LISPRO [HumaLOG] 0 units SQ TIDAC vial 12/04/17 [Rx] Nicotine Patch [Nicoderm] 21 mg TD Q24H patch.td24 12/04/17 [Rx] metroNIDAZOLE [Flagyl] 500 mg PO TID tablet 12/04/17 [Rx] Allergies/Adverse Reactions: 3 Allergy/AdvReac Type Severity Reaction Status Date / Time nabumetone [From Relafen] AdvReac Dizziness Verified 11/29/17 17:09 Date of admission: 11/29/17 18:22 Primary care physician: Ramone Cee Consults: 11/29/17 19:32 Consult to Wound Care [CONS] Routine Reason for Consult: LLE Diabetic Ulcer, Osteomyelitis Call Completed: No 11/29/17 19:34 Consult to Phd Internship [CONS] Routine Reason for SW Consult: May need extended course of IV antibiotics. Please help with discharge planning. Thanks. 12/01/17 16:09 Consult to Physical Therapy [CONS] Routine Comment: Evaluate, develop and implement POC Reason for Consult: Post op, left great toe amputation, diabetic boot Does patient have active BEDREST order?: No Is patient medically & hemodynamically stable?: Yes Patient assessed for mobility or mobilized this visit?: Yes 12/03/17 10:08 Consult to Invasive Line Access Team [CONS] Routine Reason for Consult: Rocephin x 6 weeks Line Type: Midline PICC line indications: termite treater helper Med/Antibiotic Time Notified: 10:08 Call Completed: Yes Discharging clinician: Fernando Marmolejo Anticipated date of discharge: 12/04/17 - Constitutional Exam: xxx - Constitutional Vitals: Temp Pulse Resp BP Pulse Ox 97.9 F 67 14 168/90 97 12/04/17 11:16 12/04/17 11:16 12/04/17 11:16 12/04/17 11:16 12/04/17 11:16 General appearance: Present: cooperative, A&O X 3, morbidly obese, no acute distress, answers questions appropriately - Patient Status Disposition: Home, Self-Care Condition: Fair Functional capacity at discharge: independent ambulation Overall status at discharge: patient is progressing back to baseline - Discharge Instructions Instructions: Diabetes Mellitus Type 2 in Adults (DC) Follow Up With: Ramone Cee DO [Primary Care Provider] - Akiko Sahu SCHOOL COUNSELOR [Advanced Practice Nurse] - 12/22/17 9:00 am Additional Instructions: Will need weekly CBC, BUN/Cr, ESR, and CRP. Will need weekly midline care per protocol. Follow up with ID 12/22/17 at 0900. Daily dressing change - as per podiatry (the pt and her ).. IV Rocephin - at our infusion center.. 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 - Diet and Activity Activity: increase activity as tolerated Diet: diabetic diet - VTE Documentation of Mechanical Device: Intermittent pneumatic compression device Deep Vein Thrombosis/Pulmonary Embolism Present on Admission: No
[2017-12-04] MEDS: cefTRIAXone 2,000 MG in Water for inj. (sterile) 20 ML 20 ML IVP SCH (15:09)
[2017-12-04] MEDS ORDERED: Aminoglycoside Consult 1 EACH MC ONE (15:35)
--- NOTE | 2017-12-06 06:32 | Internal Med Progress Note ---
Hospitalist Progress Note - Encounter Date of Encounter: 12/03/17 Time of Encounter: 19:00 - Exam Vitals: Temp Pulse Resp BP Pulse Ox 97.9 F 67 14 168/90 97 12/04/17 11:16 12/04/17 11:16 12/04/17 11:16 12/04/17 11:16 12/04/17 11:16 Exam: xxx - Assessment and Plan (1) Foot osteomyelitis, left Status: Acute (2) Diabetic ulcer of foot, limited to breakdown of skin Status: Acute (3) Type 2 diabetes mellitus with hyperglycemia Status: Chronic (4) COPD (chronic obstructive pulmonary disease) Status: Chronic (5) Tobacco abuse Status: Chronic DVT Prophylaxis: lovenox - Summary of Assessment and Plan Summary of Assessment and Plan: SUBJECTIVE: The patient feels good. She does not have any significant pain in her left foot. Denies nausea and vomiting. She has good appetite. She is able to ambulate with her special boot on left foot. Denies chest pain, dyspnea, coughing and wheezing. OBJECTIVE: Skin: Free of rash and discoloration. There is a surgical dressing in the distal portion of left foot. ENMT: Oral/pharyngeal mucosa is normal in appearance. Eyes: Sclera is white. There is no discharge from eyes. Respiratory: Normal breath sounds; no crackles or wheezes. CV: Heart is regular; no gallop or murmur. GI: Abdomen is soft and not tender. There is no palpable mass or visceromegaly. Neuro: There is no focal deficits. ASSESSMENT AND PLAN: Osteomyelitis of left great toe/diabetic ulcer of left foot. The patient underwent left hallux amputation on 12/01/17. She is followed by podiatry and infectious disease. She is switched from IV vancomycin/IV cefepime to IV Rocephin/by mouth metronidazole. Anaerobic culture results are pending. Type 2 diabetes mellitus, uncontrolled. The control seems to be better. Her fingersticks are from today are 165, 199, 135 and 171. COPD. She is a tobacco user. She does not report to me difficulty breathing/ wheezing in the hospital. We will continue when necessary albuterol inhalations. DISPOSITION: She can be discharged home tomorrow afternoon (after her due dose of IV Rocephin ). IV Rocephin is to be given for a total of 42 days. - Time Spent with Patient Total time spent is greater than 50% in coordination of care (as documented) at patient's floor/unit and/or counseling patient: Internal Medicine: Result - Labs CBC & Chem 7: 12/04/17 04:00 12/04/17 04:00 - VTE Documentation of Mechanical Device: Intermittent pneumatic compression device Deep Vein Thrombosis/Pulmonary Embolism Present on Admission: No Consult Discharge Plan - Plan Instructions: Diabetes Mellitus Type 2 in Adults (DC) Additional Instructions: Will need weekly CBC, BUN/Cr, ESR, and CRP. Will need weekly midline care per protocol. Follow up with ID 12/22/17 at 0900. Daily dressing change - as per podiatry (the pt and her ).. IV Rocephin - at our infusion center.. 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 Referrals: Ramone Cee DO [Primary Care Provider] - Akiko Sahu CREDIT VERIFICATION CLERK [Advanced Practice Nurse] - 12/22/17 9:00 am Prescriptions: cefTRIAXone [Rocephin] 2,000 mg IVPB DAILY #42 vial HYDROcodone/Acet 5/325 mg [[place] 5-325 mg] 1 tab PO Q6H PRN 4 Days #10 tablet PRN Reason: Moderate Pain (1) Foot osteomyelitis, left Qualifiers: Osteomyelitis type: unspecified type Qualified Code(s): M86.9 - Osteomyelitis , unspecified (2) Diabetic ulcer of foot, limited to breakdown of skin Qualifiers: Diabetic foot ulcer location: toe Diabetes mellitus type: type 2 Laterality : left Qualified Code(s): E11.621 - Type 2 diabetes mellitus with foot ulcer; L97.521 - Non-pressure chronic ulcer of other part of left foot limited to breakdown of skin (4) COPD (chronic obstructive pulmonary disease) Qualifiers: COPD type: unspecified COPD Qualified Code(s): J44.9 - Chronic obstructive pulmonary disease, unspecified
== END 2017-12-04 15:36 | disposition home or self-care (01) | DRG 617 ==
LOC: EMEROOARM 15:18 → 3NENU 15:18 → SUATTDRO 18:22 → 3NENU 18:33
PROVIDERS: ADMIT Family Medicine; ATTEND Internal Medicine

== ENCOUNTER 2018-09-16 14:44 | Inpatient (IN) ==
--- NOTE | 2018-09-16 16:13 | Emergency Department Note ---
Disposition Clinical Impression: Aphasia Stroke Qualifiers: CVA mechanism: unspecified Qualified Code(s): I63.9 - Cerebral infarction, unspecified Disposition: Admitted As Inpatient Condition: Fair Time of Disposition: 17:07 General Adult HPI - General Chief complaint: ED Neuro Symptoms/Deficit Stated complaint: Neuro S/SX Time Seen by Provider: 09/16/18 15:02 Source: patient, family Mode of arrival: ambulatory Limitations: other (verbal difficulty) Nursing Notes Reviewed: Yes Vital Signs Reviewed: Yes - History of Present Illness HPI Narrative: 62-year-old female with significant past medical history of multiple previous strokes currently on aspirin and no other anticoagulation presenting to the emergency department chief complaint of 3-4 days of headache and verbal difficulties. According to the at bedside she was doing well after her previous stroke and her speech was significantly better. X-ray 3-4 days ago she had difficulty finding her words and has progressively been getting worse. She also states that she has had a bifrontal headache for the past 3-4 days. Denies any falls or trauma. At this time she denies any other symptoms including fevers, chest pain, shortness of breath or dizziness. Denies any weakness or paresthesias. Pain Scale: 9 - Related Data Home Medications Medication Instructions Recorded Confirmed Atorvastatin [Lipitor] 40 mg PO DAILY 03/28/18 09/16/18 metFORMIN [Glucophage] 500 mg PO BIDWM 03/28/18 09/16/18 Aspirin 81 mg PO DAILY 09/16/18 09/16/18 Clopidogrel [Plavix] 75 mg PO DAILY 09/16/18 09/16/18 Lisinopril [Zestril] 5 mg PO DAILY 09/16/18 09/16/18 Allergies Allergy/AdvReac Type Severity Reaction Status Date / Time nabumetone [From Relafen] AdvReac Dizziness Verified 09/16/18 14:50 All systems ED: reviewed and negative except as stated. Constitutional: Denies: fever Eyes: Reports: as per HPI ENT ED: Reports: as per HPI Cardiovascular: Denies: chest pain Respiratory: Denies: dyspnea Gastrointestinal: Reports: as per HPI Genitourinary: Reports: as per HPI Musculoskeletal: Reports: as per HPI Integumentary: Reports: as per HPI Neurological: Reports: headache. Denies: paresthesias Psychiatric: Reports: as per HPI Endocrine: Reports: as per HPI Hematological/Lymphatic: Reports: as per HPI Allergic/Immunologic: Reports: as per HPI Past Medical History - Past Medical History Attestation: Yes The following information was validated with the patient. Medical history: Reports: CVA, diabetes, hyperlipidemia, hypertension, other Surgical history: Reports: , orthopedic, other Psychiatric history: Reports: no psych history GIFTS OFFICER history: Reports: no GIFTS OFFICER history - Social History Smoking Status: Current every day smoker Smokeless Tobacco Status: No Alcohol use: Reports: none Drug use: Reports: none Physical Exam - General Limitations: other (Verbal difficulty) General appearance: alert, in no apparent distress - Head Head exam: atraumatic, normocephalic, normal inspection - Eye Eye exam: Present: PERRL, EOMI, other (Right upper quadrant visual difficulties in peripheral vision). Absent: scleral icterus - ENT ENT exam: mucous membranes moist - Neck Neck exam: Present: full ROM - Chest Chest inspection: Present: symmetric chest wall rise - Respiratory Respiratory exam: Present: normal lung sounds bilaterally. Absent: respiratory distress, wheezes - Cardiovascular Cardiovascular exam: Present: normal rhythm, tachycardia, normal heart sounds - Abdominal Exam Abdominal exam: Present: soft, Non-Tender. Absent: distention, guarding, rebound - Extremities Exam Extremities exam: Present: full ROM - Neurological Exam Neurological exam: Present: alert, oriented X3 - Psychiatric Psychiatric exam: Present: anxious - Skin Skin exam: Present: warm Course Course Narrative: 62-year-old female presenting for difficulty in speech. Patient has no history of stroke. Currently on aspirin. Patient has had symptoms for 3-4 days. Circular will not be called at this time due to duration of symptoms. Concern the patient has had a new stroke. Patient does have expressive aphasia at this time. She is alert and oriented 3 and hemodynamically stable. Physical exam shows right upper quadrant visual difficulties as well. We will perform a stroke workup and plan to admit her for further evaluation and treatment. Patient agrees with this plan. - Reevaluation(s) Reevaluation #1: Patient's laboratory analysis benign. CT of the head concerning for the following Subacute infarct left occipital lobe. Mild progression of the left MCA distribution infarct, most which is subacute to chronic We will provide a full dose aspirin to the patient at this time and plan to admit her for further evaluation and treatment of her subacute stroke. Patient remains alert and oriented 3 and hemodynamically stable. Patient agrees with this plan. I spoke with the neurologist control manager Dr. Wilson who has no further recommend patient to the emergency department at this time. I spoke with the hospitalist control manager Dr. Layne who agrees to accept the patient at this time. Vital Signs Temperature 98.2 F 09/16/18 14:48 Pulse Rate 113 09/16/18 14:48 Respiratory Rate 16 09/16/18 14:48 Blood Pressure 168/90 09/16/18 14:48 O2 Sat by Pulse Oximetry 97 09/16/18 14:48 Temperature 98.2 F 09/16/18 15:56 Pulse Rate 87 09/16/18 16:26 Respiratory Rate 16 09/16/18 16:26 Blood Pressure 128/81 09/16/18 16:26 O2 Sat by Pulse Oximetry 98 09/16/18 16:26 Oxygen Delivery Oxygen Delivery Room Air Medical Decision Making - Lab Data Result diagrams: 09/16/18 15:50 09/16/18 15:50 Lab Results 09/16/18 09/16/18 09/16/18 Range/Units 15:50 15:50 15:50 WBC 4.4 (4.3-11.1) K/mcL RBC 5.09 H (3.82-4.97) M/mcL Hgb 14.6 (11.5-15.4) g/dL Hct 42.4 (35.3-44.9) % MCV 83.3 (83.0-100.0) fL MCH 28.7 (28.0-33.3) pg MCHC 34.4 (31.6-35.5) g/dL RDW 13.2 (11.5-14.5) % Plt Count 165 (140-400) K/mcL MPV 10.6 (9.4-12.4) fL PT 11.6 (9.4-12.1) Seconds INR 1.0 APTT 29.8 (26.0-36.0) Seconds Sodium 136 (136-145) mEq/L Potassium 3.7 (3.5-5.1) mEq/L Chloride 101 (98-107) mEq/L Carbon Dioxide 27 (23-29) mEq/L BUN 16 (8-23) mg/dL Creatinine 0.91 (0.60-1.20) mg/dL Est GFR ( Amer) > 60 (> 60) Est GFR (Non-Af Amer) > 60 (> 60) BUN/Creatinine Ratio 18 (6-26) Glucose 176 H (70-105) mg/dL Calculated Osmolality 287 (280-300) Calcium 9.1 (8.6-10.3) mg/dL Troponin I < 0.03 (< 0.04) ng/mL Attestation Statement - Attestation Attestation: I, Mykel Amezcua, examined this patient and my medical decision-making was reviewed with the ETHNOLOGY TEACHER/PA/Advanced Practice Nurse/Resident Physician. I agree with the documented findings, disposition and treatment plan as described except to the extent set forth below. 62-year-old female presents emergency Department with concerns of difficulty with her speech and changes in her vision. Patient states she had similar symptoms in the past with her described as being secondary to a CVA. She had worked with speech therapy and had significant improvement however within the past 3-4 days she has had worsening of her speech. She has an expressive apha zuleika and is sometimes has difficulty with coming up with the correct words. She also has mild slurring of her speech. On physical exam the patient has deficit of the right upper quadrant of her vision in the right eye with questionable involvement of the left. Extraocular muscle movement was intact. The rest of the physical exam did not show evidence of focal neurologic deficit. CT shows new lesion from likely CVA. Patient is not a TPA candidate as this is been present over the past few days. She will be admitted to the hospitalist for further care and evaluation. NIH Stroke Scale - Level of Consciousness LOC: Alert - LOC Questions LOC Questions: Answers both correctly - LOC Commands LOC Commands: Performs both correctly - Best Gaze Best Gaze: Normal - Visual Visual: Partial hemianopia - Facial Palsy Facial Palsy: Normal - Motor Arms Motor Arm-Left: No drift for 10 seconds Motor Arm-Right: No drift for 10 seconds - Motor Legs Motor Leg-Left: No drift for 5 seconds Motor Leg-Right: No drift for 5 seconds - Limb Ataxia Limb Ataxia: Absent of affected limb too weak to perform exam - Sensory Sensory: Normal - Best Language Best Language: Severe aphasia. Examiner CAN NOT identify pictures from response - Dysarthria Dysarthria: Mild, slurs some words - Extinction and Inattention Extinction and Inattention: Normal - NIHSS Total Score NIHSS Total Score: 4
[2018-09-16 16:26] LABS: Hematocrit 42.4 % (35.3-44.9); Hemoglobin 14.6 g/dL (11.5-15.4); Mean Corpuscular HGB Conc 34.4 g/dL (31.6-35.5); Mean Corpuscular Hemoglobin 28.7 pg (28.0-33.3); Mean Corpuscular Volume 83.3 fL (83.0-100.0); Mean Platelet Volume 10.6 fL (9.4-12.4); Platelet Count 165 K/mcL (140-400); Red Blood Count 5.09 M/mcL (3.82-4.97); Red Cell Distribution Width 13.2 % (11.5-14.5)
[2018-09-16 16:33] LABS: Prothrombin Time 11.6 Seconds (9.4-12.1)
[2018-09-16 16:36] LABS: Activated Partial Thrombo Time 29.8 Seconds (26.0-36.0)
[2018-09-16 16:45] LABS: BUN/Creatinine Ratio 18 (6-26); Blood Urea Nitrogen 16 mg/dL (8-23); Calcium 9.1 mg/dL (8.6-10.3); Carbon Dioxide 27 mEq/L (23-29); Chloride 101 mEq/L (98-107); Glucose 176 mg/dL (70-105); Osmolality,Calculated 287 (280-300); Potassium 3.7 mEq/L (3.5-5.1); Sodium 136 mEq/L (136-145); eGFR For Non-African Americans > 60 (> 60)
[2018-09-16 16:46] LABS: Troponin I < 0.03 ng/mL (< 0.04)
[2018-09-16] MEDS ORDERED: Aspirin 325 MG TABLET PO ONE (16:51)
--- NOTE | 2018-09-16 17:26 | Internal Med History&Physical ---
<Hebert Wall - Last Filed: 09/16/18 18:25> Date of Encounter: 09/16/18 Time of Encounter: 17:55 Internal Medicine - H&P: HPI Chief complaint: Dysarthria, bifrontal headache History of present illness: Ms. Cuadra is a 62 year old female with a PMH of COPD, history of prior CVA with residual speech deficits, HTN, HLD, and diabetes mellitus who presented to [facility] ED on 09/16/18 with the chief complaint of headache and verbal difficulties. She had a previous CVA earlier in the year. Due to speech difficulties, most of the history is provided by her at bedside. He states that during her initial CVA workup, it was determined that she had carotid stenosis. No intervention was performed at that time. He states that her speech became impaired around 3-4 days ago. She specifically had a difficult time finding her words. Also reported a bifrontal headache during the same time period. She reports visual deficits in the right upper quadrant bilaterally. She denied having any focal weakness, falls, trauma, dysphagia, numbness, tingling, or p aresthesias. Upon arrival to the emergency department, patients vital signs were as follows: Temperature 98.2, pulse 113, respiratory rate 16, blood pressure 168/90, and O2 saturation 97%. Laboratory analysis was unremarkable. CT scan of the head was ordered, which demonstrated a subacute infarct in the left occipital lobe, mild progression of the left MCA distribution infarct, most of which is subacute to chronic. In the ED, patient was given a one-time dose of aspirin 325 mg. Neurology was consulted from the emergency department. Patient was seen and examined at bedside; she is tearful on exam. She has some difficulty speaking, but it is clear she understands the questions being asked and is alert and oriented. She is able to speak in simple sentences, but some of her words are slurred. She is unable to provide much information regarding her history of previous CVA or her home medications. On exam, she has no focal weakness. Cranial nerves are intact, and there is no facial drooping present. Patient does report deficits in her visual [place] in the right upper quadrant. She reports a family history of CVA on her father's side. She says that she still has a mild bifrontal headache. Past Med Surg Social Fam HX - Past Medical History Medical history: CVA, diabetes, hyperlipidemia, hypertension, other Additional medical history: Slurred speech from previous CVA. Type II Diabetic Psychiatric history: no psych history - Past Surgical History Surgical History: , orthopedic, other Additional surgical history: right knee and left ankle. great toe amputated left foot - Social History Smoking Status: Current every day smoker Smokeless Tobacco Status: No Alcohol use: none Drug use: none - Family History Father Living Status: Hx Family Cardiac Disorders: (hypertension) Hx Family Neuromuscular Disorders: Yes (CVA) Daughter Adopted: No Hx Family Cardiac Disorders: Yes (hypertension) Mother Living Status: Internal Medicine - H&P: Meds Atorvastatin [Lipitor] 40 mg PO DAILY 03/28/18 [History] metFORMIN [Glucophage] 500 mg PO BIDWM 03/28/18 [History] Clopidogrel [Plavix] 75 mg PO DAILY 09/16/18 [History] Lisinopril [Zestril] 5 mg PO DAILY 09/16/18 [History] Allergy/AdvReac Type Severity Reaction Status Date / Time nabumetone [From Relafen] AdvReac Dizziness Verified 09/16/18 14:50 All Systems PM: A 10-system review of systems was performed and is negative for pertinent findings except as documented above in the HPI. - Constitutional Constitutional: no weakness - EENT Eyes: change in vision, no discharge, no pain, no photophobia Nose, mouth and throat: no dysphagia - Cardiovascular Cardiovascular ROS IM: no chest pain, no diaphoresis, no dyspnea, no lightheadedness, no palpitations, no syncope - Neurological Neurological ROS: abnormal speech, headache(s), no confusion, no convulsions, no focal weakness, no numbness, no tingling, no tremor(s) - Constitutional Vitals: Temp Pulse Resp BP Pulse Ox 98.2 F 87 16 128/81 98 09/16/18 15:56 09/16/18 16:26 09/16/18 16:26 09/16/18 16:26 09/16/18 16:26 Exam: General: A&O X3, slurred speech, tearful, moderate distress Head: atraumatic, normocephalic Eye: PERRL, EOMI, conjuntiva pink, sclera anicteric; visual field deficits in right upper quadrant bilaterally Neck: Supple, trachea midline; No lymphadenopathy Respiratory: CTAB. No accessory muscle use, wheezes, rales, or rhonchi Cardiovascular: RRR, +S1, +S2; no murmurs, rubs, gallops Abdomen: Soft, nontender Extremities: warm, radial pulses palpable and symmetrical Neurological: CN II-XII intact Psychiatric: Tearful, distressed Skin: Dry, intact Internal Med - H&P Results - Labs CBC & Chem 7: 09/16/18 15:50 09/16/18 15:50 Labs: Short CBC 09/16/18 Range/Units 15:50 WBC 4.4 (4.3-11.1) K/mcL Hgb 14.6 (11.5-15.4) g/dL Hct 42.4 (35.3-44.9) % Plt Count 165 (140-400) K/mcL BMP 09/16/18 15:50 Sodium 136 Potassium 3.7 Chloride 101 Carbon Dioxide 27 BUN 16 Creatinine 0.91 Glucose 176 H Calcium 9.1 Cardiac Enzymes 09/16/18 Range/Units 15:50 Troponin I < 0.03 (< 0.04) ng/mL - Impressions ITS Impressions Head CT 09/16/18 15:35 IMPRESSION: Subacute infarct left occipital lobe. Mild progression of the left MCA distribution infarct, most which is subacute to chronic MRI could be beneficial for further characterization. Critical results were called by Dr. Ky Carl to Dr Bai on 09/16/2018 at 16:31. D/ / Ky Carl / Ky Carl Interpreting Provider: Ky Carl - Assessment and Plan (1) CVA (cerebral vascular accident) Current Visit: Yes Status: Acute Assessment and plan: - Presented with bifrontal headache and dysarthria starting 3-4 days ago - Patient had a prior CVA several months ago - CT scan of the head: Subacute infarct and left occipital lobe, mild progression of left MCA distribution infarct, subacute to chronic - Patient given aspirin 325 mg and emergency department - Normally takes an aspirin and statin at home - Neurology was consulted from the emergency department Plan: - MRI/MRA of head and neck - Stroke precautions - When necessary labetalol for systolic blood pressure > 220 - Start aspirin and statin - Echocardiogram ordered - Nothing by mouth except oral meds - Consult speech therapy Qualifiers: CVA mechanism: unspecified Qualified Code(s): I63.9 - Cerebral infarction, unspecified (2) HTN (hypertension) Current Visit: No Status: Chronic Assessment and plan: - Patient has a known history of hypertension - Presented with a blood pressure of 168/90 Plan: - Allow for permissive hypertension - PRN labetalol for SBP > 220 Qualifiers: Hypertension type: essential hypertension Qualified Code(s): I10 - Essential (primary) hypertension (3) HLD (hyperlipidemia) Current Visit: No Status: Chronic Assessment and plan: - Lipid panel pending with a.m. labs Qualifiers: Hyperlipidemia type: unspecified Qualified Code(s): E78.5 - Hyperlipidemia, unspecified (4) Diabetes Current Visit: Yes Status: Acute Assessment and plan: - Sliding scale insulin Qualifiers: Qualified Code(s): E11.9 - Type 2 diabetes mellitus without complications - Time Spent With Patient Total time spent is greater than 50% in coordination of care (as documented) at patient's floor/unit and/or counseling patient: <Callie Martinez - Last Filed: 09/16/18 18:45> Date of Encounter: 09/16/18 Internal Medicine - H&P: HPI History of present illness: Ms. Cuadra is a 62 year old female All Systems PM: A 10-system review of systems was performed and is negative for pertinent findings except as documented above in the HPI. - Constitutional Vitals: Temp Pulse Resp BP Pulse Ox 98.2 F 87 16 128/81 98 09/16/18 15:56 09/16/18 16:26 09/16/18 16:26 09/16/18 16:26 09/16/18 16:26 Internal Med - H&P Results - Labs CBC & Chem 7: 09/16/18 15:50 09/16/18 15:50 Labs: Short CBC 09/16/18 Range/Units 15:50 WBC 4.4 (4.3-11.1) K/mcL Hgb 14.6 (11.5-15.4) g/dL Hct 42.4 (35.3-44.9) % Plt Count 165 (140-400) K/mcL BMP 09/16/18 15:50 Sodium 136 Potassium 3.7 Chloride 101 Carbon Dioxide 27 BUN 16 Creatinine 0.91 Glucose 176 H Calcium 9.1 Cardiac Enzymes 09/16/18 Range/Units 15:50 Troponin I < 0.03 (< 0.04) ng/mL - Impressions ITS Impressions Head CT 09/16/18 15:35 IMPRESSION: Subacute infarct left occipital lobe. Mild progression of the left MCA distribution infarct, most which is subacute to chronic MRI could be beneficial for further characterization. Critical results were called by Dr. Ky Carl to Dr Bai on 09/16/2018 at 16:31. D/ / Ky Carl / Ky Carl Interpreting Provider: Ky Carl - Time Spent With Patient Total time spent is greater than 50% in coordination of care (as documented) at patient's floor/unit and/or counseling patient: - Attending Attestation I examined this patient and my medical decision-making was reviewed with the Resident Physician dr Wall. I agree with the documented findings, disposition and treatment plan as described except to the extent set forth below. Ms Cuadra is admitted with confirmed subacute CVA with hx of prior multiple CVAs. She has pmhx DM, HLD, HTN, Tobacco dependence, CVA early March 2018 with extension late March 2018. MRI March 2018 with multiple acute left cerebral hemispheres and known L ICA thrombus. Known left total ICA occlusion. She presented to ED with 3-4 days of bifrontal headache and speech disturbance. Her last known well is well without window for tpa. No stroke alert called. ED contacted Dr Wilson and I have discussed with him as well. Will obtain MRI/A of head. ED course included 325 mg asa. Awake, tearful, speech disturbance is noted to be trouble with word finding and with slurred speech from baseline. she adamantly denies any swallowing difficulty and has been eating regular meals without coughing or choking. Bifraontal headache, no n/v. + vision changes though she cannot describe exactly how. ED nursing declined to partake in med reconciliation while pt in Emergency Room. I personally called steve with permission of patient to obtain meds and sat with pillowcase cleaner to do med rec to ensure accuracy at time of admission. This resulted in important new information that pt has not been filling her plavix or statin since april as prescribed. gen- alert, awake,appears stated age eyes- pupils equal round , eom intact cv- reg rate and rhythm, normal s1,s2, no murmurs appreciated, no le edema lungs- ctabl, no wheezing, rhonchi or crackles abd- soft, non tender, non distended, + bs neuro- AAOx3, no facial droop, abnormality on CN exam includes + dysarthria, suspected right hemianopsia but pt has very hard time not moving her eyes to more easily see my fingers , strength 5/5 throughout all ext, no pronator drift, sensation intact to light touch throughout all ext, no neglect noted Expressive Aphasia + Dysarthria- rule out acute CVA Confirmed subacute L Occipital CVA and mild progression L MCA sub acute to chronic CVA 03/2018 L Cerebral infarcts, L ICA thrombus -outside window for tpa, last known well 3-4 days -ED consulted Neuro, no further interventions, I d/w Dr Wilson as well, cont home meds, stroke work up and obtain MRI/A of head, she may remain under care here at [place] and he will see in AM -stroke protocol ordered -already received asa, cont statin and plavix (has not been taking) -permissive HTN, hold home lisinopril -check echo, last CUS in march- getting MRA neck DM- SSI at this time, no longer taking insulin at home, awaiting bedside swallow eval and currently npo HTN- permissive at this time- sbp 120-160 / dbp 80-90, prn labetalol sbp >220 further diagnoses and plan as noted by resident
[2018-09-16] MEDS ORDERED: Naloxone 0.4 MG/ML INJ IVP PRN (17:27)
[2018-09-16] MEDS ORDERED: *HR* Dextrose 50 % in Water (Syg) 50 ML SYRINGE IVP PRN (17:33)
[2018-09-16] MEDS ORDERED: D5% in Water 1,000 ML IVC PRN (17:33)
[2018-09-16] MEDS ORDERED: Dextrose Gel 15 GM/37.5 ML TUBE PO PRN ×2 (17:33)
--- NOTE | 2018-09-16 17:49 | Event Note ---
Date of Encounter: 09/16/18 Time of Encounter: 18:15 to serve as attending attestation pending completion of resident H&P I examined this patient and my medical decision-making was reviewed with the Resident Physician dr Wall. I agree with the documented findings, disposition and treatment plan as described except to the extent set forth below. Ms Cuadra is admitted with confirmed subacute CVA with hx of prior multiple CVAs. She has pmhx DM, HLD, HTN, Tobacco dependence, CVA early March 2018 with extension late March 2018. MRI March 2018 with multiple acute left cerebral hemispheres and known L ICA thrombus. Known left total ICA occlusion. She presented to ED with 3-4 days of bifrontal headache and speech disturbance. Her last known well is well without window for tpa. No stroke alert called. ED contacted Dr Wilson and I have discussed with him as well. Will obtain MRI/A of head. ED course included 325 mg asa. Awake, tearful, speech disturbance is noted to be trouble with word finding and with slurred speech from baseline. she adamantly denies any swallowing difficulty and has been eating regular meals without coughing or choking. Bifraontal headache, no n/v. + vision changes though she cannot describe exactly how. ED nursing declined to partake in med reconciliation while pt in Emergency Room. I personally called [facility] with permission of patient to obtain meds and sat with case repairer to do med rec to ensure accuracy at time of admission. This resulted in important new information that pt has not been filling her plavix or statin since april as prescribed. gen- alert, awake,appears stated age eyes- pupils equal round , eom intact cv- reg rate and rhythm, normal s1,s2, no murmurs appreciated, no le edema lungs- ctabl, no wheezing, rhonchi or crackles abd- soft, non tender, non distended, + bs neuro- AAOx3, no facial droop, abnormality on CN exam includes + dysarthria, suspected right hemianopsia but pt has very hard time not moving her eyes to more easily see my fingers , strength 5/5 throughout all ext, no pronator drift, sensation intact to light touch throughout all ext, no neglect noted Expressive Aphasia + Dysarthria- rule out acute CVA Confirmed subacute L Occipital CVA and mild progression L MCA sub acute to chronic CVA 03/2018 L Cerebral infarcts, L ICA thrombus -outside window for tpa, last known well 3-4 days -ED consulted Neuro, no further interventions, I d/w Dr Wilson as well, cont home meds, stroke work up and obtain MRI/A of head, she may remain under care here at [place] and he will see in AM -stroke protocol ordered -already received asa, cont statin and plavix (has not been taking) -permissive HTN, hold home lisinopril -check echo, last CUS in march- getting MRA neck DM- SSI at this time, no longer taking insulin at home, awaiting bedside swallow eval and currently npo HTN- permissive at this time- sbp 120-160 / dbp 80-90, prn labetalol sbp >220 further diagnoses and plan as noted by resident
[2018-09-16] MEDS ORDERED: Gadolinium Contrast Agent (WT Based) IV PRN (18:22)
[2018-09-16] MEDS ORDERED: *HR* Labetalol 20 MG/4 ML SYRINGE IVP PRN (18:27)
[2018-09-16] MEDS: Insulin LISPRO 300 UNITS/3 ML VIAL SQ SCH (23:19)
--- NOTE | 2018-09-17 00:18 | Event Note ---
Date of Encounter: 09/17/18 Time of Encounter: 00:14 Called exceptional children teacher assistant neurology Dr Wilson to update on MRI MRA findings as shown below. Assessed patient prior to call, no new complaints or deficits noted from previous documentation. No new recommendations at this time from neurology, they will see patient in a.m. "Left MCA occluded at its origin. Signal dropout short-segment proximal intracranial right ICA concerning for focal occlusion or high-grade stenosis with reconstitution from [id number]-Sozslx collaterals distally. This was apparently present on prior CTA however. Occluded left SECURITY ESCORT ( origin), new since prior study. Occluded left MCA, previously seen as severely reduced caliber on prior CTA. Acute infarct lateral portion of left occipital lobe, sparing mesial occipital lobe, and involving mesial portion left temporal lobe (possibly cortical border and internal zone territory). Chronic left MCA territory infarct. No apparent intracranial hemorrhage."
[2018-09-17 05:17] LABS: Basophils % 0.8 %; Eosinophils # 0.1 K/mcL (0.0-0.6); Eosinophils % 2.7 %; Hematocrit 39.3 % (35.3-44.9); Hemoglobin 13.4 g/dL (11.5-15.4); Immature Granulocytes % 0.6 % (0-4); Lymphocytes # 1.7 K/mcL (0.6-4.6); Lymphocytes % 36.6 %; Mean Corpuscular HGB Conc 34.1 g/dL (31.6-35.5); Mean Corpuscular Hemoglobin 28.6 pg (28.0-33.3); Mean Corpuscular Volume 83.8 fL (83.0-100.0); Mean Platelet Volume 10.7 fL (9.4-12.4); Monocytes # 0.5 K/mcL (0.0-1.3); Monocytes % 11.4 %; Neutrophils # 2.3 K/mcL (1.6-8.9); Platelet Count 148 K/mcL (140-400); Red Blood Count 4.69 M/mcL (3.82-4.97); Red Cell Distribution Width 13.1 % (11.5-14.5); Segmented Neutrophils % 47.9 %
[2018-09-17 05:25] LABS: Prothrombin Time 11.6 Seconds (9.4-12.1)
[2018-09-17 05:36] LABS: BUN/Creatinine Ratio 24 (6-26); Blood Urea Nitrogen 22 mg/dL (8-23); Calcium 9.2 mg/dL (8.6-10.3); Carbon Dioxide 26 mEq/L (23-29); Chloride 102 mEq/L (98-107); Chol/HDL Ratio 7.4 (0-4.9); Cholesterol 178 mg/dL (< 200); Glucose 126 mg/dL (70-105); HDL Cholesterol 24 mg/dL (40-59); LDL Cholesterol,Calculated 100 mg/dL (0-99); Osmolality,Calculated 285 (280-300); Potassium 3.5 mEq/L (3.5-5.1); Sodium 135 mEq/L (136-145); Triglycerides 269 mg/dL (< 150); eGFR For Non-African Americans > 60 (> 60)
[2018-09-17 05:38] LABS: Alanine Aminotransferase 7 Units/L (7-52); Albumin 3.7 g/dL (3.5-5.7); Albumin/Globulin Ratio 1.4 (1.1-2.2); Alkaline Phosphatase 68 Units/L (34-104); Aspartate Amino Transferase 13 Units/L (13-39); BUN/Creatinine Ratio 25 (6-26); Bilirubin,Total 0.6 mg/dL (0.3-1.0); Blood Urea Nitrogen 21 mg/dL (8-23); Calcium 9.1 mg/dL (8.6-10.3); Carbon Dioxide 24 mEq/L (23-29); Chloride 103 mEq/L (98-107); Chol/HDL Ratio 7.3 (0-4.9); Cholesterol 176 mg/dL (< 200); Globulin 2.7 g/dL (2.4-3.5); Glucose 126 mg/dL (70-105); HDL Cholesterol 24 mg/dL (40-59); LDL Cholesterol,Calculated 98 mg/dL (0-99); Osmolality,Calculated 287 (280-300); Potassium 3.5 mEq/L (3.5-5.1); Sodium 136 mEq/L (136-145); Total Protein 6.4 g/dL (6.4-8.9); Triglycerides 268 mg/dL (< 150); Troponin I < 0.03 ng/mL (< 0.04); eGFR For Non-African Americans > 60 (> 60)
[2018-09-17 08:51] LABS: Estimated Average Glucose 123 mg/dl; Hemoglobin A1C 5.9 %
--- NOTE | 2018-09-17 08:55 | Internal Med Progress Note ---
Hospitalist Progress Note - Encounter Date of Encounter: 09/17/18 Time of Encounter: 09:15 - Subjective Interval History: awake, speech remains unchanged from presentation. she is eating and drinking without coughing or choking. denies any weakness, numbness, tingling. no further vision changes. She had a tick found on her left upper back last night by [facility] staff and it was removed and sent to lab. 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 uknown how long would have been there. explained what tick rash can look like and she denies that or any other rash to her knowledge at any time. educated on dxy treatment with one tie dose and she is agreeable as well as that her pcp should be informed in follow up and for any signs of lyme disease in the future - Exam Vitals: Temp Pulse Resp BP Pulse Ox 97.8 F 60 14 175/89 96 09/17/18 06:39 09/17/18 06:39 09/17/18 06:39 09/17/18 06:39 09/17/18 06:39 Exam: gen- alert, awake,appears stated age eyes- pupils equal round , eom intact cv- reg rate and rhythm, normal s1,s2 lungs- ctabl, no wheezing, rhonchi or crackles skin- left back tick site with band aid in place, cannot appreciate any remnant part of tick, mildly erythematous around parimeter, no extension, complete skin check preformed and no erythmea migrans neuro- AAOx3, no facial droop, abnormality on CN exam includes + dysarthria, strength 5/5 throughout all ext, no pronator drift, sensation intact to light touch throughout all ext, no neglect - Summary of Assessment and Plan Summary of Assessment and Plan: Expressive Aphasia + Dysarthria- Acute Left Occipital CVA inlcuding part of Left temporal lobe chronic Occluded L MCA and infarct chronic MARTHA focal occlusion v high grade stenosis with collaterals L ARTIST BLACKSMITH occlusion new MRI/A head/neck as above echo normal EF, mild DD, normal valves, interatrial septum not well visualized outside window for tpa, 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 -Dr Wilson following -stroke protocol ordered -asa, statin and plavix (suspect has not been taking since April per her outpt pharmacy refills but not filled since april) -permissive HTN, hold home lisinopril 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 DM- SSI at this time, no longer taking insulin at home, HTN- permissive at this time-at goal, prn labetalol sbp >220 Tick Bite- tick sent to our lab, doxy dose given vte ppx scds, ambulate Internal Medicine: Result - Labs CBC & Chem 7: 09/17/18 04:22 09/17/18 04:22 Labs: Short CBC 09/16/18 09/17/18 Range/Units 15:50 04:22 WBC 4.4 4.7 (4.3-11.1) K/mcL Hgb 14.6 13.4 (11.5-15.4) g/dL Hct 42.4 39.3 (35.3-44.9) % Plt Count 165 148 (140-400) K/mcL Neutrophils # 2.3 (1.6-8.9) K/mcL BMP 09/16/18 09/17/18 09/17/18 15:50 04:22 04:22 Sodium 136 135 L 136 Potassium 3.7 3.5 3.5 Chloride 101 102 103 Carbon Dioxide 27 26 24 BUN 16 22 21 Creatinine 0.91 0.90 0.85 Glucose 176 H 126 H 126 H Calcium 9.1 9.2 9.1 Cardiac Enzymes 09/16/18 09/17/18 Range/Units 15:50 04:22 Troponin I < 0.03 < 0.03 (< 0.04) ng/mL Liver Function 09/17/18 Range/Units 04:22 Total Bilirubin 0.6 (0.3-1.0) mg/dL AST 13 (13-39) Units/L ALT 7 (7-52) Units/L Alkaline Phosphatase 68 (34-104) Units/L Albumin 3.7 (3.5-5.7) g/dL - ABG Interpretation ABG results: PT/INR, D-dimer PT 11.6 Seconds (9.4-12.1) 09/17/18 04:22 - Impressions Impressions Head CT 09/16/18 15:35 IMPRESSION: Subacute infarct left occipital lobe. Mild progression of the left MCA distribution infarct, most which is subacute to chronic MRI could be beneficial for further characterization. Critical results were called by Dr. Ky Carl to Dr Bai on 09/16/2018 at 16:31. D/ / Ky Carl / Ky Carl Interpreting Provider: Ky Carl Head MRA 09/16/18 18:22 IMPRESSION: Left MCA occluded at its origin. Signal dropout short-segment proximal intracranial right ICA concerning for focal occlusion or high-grade stenosis with reconstitution from [id number]-Ewnlij collaterals distally. This was apparently present on prior CTA however. Occluded left ARTIST BLACKSMITH ( origin), new since prior study. Occluded left MCA, previously seen as severely reduced caliber on prior CTA. Acute infarct lateral portion of left occipital lobe, sparing mesial occipital lobe, and involving mesial portion left temporal lobe (possibly cortical border and internal zone territory). Chronic left MCA territory infarct. No apparent intracranial hemorrhage. The findings were sent to the Radiology Results Communication [facility] at 10:58 pm on 09/16/2018to be communicated to a licensed caregiver. D/ / Sebastien Mcadams MD / Sebastien Mcadams MD Interpreting Provider: Sebastien Mcadams MD Neck MRA 09/16/18 18:22 IMPRESSION: Left MCA occluded at its origin. Signal dropout short-segment proximal intracranial right ICA concerning for focal occlusion or high-grade stenosis with reconstitution from knabsv-wz-Ybrowx collaterals distally. This was apparently present on prior CTA however. Occluded left ARTIST BLACKSMITH ( origin), new since prior study. Occluded left MCA, previously seen as severely reduced caliber on prior CTA. Acute infarct lateral portion of left occipital lobe, sparing mesial occipital lobe, and involving mesial portion left temporal lobe (possibly cortical border and internal zone territory). Chronic left MCA territory infarct. No apparent intracranial hemorrhage. The findings were sent to the Radiology Results Communication Center at 10:58 pm on 09/16/2018to be communicated to a licensed caregiver. D/ / Sebastien Mcadams MD / Sebastien Mcadams MD Interpreting Provider: Sebastien Mcadams MD Brain MRI 09/16/18 18:24 IMPRESSION: Left MCA occluded at its origin. Signal dropout short-segment proximal intracranial right ICA concerning for focal occlusion or high-grade stenosis with reconstitution from mlbztn-[id number]-Neurcu collaterals distally. This was apparently present on prior CTA however. Occluded left ARTIST BLACKSMITH ( origin), new since prior study. Occluded left MCA, previously seen as severely reduced caliber on prior CTA. Acute infarct lateral portion of left occipital lobe, sparing mesial occipital lobe, and involving mesial portion left temporal lobe (possibly cortical border and internal zone territory). Chronic left MCA territory infarct. No apparent intracranial hemorrhage. The findings were sent to the Radiology Results Communication Center at 10:58 pm on 09/16/2018to be communicated to a licensed caregiver. D/ / Sebastien Mcadams MD / Sebastien Mcadams MD Interpreting Provider: Sebastien Mcadams MD Consult Discharge Plan - Plan Referrals: Ramone Cee DO [Primary Care Provider] -
[2018-09-17] MEDS ORDERED: Doxycycline 100 MG CAPSULE PO ONE (09:00)
[2018-09-17] MEDS: Insulin LISPRO 300 UNITS/3 ML VIAL SQ SCH ×4 (09:01→21:17)
[2018-09-17] MEDS: Aspirin 81 MG TAB.CHEW PO SCH (09:02)
--- NOTE | 2018-09-17 10:46 | Neurology - Consult Note ---
Date of Encounter: 09/17/18 Time of Encounter: 10:45 Assessment and Plan (1) CVA (cerebral vascular accident) Current Visit: Yes Status: Acute Patient with multiple risk factors for CVA, with recent CVA ( during March/2018) likely secondary to left ICA occlusion, on aspirin and plavix dual antiplate therapy who developed another ischemic infarct, this time also involving left side of brain but to the occipital lobe, corresponding to new finding of left IRRIGATOR OVERHEAD occlusion. It is worth noting the the left IRRIGATOR OVERHEAD was reported to be of origin from left internal carotid artery therefore it is likely that the current stroke is still the consequences of total left ICA occlusion that can be aggravated by reduced cerebral perfusion of any sort. Theoretically this could also be thromboembolic events from the tail of thrombus at the occluded left ICA. SO far it appears that the patient is of very high risk of cerebral mortality and morbidity due to recurrent stroke with multiple risk factors. However, This does not appear to be caused by embolic event. Please note that the patient has had trans-esophageal echocardiography performed during March/2018 and no cardiac source of emboli was identified. Therefore currently although it would be debatable whether the patient would benefit from anticoagulation therapy simply due to history of recurrent ischemic infarct while on dual antiplatelet therapy, but currently there is no strong indication for anticoagulation therapy. Please also note that the MRI of brain and neck reported short segment drop off of signal at the level of ophthalmic artery of the right ICA suggesting critical high-grade stenosis with reconstitution from [id number] collaterals distally, but this has been present during previous CTA of neck and head during 03/2018 admission. Therefore overall speaking unfortunately there would be not much additional therapies to add from neurology perspective, other than keeping her on Aspirin 81mg daily and plavix and continue statin therapy and pursue risk factor modification. Treatment of vascular headaches from acute posterior circulation stroke is empirical. Posterior circulation CVA have higher incidence of headaches during acute phase. Due to her severe carotid artery disease i would allow BP to be on the higher side during acute phase of stroke to avoid cerebral hyperperfusion. Neurological prognosis is worrisome in this particular case. Occlusion of ICA and occlusion of IRRIGATOR OVERHEAD all demand medical treatment only. Patient likely to experiencing right visual field loss. Driving should be avoided. Qualifiers: CVA mechanism: unspecified Qualified Code(s): I63.9 - Cerebral infarction, unspecified History of Present Illness Chief complaint: Headache, slurred speech and visual difficulty HPI: Ms. Cuadra is a 62 year old female with PMH significant for previous CVA involving the left MCA territory, known left ICA occlusion, HTN, uncontrolled DM, obesity, tobacco smoking, chronic migraine who developed acute onset of headache and slurred speech since the last few days prior to admission. Patient reports forehead headache for few days along with elevated BP. currently not in the room. Per medical records, the patient had stroke and was admitted twice during March/2018 due to left hemispheric infarct thought to be secondary to left ICA occlusion. First CVA occurred on 03/27/2019 and MRI of the brain showed acute infarct involving the left parietal lobe. CTA of neck showed left ICA total occlusion. Second admission on showed extension of left MCA infarct, in a borderzone fashion. She was found to have left ICA occlusion and she was transferred to [facility] in [facility] and she does not remember where she was transferred to. She was eventually discharged home and been doing well per her until few days ago when she developed frontal headache and slurred speech. Therefore she was brought her for further evaluation. She has been taking a combination of aspirn and plavix. Patient is seen at the bedside and she still has dysarthria but is able to repeat. She is unable to provide detailed prior history. She still has a headache at the frontal region. She has no significant focal weakness. She did not admit visual difficulty but upon visual field examination clearly she has right hemianopsia It is noted that during hospital stay during March/2018 she had full stroke work up including transesophageal echocardiography which showed normal LVEF, no valvular disease, no regional wall motion abnormality and no evidence of PFO or shunting. and no significant pathology involving the aortic arch. Patient also completed at the time CTA of neck and head, please refer to report for details. Patient was found to have left ICA total occlusion, but no IRRIGATOR OVERHEAD stenosis except origin of left IRRIGATOR OVERHEAD from ICA. Current MRI of brain completed and showed new cerebral ischemic infarct involving the left occipital lobe and also left parietal/occipital junction with a pattern suggesting borderzone infarct. Past Med Surg Social Fam HX - Past Medical History Medical history: CVA, diabetes, hyperlipidemia, hypertension, other Additional medical history: Slurred speech from previous CVA. Type II Diabetic Psychiatric history: no psych history - Past Surgical History Surgical History: , orthopedic, other Additional surgical history: right knee and left ankle. great toe amputated left foot - Social History Smoking Status: Current every day smoker Packs per day: 1/2 ppd Smokeless Tobacco Status: No Alcohol use: none Drug use: none - Family History Father Name: Cr Family Member Ethnicity: Non- Living Status: Age at : 68 Cause of : Stroke Hx Family Cardiac Disorders: No Hx Family Respiratory Disorders: No Hx Family Cancer: No Hx Family GI Disorders: No Hx Family Genitourinary Disorders: No Hx Family Endocrine Disorder: No Hx Family Musculoskeletal Disorders: No Hx Family Neuromuscular Disorders: Yes Hx Family Neurologic Disorders: No Hx Family HEENT Disorders: No Hx Family Autoimmune Disorders: No Hx Family Reproductive Disorders: No Daughter Adopted: No Hx Family Cardiac Disorders: Yes (hypertension) Mother Name: Venice Family Member Ethnicity: Non- Living Status: Age at : 80 Cause of : Stroke Hx Family Cardiac Disorders: No Hx Family Respiratory Disorders: No Hx Family Cancer: No Hx Family GI Disorders: No Hx Family Genitourinary Disorders: No Hx Family Endocrine Disorder: No Hx Family Musculoskeletal Disorders: No Hx Family Neuromuscular Disorders: No Hx Family Neurologic Disorders: Yes Hx Family HEENT Disorders: No Hx Family Autoimmune Disorders: No Hx Family Reproductive Disorders: No Hx Family Psychosocial Disorders: No Hx Family Medical Disorders: No Medications and Allergies Atorvastatin [Lipitor] 40 mg PO DAILY 03/28/18 [History] metFORMIN [Glucophage] 500 mg PO BIDWM 03/28/18 [History] Aspirin 81 mg PO DAILY 09/16/18 [History] Clopidogrel [Plavix] 75 mg PO DAILY 09/16/18 [History] Lisinopril [Zestril] 5 mg PO DAILY 09/16/18 [History] Allergy/AdvReac Type Severity Reaction Status Date / Time nabumetone [From Relafen] AdvReac Dizziness Verified 09/16/18 14:50 All Systems: The remainder of the systems were reviewed and are negative - Constitutional Constitutional ROS IM: headache(s) (yes), malaise (yes) - Eyes Eyes: right: blurred vision (right hemianopsia noted) - Nose, Mouth, Throat Nose, mouth and throat: disequilibrium (Yes), dizziness (yes), headache(s) (Yes) - Cardiovascular Cardiovascular ROS IM: chest pain (No), diaphoresis (No) - Respiratory Respiratory IM: cough (No), dyspnea (No ), hemoptysis (No) - Gastrointestinal Gastrointestinal: abdominal pain (No) - Genitourinary Genitourinary ROS: difficulty urinating (No), difficulty voiding (No) - Musculoskeletal Musculoskeletal ROS IM: abnormal gait (No) - Neurological Neurological ROS: abnormal gait (NO), abnormal hearing (No), abnormal movements (NO), abnormal speech (Yes), headache(s) (Yes) - Psychiatric Psychiatric general PM: abnormal sleep pattern (NO), auditory hallucinations (NO), behavioral changes (No), difficulty concentrating (Yes) - Endocrine Endocrine IM: change in body appearance (NO) - Hematologic/Lymphatic Hematologic/Lymphatic pediatric: easy bleeding (No) Physical Examination - Vital Signs Vital Signs: Initial Vital Signs Temp Pulse Resp BP Pulse Ox 98.2 F 113 16 168/90 97 09/16/18 14:48 09/16/18 14:48 09/16/18 14:48 09/16/18 14:48 09/16/18 14:48 - Constitutional General appearance: uncomfortable (Reporting headache) - Neurologic Sensorimotor examination: intact (Grossly intact) Detailed motor examination: grossly full strength in all extremities Motor examination - right side: 5/5: deltoids, biceps, triceps, wrist flexion, wrist extension, stiff leg derrick operator, hip flexors, tibialis Anterior, quadriceps, toe extension (EHL), plantarflexion Motor examination - left side: 5/5: deltoids, biceps, triceps, wrist flexion, wrist extension, hip flexors, stiff leg derrick operator, quadriceps, tibialis Anterior, toe extension (EHL), plantarflexion Detailed sensory examination: intact (Grossly intact, except slighly reduced hemiparesthesia to the right side) Posture: other (None) Reflex and gait examination: other (Gait is not assessed) Reflexes: Biceps: 2+, Triceps: 2+, Brachioradialis: 2+, Patella: 2+, Achilles: 2+ Mental Status Examination: awake, alert, oriented to person, oriented to place, oriented to time, follows commands appropriately, answers questions appropriately (Patient is dysarthric but able to repeat. There is a component of dyaphasia), opens eyes to voice, makes eye contact, follows simple commands Cranial nerve examination: PERRL, EOMI, visual oviedo intact (Shows right hemianopsia), corneal reflexes brisk symmetrically, sensory to face intact, mast ication intact, no facial asymmetry is present, no dysarthria, hearing is intact symmetrically, soft palate elevates bilaterally upon phonation, gag reflex intact, flexes SCM and trapezius muscles symmetrically with full power, tongue protrudes midline, no atrophy or facial fasiculations present Cerebellar examination: no dysmetria (reduced dexterity to the right arm) Results - Laboratory Findings CBC and BMP: 09/17/18 04:22 09/17/18 04:22 Abnormal lab findings: Abnormal lab results RBC 5.09 M/mcL (3.82-4.97) H 09/16/18 15:50 Sodium 135 mEq/L (136-145) L 09/17/18 04:22 Glucose 126 mg/dL (70-105) H 09/17/18 04:22 Glucose 126 mg/dL (70-105) H 09/17/18 04:22 5.9 % (-5.6) H 09/17/18 04:22 Triglycerides 268 mg/dL (< 150) H 09/17/18 04:22 Triglycerides 269 mg/dL (< 150) H 09/17/18 04:22 LDL Cholesterol, Calc 100 mg/dL (0-99) H 09/17/18 04:22 VLDL Cholesterol, Calc 54 mg/dL (< 31) H 09/17/18 04:22 VLDL Cholesterol, Calc 54 mg/dL (< 31) H 09/17/18 04:22 24 mg/dL (40-59) L 09/17/18 04:22 24 mg/dL (40-59) L 09/17/18 04:22 7.3 (0-4.9) H 09/17/18 04:22 7.4 (0-4.9) H 09/17/18 04:22 - Diagnostic Findings Additional findings: EXAMINATION: CT OF THE HEAD WITHOUT CONTRAST 09/16/2018 4:18 pm TECHNIQUE: CT of the head was performed without the administration of intravenous contrast. Dose modulation, iterative reconstruction, and/or weight based adjustment of the mA/kV was utilized to reduce the radiation dose to as low as reasonably achievable. COMPARISON: CT head 04/15/2018 HISTORY: ORDERING SYSTEM PROVIDED HISTORY: CVA FINDINGS: BRAIN/VENTRICLES: There is no acute intracranial hemorrhage, mass effect or midline shift. No abnormal extra-axial fluid collection. The barrientos-white differentiation is maintained without evidence of an acute infarct. There is no evidence of hydrocephalus. There of evolving chronic encephalomalacia and gliosis left MCA distribution, findings have mildly progressed from prior examination which may suggest progression of the infarct.. There is however a new left occipital lobe/posterior temporal lobe infarct. ORBITS: The visualized portion of the orbits demonstrate no acute abnormality. SINUSES: The visualized paranasal sinuses and mastoid air cells demonstrate no acute abnormality. SOFT TISSUES/SKULL: No acute abnormality of the visualized skull or soft tissues. CT/CT head/brain wo con IMPRESSION: Subacute infarct left occipital lobe. Mild progression of the left MCA distribution infarct, most which is subacute to chronic MRI could be beneficial for further characterization. Critical results were called by Dr. Ky Carl to Dr Bai on 09/16/2018 at 16:31. D/ / Ky Carl / Ky Carl Interpreting Provider: Ky Carl OF THE HEAD WITHOUT CONTRAST; MRA OF THE NECK WITHOUT CONTRAST; MRI OF THE BRAIN WITHOUT CONTRAST 09/16/2018 10:38 pm: TECHNIQUE: MRA of the head was performed utilizing [id number] imaging with MIP images. No intravenous contrast was administered.; Multiplanar multisequence MRA of the neck was performed without the administration of intravenous contrast. Stenosis of the internal carotid arteries measured using NASCET criteria.; Multiplanar multisequence MRI of the brain was performed without the administration of intravenous contrast. COMPARISON: CTA head and neck 03/27/2018. HISTORY: ORDERING SYSTEM PROVIDED HISTORY: r/o cva FINDINGS: MRI BRAIN: INTRACRANIAL STRUCTURES/VENTRICLES: There is acute infarct indicating restricted diffusion in the left occipital lobe and mesial temporal lobe with additional foci in the posterior temporal lobe. Old infarct left MCA territory. No mass effect or midline shift. No evidence of an acute intracranial hemorrhage. The ventricles and sulci are normal in size and configuration. The sellar/suprasellar regions appear unremarkable. ORBITS: The visualized portion of the orbits demonstrate no acute abnormality. SINUSES: The visualized paranasal sinuses and mastoid air cells are well aerated. BONES/SOFT TISSUES: The bone marrow signal intensity appears normal. The soft tissues demonstrate no acute abnormality. MRA NECK: AORTIC ARCH/GREAT VESSELS: There is a normal branch pattern of the aortic arch. No significant stenosis is seen of the innominate artery or subclavian arteries. CAROTID ARTERIES: The common carotid arteries are normal in appearance without evidence of a flow limiting stenosis. Left MCA is occluded at its origin. Right ICA is normal in appearance without evidence of a flow limiting stenosis by NASCET criteria. VERTEBRAL ARTERIES: The vertebral arteries both arise from the subclavian arteries and are normal in caliber without evidence of flow limiting stenosis. MRA HEAD: ANTERIOR CIRCULATION: On the right, the intracranial ICA loses signal at the level of the ophthalmic artery and reconstitutes in the paraclinoid segment. MCA, BALDEMAR and their branches are patent. On the left, there is no flow in the intracranial ICA. No significant flow in MCA or its branches. BALDEMAR is patent. POSTERIOR CIRCULATION: Intracranial vertebral arteries and basilar artery are patent without stenosis. Right posterior cerebral artery is patent. Left IRRIGATOR OVERHEAD is apparently occluded about a cm distal to its origin. MR/MR angio head wo con IMPRESSION: Left MCA occluded at its origin. Signal dropout short-segment proximal intracranial right ICA concerning for focal occlusion or high-grade stenosis with reconstitution from [id number] collaterals distally. This was apparently present on prior CTA however. Occluded left IRRIGATOR OVERHEAD ( origin), new since prior study. Occluded left MCA, previously seen as severely reduced caliber on prior CTA. Acute infarct lateral portion of left occipital lobe, sparing mesial occipital lobe, and involving mesial portion left temporal lobe (possibly cortical border and internal zone territory). Chronic left MCA territory infarct. No apparent intracranial hemorrhage. The findings were sent to the [facility]iology [facility] at 10:58 pm on 09/16/2018to be communicated to a licensed caregiver. D/ / Sebastien Mcadams MD / Sebastien Mcadams MD Interpreting Provider: Sebastien Mcadams MD Consult Discharge Plan - Plan Referrals: Ramone Cee DO [Primary Care Provider] -
[2018-09-17] MEDS: Acetaminophen 325 MG TABLET PO PRN ×2 (12:00→21:16)
[2018-09-17] MEDS ORDERED: Acetaminophen IV 1,000 MG/100 ML INFUS..BTL IVPB ONE (16:42)
[2018-09-18] MEDS: Acetaminophen 325 MG TABLET PO PRN ×3 (05:26→20:22)
--- NOTE | 2018-09-18 08:39 | Internal Med Progress Note ---
<Callie Martinez - Last Filed: 09/18/18 14:39> Hospitalist Progress Note - Encounter Date of Encounter: 09/18/18 - Exam Vitals: Temp Pulse Resp BP Pulse Ox 97.7 F 69 17 146/86 97 09/18/18 11:18 09/18/18 11:18 09/18/18 11:18 09/18/18 11:18 09/18/18 11:18 - Time Spent with Patient Total time spent is greater than 50% in coordination of care (as documented) at patient's floor/unit and/or counseling patient: Internal Medicine: Result - Labs CBC & Chem 7: 09/17/18 04:22 09/17/18 04:22 - ABG Interpretation ABG results: PT/INR, D-dimer PT 11.6 Seconds (9.4-12.1) 09/17/18 04:22 Consult Discharge Plan - Plan Referrals: Ramone Cee DO [Primary Care Provider] - - Attending Attestation I examined this patient and my medical decision-making was reviewed with the [facility] Physician Dr Wall. I agree with the documented findings, disposition and treatment plan as described except to the extent set forth below. Mrs Cuadra is admitted with acute CVA awake, alert, no changes in speech, no weakness or acute changes. 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 -Dr Wilson following -asa, statin and plavix (suspect has not been taking since April per her outpt pharmacy refills but not filled since april) -permissive HTN, hold home lisinopril- should be able ot egin to control bp in am, will fu neuro recs pt/ot- 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 She states that her headache has improved, but during interview, slurred speech was still noted. Appears to be unchanged from previous assessment. Speech evaluation is pending. Neurology is also following. We will continue with permissive hypertension until tomorrow. - Exam Vitals: Temp Pulse Resp BP Pulse Ox 97.5 F L 61 14 173/76 98 09/18/18 06:38 09/18/18 06:38 09/18/18 06:38 09/18/18 06:38 09/18/18 06:38 Exam: General: A&O X3, slurred speech Head: atraumatic, normocephalic Eye: PERRL, EOMI, conjuntiva pink, sclera anicteric; visual field deficits in right upper quadrant bilaterally Neck: Supple, trachea midline; No lymphadenopathy Respiratory: CTAB. No accessory muscle use, wheezes, rales, or rhonchi Cardiovascular: RRR, +S1, +S2; no murmurs, rubs, gallops Abdomen: Soft, nontender Extremities: warm, radial pulses palpable and symmetrical Neurological: CN II-XII intact Psychiatric: Normal affect, normal mood Skin: Dry, intact - Assessment and Plan (1) CVA (cerebral vascular accident) Current Visit: Yes Status: Acute Assessment and Plan: - Presented with bifrontal headache and dysarthria starting 3-4 days prior to presentation - Patient had a prior CVA several months ago - CT scan of the head: Subacute infarct and left occipital lobe, mild progression of left MCA distribution infarct, subacute to chronic - Patient given aspirin 325 mg and emergency department - Normally takes an aspirin and statin at home - Neurology was consulted from the emergency chief librarian music department and neck MRA 09/16 demonstrated the following: - L MCA occluded at origin. - Occluded L FIELD SPEC ( origin), new since prior study. - Occluded L MCA, previously seen as severely reduced caliber on prior CTA - Signal dropout short-segment proximal intracranial R ICA concerning for focal occlusion or high-grade stenosis with reconstitution from - Acute infarct lateral portion of left occipital lobe, sparing mesial occipital lobe, and involving mesial portion left temporal lobe (possibly cortical border and internal zone territory); Chronic L MCA territory infarct TTE: Normal EF, mild diastolic dysfunction Plan: - Medical management per the recommendations of neurology: ASA, Statin, Plavix - Permissive HTN; holding home Lisinopril; PRN labetalol for SBP > 220 - Speech therapy consulted - Stroke precautions (2) HTN (hypertension) Current Visit: No Status: Chronic Assessment and Plan: - Patient has a known history of hypertension - Presented with a blood pressure of 168/90 Plan: - Allow for permissive hypertension - PRN labetalol for SBP > 220 (3) HLD (hyperlipidemia) Current Visit: No Status: Chronic Assessment and Plan: - Continue statin (4) Diabetes Current Visit: Yes Status: Acute Assessment and Plan: - Sliding scale insulin - Time Spent with Patient Total time spent is greater than 50% in coordination of care (as documented) at patient's floor/unit and/or counseling patient: Internal Medicine: Result - Labs CBC & Chem 7: 09/17/18 04:22 09/17/18 04:22 - ABG Interpretation ABG results: PT/INR, D-dimer PT 11.6 Seconds (9.4-12.1) 09/17/18 04:22 - Impressions Impressions Echocardiogram 09/16/18 17:29 Impressions: LVEF 60-65%. Mild concentric left ventricular hypertrophy. Mild left ventricular diastolic dysfunction. Normal right ventricular structure and function. No significant valvular dysfunction. No evidence of pulmonary hypertension. Interatrial septum not well evaluated due to lack of IV access. Left Ventricular Wall Motion: Rest Echo Findings All wall segments showed normal motion. Findings: Study Quality * Technically adequate exam. ECG Findings * Normal sinus rhythm. Left Ventricle * LVEF 60-65%. * Normal LV chamber and systolic function. * Mild concentric left ventricular hypertrophy. * Mild left ventricular diastolic dysfunction. Right Ventricle * Normal right ventricular structure and function. Left Atrium * Normal left atrial size. Right Atrium * Normal right atrial size. Interatrial Septum * Interatrial septum not well evaluated due to lack of IV access. Aortic Valve * Trileaflet aortic valve. * Mildly calcified aortic valve leaflets. * Trace aortic regurgitation. * No aortic stenosis. Mitral Valve * Normal mitral valve structure. * No mitral stenosis. * Trace mitral regurgitation. Tricuspid Valve * Normal tricuspid valve function. * No tricuspid stenosis. * Trace tricuspid regurgitation. * Unable to estimate RVSP due to lack of TR jet. * No evidence of pulmonary hypertension. * Estimated RA pressure is 3 mmHg. Pulmonic Valve * Pulmonic valve is not well visualized. * No pulmonic stenosis. * No pulmonic regurgitation. Aorta * Normally sized aortic root. Pericardium * The pericardium appears normal. IVC * The IVC is not dilated. * > 50% respiratory change <Hebert Wall - Last Filed: 09/18/18 15:30> (1) CVA (cerebral vascular accident) Qualifiers: CVA mechanism: unspecified Qualified Code(s): I63.9 - Cerebral infarction, unspecified (2) HTN (hypertension) Qualifiers: Hypertension type: essential hypertension Qualified Code(s): I10 - Essential (primary) hypertension (3) HLD (hyperlipidemia) Qualifiers: Hyperlipidemia type: unspecified Qualified Code(s): E78.5 - Hyperlipidemia, unspecified (4) Diabetes Qualifiers: Qualified Code(s): E11.9 - Type 2 diabetes mellitus without complications
[2018-09-18] MEDS: Aspirin 81 MG TAB.CHEW PO SCH (09:24)
[2018-09-18] MEDS: Insulin LISPRO 300 UNITS/3 ML VIAL SQ SCH ×4 (09:24→20:27)
--- NOTE | 2018-09-18 11:32 | Neurology Progress Note ---
Date of Encounter: 09/18/18 Time of Encounter: 11:30 Assessment and Plan (1) CVA (cerebral vascular accident) Current Visit: Yes Status: Acute Qualifiers: CVA mechanism: unspecified Qualified Code(s): I63.9 - Cerebral infarction, unspecified Subjective Principal diagnosis: CVA Interval history: Patient seen and examined. Patient still reports frontal headache but no nausea and vitals are stable. Still has rather significant visual deficits to right visual field. No focal weakness. Overall speaking symptoms are stable and speech appears improved. 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 Objective - Constitutional Vitals: Temp Pulse Resp BP Pulse Ox 97.7 F 69 17 146/86 97 09/18/18 11:18 09/18/18 11:18 09/18/18 11:18 09/18/18 11:18 09/18/18 11:18 - Neurological Exam Sensorimotor examination: Present: intact (Grossly intact) Motor Examination: Present: grossly full strength in all extremities Motor examination - left side: 5/5: deltoids, biceps, triceps, wrist flexion, wrist extension, hip flexors, sailboat captain, quadriceps, tibialis Anterior, toe extension (EHL), plantarflexion Sensation intact: Present: intact (Grossly intact, except slighly reduced hemiparesthesia to the right side) Posture: Present: other (None) Reflex and gait examination: other (Gait is not assessed) Mental Status Examination: Present: awake, alert, oriented to person, oriented to place, oriented to time, follows commands appropriately, answers questions appropriately (Patient is dysarthric but able to repeat. There is a component of dyaphasia), opens eyes to voice, makes eye contact, follows simple commands Cranial nerve examination: Present: PERRL, EOMI, visual oviedo intact (Shows right hemianopsia), corneal reflexes brisk symmetrically, sensory to face intact, mastication intact, no facial asymmetry is present, no dysarthria, hearing is intact symmetrically, soft palate elevates bilaterally upon phonation, gag reflex intact, flexes SCM and trapezius muscles symmetrically with full power, tongue protrudes midline, no atrophy or facial fasiculations present Cerebellar examination: Present: no dysmetria (reduced dexterity to the right arm) Results - Laboratory Findings CBC and BMP: 09/17/18 04:22 09/17/18 04:22 Abnormal lab findings: Abnormal lab results RBC 5.09 M/mcL (3.82-4.97) H 09/16/18 15:50 Sodium 135 mEq/L (136-145) L 09/17/18 04:22 Glucose 126 mg/dL (70-105) H 09/17/18 04:22 Glucose 126 mg/dL (70-105) H 09/17/18 04:22 POC Glucose 147 mg/dL (70-99) H 09/17/18 19:13 5.9 % (-5.6) H 09/17/18 04:22 Triglycerides 268 mg/dL (< 150) H 09/17/18 04:22 Triglycerides 269 mg/dL (< 150) H 09/17/18 04:22 LDL Cholesterol, Calc 100 mg/dL (0-99) H 09/17/18 04:22 VLDL Cholesterol, Calc 54 mg/dL (< 31) H 09/17/18 04:22 VLDL Cholesterol, Calc 54 mg/dL (< 31) H 09/17/18 04:22 24 mg/dL (40-59) L 09/17/18 04:22 24 mg/dL (40-59) L 09/17/18 04:22 7.3 (0-4.9) H 09/17/18 04:22 7.4 (0-4.9) H 09/17/18 04:22 Consult Discharge Plan - Plan Referrals: Ramone Cee DO [Primary Care Provider] -
--- NOTE | 2018-09-19 08:09 | Internal Med Progress Note ---
Date of Encounter: 09/19/18 - Constitutional Vitals: Temp Pulse Resp BP Pulse Ox 98.1 F 61 18 173/90 97 09/19/18 07:35 09/19/18 07:35 09/19/18 07:35 09/19/18 07:35 09/19/18 07:35 Internal Medicine: Result - Labs CBC & Chem 7: 09/17/18 04:22 09/17/18 04:22 - ABG Interpretation ABG results: PT/INR, D-dimer PT 11.6 Seconds (9.4-12.1) 09/17/18 04:22 Consult Discharge Plan - Plan Referrals: Ramone Cee DO [Primary Care Provider] -
--- NOTE | 2018-09-19 08:18 | Internal Med Progress Note ---
<ArlethstevodestineeKevin hoang - Last Filed: 09/19/18 13:18> Hospitalist Progress Note - Encounter Date of Encounter: 09/19/18 Time of Encounter: 10:00 - Subjective Interval History: When seen today patient says that her speech has been the same since her stroke. She says she has good strength in her upper and lower extremities. She denies any fever, shortness of breath, chest pain, nausea, or vomiting. She denies any abdominal pain. Denies any focal weakness. Admits to a mild headache which she says is chronic in nature. - Exam Vitals: Temp Pulse Resp BP Pulse Ox 98.1 F 61 18 173/90 97 09/19/18 07:35 09/19/18 07:35 09/19/18 07:35 09/19/18 07:35 09/19/18 07:35 Exam: GENERAL APPEARANCE: Well developed, well nourished, alert and cooperative, and appears to be in no acute distress. Obese. HEAD: normocephalic. EYES: PERRL, EOMI. Fundi normal, UNABLE TO SEE FROM R SIDE. EARS: External auditory canals and tympanic membranes clear, hearing grossly intact. NOSE: No nasal discharge. THROAT: Oral cavity and pharynx normal. No inflammation, swelling, exudate, or lesions. NECK: Neck supple, non-tender without lymphadenopathy, masses or thyromegaly. CARDIAC: Normal S1 and S2. No S3, S4 or murmurs. Rhythm is regular. There is no peripheral edema, cyanosis or pallor. Extremities are warm and well perfused. Capillary refill is less than 2 seconds. No carotid bruits. LUNGS: Clear to auscultation and percussion without rales, rhonchi, wheezing or diminished breath sounds. ABDOMEN: Positive bowel sounds. Soft, nondistended, nontender. No guarding or rebound. No masses. MUSKULOSKELETAL: No joint erythema or tenderness. Normal muscular development. EXTREMITIES: No significant deformity or joint abnormality. No edema. Peripheral pulses intact. No varicosities. LOWER EXTREMITY: Examination of both feet reveals all toes to be normal in size and symmetry, normal range of motion, normal sensation with distal capillary filling of less than 2 seconds without tenderness, swelling, discoloration, nodules, weakness or deformity; examination of both ankles, knees, legs, and hips reveals normal range of motion, normal sensation without tenderness, swelling, discoloration, crepitus, weakness or deformity. NEUROLOGICAL: CN II-XII intact except for decreased vision from R field. Strength and sensation symmetric and intact throughout. Reflexes 2+ throughout. Patient has slow speech with occasional stuttering. SKIN: Skin normal color, texture and turgor with no lesions or eruptions. PSYCHIATRIC: The mental examination revealed the patient was oriented to person, place, and time. - Assessment and Plan (1) CVA (cerebral vascular accident) Current Visit: Yes Status: Acute Assessment and Plan: - Presented with bifrontal headache and dysarthria starting 3-4 days prior to presentation - Patient had a prior CVA several months ago - CT scan of the head: Subacute infarct and left occipital lobe, mild progr ession of left MCA distribution infarct, subacute to chronic - Patient given aspirin 325 mg and emergency department - Normally takes an aspirin and statin at home - Neurology was consulted from the emergency transit department clerk and neck MRA 09/16 demonstrated the following: - L MCA occluded at origin. - Occluded L OPERATIONS DIRECTOR ( origin), new since prior study. - Occluded L MCA, previously seen as severely reduced caliber on prior CTA - Signal dropout short-segment proximal intracranial R ICA concerning for focal occlusion or high-grade stenosis with reconstitution from - Acute infarct lateral portion of left occipital lobe, sparing mesial occipital lobe, and involving mesial portion left temporal lobe (possibly cortical border and internal zone territory); Chronic L MCA territory infarct TTE: Normal EF, mild diastolic dysfunction Plan: - Medical management per the recommendations of neurology: ASA, Statin, Plavix - Permissive HTN; Restarted home dose of lisinopril; titrate lisinopril as nec essary. PRN labetalol for SBP > 220 - Speech therapy consulted - Stroke precautions. (2) HTN (hypertension) Current Visit: No Status: Chronic Assessment and Plan: - Patient has a known history of hypertension - Presented with a blood pressure of 168/90 Plan: - Restarted home dose of lisinopril. Titrate as necessary. - PRN labetalol for SBP > 220 (3) HLD (hyperlipidemia) Current Visit: No Status: Chronic Assessment and Plan: - Continue statin. (4) Diabetes Current Visit: Yes Status: Acute Assessment and Plan: - Sliding scale insulin. (5) Dysarthria Current Visit: No Status: Acute (6) Tick bite Current Visit: Yes Status: Acute Assessment and Plan: - tick sent to our lab - doxy dose given (7) DVT prophylaxis Current Visit: No Status: Acute Assessment and Plan: - On SCD's. - On ambulate orders. - Time Spent with Patient Total time spent is greater than 50% in coordination of care (as documented) at patient's floor/unit and/or counseling patient: Internal Medicine: Result - Labs CBC & Chem 7: 09/17/18 04:22 09/17/18 04:22 - ABG Interpretation ABG results: PT/INR, D-dimer PT 11.6 Seconds (9.4-12.1) 09/17/18 04:22 Consult Discharge Plan - Plan Referrals: Ramone Cee DO [Primary Care Provider] - <Callie Martinez - Last Filed: 09/19/18 16:41> Hospitalist Progress Note - Encounter Date of Encounter: 09/19/18 - Exam Vitals: Temp Pulse Resp BP Pulse Ox 97.5 F L 65 18 140/94 98 09/19/18 15:09 09/19/18 15:09 09/19/18 15:09 09/19/18 15:09 09/19/18 15:09 - Time Spent with Patient Total time spent is greater than 50% in coordination of care (as documented) at patient's floor/unit and/or counseling patient: Internal Medicine: Result - Labs CBC & Chem 7: 09/17/18 04:22 09/17/18 04:22 - ABG Interpretation ABG results: PT/INR, D-dimer PT 11.6 Seconds (9.4-12.1) 09/17/18 04:22 - Attending Attestation I examined this patient and my medical decision-making was reviewed with the Resident Physician Dr Buenrostro. I agree with the documented findings, disposition and treatment plan as described except to the extent set forth below. Mrs Cuadra is admitted with acute CVA. She has been medically stable and neurology has signed off. She will dc to home with instruction to fu with Dr Wilson, rx for meds she had not been taking and INSTRUCTION SHE IS NOT PERMITTED TO DRIVE WAS DISCUSSED WITH HER awake, alert, no changes in speech, charlton is mild, no further vision changes. happy to be able to go home today. 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 stenosis with collaterals L OPERATIONS DIRECTOR occlusion new MRI/A head/neck as above echo normal EF, mild DD, normal valves, interatrial septum not well visualized outside window for tpa, last known well 3-4 days door captain -Dr Wilson followed- fu outpt -asa, statin and plavix (suspect has not been taking since April per her outpt pharmacy refills but not filled since april)- rxs given on dc -permissive HTN now done- BP to goal with home acei, 140/90, adjust further in outpt setting pt/ot- cleared for home outpt speech therapy NO DRIVING HTN-cont lisinopril, fu with pcp outpt Tick Bite- tick sent to our lab, no result, doxy dose given htis admission further diagnoses and plan as noted by resident <Kevin Buenrostro - Last Filed: 09/19/18 13:18> (1) CVA (cerebral vascular accident) Qualifiers: CVA mechanism: unspecified Qualified Code(s): I63.9 - Cerebral infarction, unspecified (2) HTN (hypertension) Qualifiers: Hypertension type: essential hypertension Qualified Code(s): I10 - Essential (primary) hypertension (3) HLD (hyperlipidemia) Qualifiers: Hyperlipidemia type: unspecified Qualified Code(s): E78.5 - Hyperlipidemia, unspecified (4) Diabetes Qualifiers: Qualified Code(s): E11.9 - Type 2 diabetes mellitus without complications (6) Tick bite Qualifiers: Qualified Code(s): W57.XXXA - Bitten or stung by nonvenomous insect and other nonvenomous arthropods, initial encounter
[2018-09-19] MEDS: Aspirin 81 MG TAB.CHEW PO SCH (09:44)
[2018-09-19] MEDS: Insulin LISPRO 300 UNITS/3 ML VIAL SQ SCH ×2 (09:46→12:42)
--- NOTE | 2018-09-19 11:07 | Neurology Progress Note ---
Date of Encounter: 09/19/18 Time of Encounter: 11:07 Assessment and Plan (1) CVA (cerebral vascular accident) Current Visit: Yes Status: Acute Patient with multiple risk factors for CVA, with recent CVA ( during March/2018) likely secondary to left ICA occlusion, on aspirin and plavix dual antiplate therapy who developed another ischemic infarct, this time also involving left side of brain but to the occipital lobe, corresponding to new finding of left FLY WINDER occlusion. It is worth noting the the left FLY WINDER was reported to be of origin from left internal carotid artery therefore it is likely that the current stroke is still the consequences of total left ICA occlusion that can be aggravated by reduced cerebral perfusion of any sort. Theoretically this could also be thromboembolic events from the tail of thrombus at the occluded left ICA. SO far it appears that the patient is of very high risk of cerebral mortality and morbidity due to recurrent stroke with multiple risk factors. However, This does not appear to be caused by embolic event. Please note that the patient has had trans-esophageal echocardiography performed during March/2018 and no cardiac source of emboli was identified. Therefore currently although it would be debatable whether the patient would benefit from anticoagulation therapy simply due to history of recurrent ischemic infarct while on dual antiplatelet therapy, but currently there is no strong indication for anticoagulation therapy. Please also note that the MRI of brain and neck reported short segment drop off of signal at the level of ophthalmic artery of the right ICA suggesting critical high-grade stenosis with reconstitution from [id number] collaterals distally, but this has been present during previous CTA of neck and head during 03/2018 admission. Continue Aspirin, plavix, and statin. continue risk reduction. Neurological prognosis is worrisome in this particular case. Occlusion of ICA and occlusion of FLY WINDER all demand medical treatment only. Patient likely to experiencing right visual field loss. Driving should be avoided. Qualifiers: CVA mechanism: unspecified Qualified Code(s): I63.9 - Cerebral infarction, unspecified Subjective Principal diagnosis: CVA Interval history: Patient seen and examined. Patient still reports frontal headache but no nausea and vitals are stable. Still has rather significant visual deficits to right visual field. No focal weakness. Overall speaking symptoms are stable and speech appear to be near her baseline. Objective - Constitutional Vitals: Temp Pulse Resp BP Pulse Ox 98.1 F 61 18 173/90 97 09/19/18 07:35 09/19/18 07:35 09/19/18 07:35 09/19/18 07:35 09/19/18 07:35 - Neurological Exam Sensorimotor examination: Present: intact (Grossly intact) Motor Examination: Present: grossly full strength in all extremities Motor examination - right side: 4/5: deltoids, biceps, triceps, wrist flexion, w rist extension, manager staffing, hip flexors, tibialis Anterior, quadriceps, toe extension (EHL), plantarflexion Motor examination - left side: 5/5: deltoids, biceps, triceps, wrist flexion, wrist extension, hip flexors, manager staffing, quadriceps, tibialis Anterior, toe extension (EHL), plantarflexion Sensation intact: Present: intact (Grossly intact, except slighly reduced hemiparesthesia to the right side) Posture: Present: other (None) Reflex and gait examination: other (Gait is not assessed) Mental Status Examination: Present: awake, alert, oriented to person, oriented to place, oriented to time, follows commands appropriately, answers questions appropriately (Patient is dysarthric but able to repeat. There is a component of dyaphasia), opens eyes to voice, makes eye contact, follows simple commands Cranial nerve examination: Present: PERRL, EOMI, visual oviedo intact (Shows right bilateral hemianopsia), corneal reflexes brisk symmetrically, sensory to face intact, mastication intact, no facial asymmetry is present, no dysarthria, hearing is intact symmetrically, soft palate elevates bilaterally upon phonation, gag reflex intact, flexes SCM and trapezius muscles symmetrically with full power, tongue protrudes midline, no atrophy or facial fasiculations present Cerebellar examination: Present: no dysmetria (reduced dexterity to the right arm) Results - Laboratory Findings CBC and BMP: 09/17/18 04:22 09/17/18 04:22 Abnormal lab findings: Abnormal lab results RBC 5.09 M/mcL (3.82-4.97) H 09/16/18 15:50 Sodium 135 mEq/L (136-145) L 09/17/18 04:22 Glucose 126 mg/dL (70-105) H 09/17/18 04:22 Glucose 126 mg/dL (70-105) H 09/17/18 04:22 POC Glucose 176 mg/dL (70-99) H 09/18/18 19:26 5.9 % (-5.6) H 09/17/18 04:22 Triglycerides 268 mg/dL (< 150) H 09/17/18 04:22 Triglycerides 269 mg/dL (< 150) H 09/17/18 04:22 LDL Cholesterol, Calc 100 mg/dL (0-99) H 09/17/18 04:22 VLDL Cholesterol, Calc 54 mg/dL (< 31) H 09/17/18 04:22 VLDL Cholesterol, Calc 54 mg/dL (< 31) H 09/17/18 04:22 24 mg/dL (40-59) L 09/17/18 04:22 24 mg/dL (40-59) L 09/17/18 04:22 7.3 (0-4.9) H 09/17/18 04:22 7.4 (0-4.9) H 09/17/18 04:22 Consult Discharge Plan - Plan Referrals: Ramone Cee DO [Primary Care Provider] -
[2018-09-19] MEDS: Acetaminophen 325 MG TABLET PO PRN (15:04)
[2018-09-19 15:12] VITALS: BP 140/94
--- NOTE | 2018-09-19 16:33 | Discharge Summary ---
<Callie Martinez - Last Filed: 09/19/18 16:45> - NOTES TO OUTPATIENT PROVIDER Notes to Outpatient Provider: Suffered another acute CVA- left occipital. NO DRIVING. Follow up wtih Dr Wilson of Neurology. She had not been taking asa, statin, plavix or acei. Further Bp med adjustment outpt. Outpt speech therapy Orders not resulted at time of discharge: Pending orders 09/17/18 00:01 Miscellaneous Lab Test Routine 09/17/18 04:00 Urinalysis reflex Microscopic [URIN] AM 0400 Date of Encounter: 09/19/18 Hospital course: Ms. Cuadra is a 62 year old female - Time Spent with Patient Total time spent providing and/or coordinating discharge services: Time spent: Greater than 30 minutes (40 min) - Discharge Medications Prescriptions: New Aspirin [[place] Aspirin EC] 81 mg PO DAILY 30 Days #30 tablet.dr Pinto metFORMIN [Glucophage] 500 mg PO BIDWM 30 Days #60 tablet Atorvastatin [Lipitor] 40 mg PO DAILY #30 tablet Clopidogrel [Plavix] 75 mg PO DAILY 30 Days #30 tablet Lisinopril [Zestril] 5 mg PO DAILY 30 Days #30 tablet Discontinued Aspirin 81 mg PO DAILY Home Medications: Aspirin [[place] Aspirin EC] 81 mg PO DAILY 30 Days #30 tablet. 09/19/18 [Rx] Atorvastatin [Lipitor] 40 mg PO DAILY #30 tablet 09/19/18 [Rx] Clopidogrel [Plavix] 75 mg PO DAILY 30 Days #30 tablet 09/19/18 [Rx] Lisinopril [Zestril] 5 mg PO DAILY 30 Days #30 tablet 09/19/18 [Rx] metFORMIN [Glucophage] 500 mg PO BIDWM 30 Days #60 tablet 09/19/18 [Rx] Allergies/Adverse Reactions: Allergy/AdvReac Type Severity Reaction Status Date / Time nabumetone [From Relafen] AdvReac Dizziness Verified 09/16/18 14:50 Date of admission: 09/16/18 18:21 Primary care physician: Ramone Cee Consults: 09/16/18 16:45 Consult to Neurology [CONS] Stat Consulting Provider: Neurology [facility] Reason for Consult: Stroke Call Completed: Yes 09/16/18 17:27 Consult to Prop Making Supervisor [CONS] Routine Reason for SW Consult: cva and dipso planning 09/18/18 19:24 Consult to Prop Making Supervisor [CONS] Routine Reason for SW Consult: Patient informed she will not be able to return to work, she is extremely concerned about how she will live. - Constitutional Vitals: Temp Pulse Resp BP Pulse Ox 97.5 F L 65 18 140/94 98 09/19/18 15:09 09/19/18 15:09 09/19/18 15:09 09/19/18 15:09 09/19/18 15:09 - Patient Status Disposition: Home, Self-Care Condition: Fair Functional capacity at discharge: independent ambulation Overall status at discharge: patient is progressing back to baseline - Discharge Instructions Follow Up With: Ramone Cee DO [Primary Care Provider] - Maira Wilson MD [Partnered Physician] - Additional Instructions: Given your visual impairment in her right field you are instructed to not drive until further notified by your neurologist or PCP. - Diet and Activity Activity: increase activity as tolerated, other (NO DRIVING) Diet: advance to your usual diet, low fat, low cholesterol, low salt diet - Attending Attestation I examined this patient and my medical decision-making was reviewed with the Resident Physician Dr Buenrostro. I agree with the documented findings, disposition and treatment plan as described except to the extent set forth below. Mrs Cuadra is admitted with acute CVA. She has been medically stable and neurology has signed off. She will dc to home with instruction to fu with Dr Wilson, rx for meds she had not been taking and INSTRUCTION SHE IS NOT PERMITTED TO DRIVE WAS DISCUSSED WITH HER awake, alert, no changes in speech, charlton is mild, no further vision changes. happy to be able to go home today. 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 new MRI/A head/neck as above echo normal EF, mild DD, normal valves, interatrial septum not well visualized outside window for tpa, 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 -Dr Wilson followed- fu outpt -asa, statin and plavix (suspect has not been taking since April per her outpt pharmacy refills but not filled since april)- rxs given on dc -permissive HTN now done- BP to goal with home acei, 140/90, adjust further in outpt setting pt/ot- cleared for home outpt speech therapy NO DRIVING HTN-cont lisinopril, fu with pcp outpt Tick Bite- tick sent to our lab, no result, doxy dose given htis admission further diagnoses and plan as noted by resident time spent on dc40 min <Kevin Buenrostro - Last Filed: 09/19/18 17:05> Orders not resulted at time of discharge: Pending orders 09/17/18 00:01 Miscellaneous Lab Test Routine 09/17/18 04:00 Urinalysis reflex Microscopic [URIN] AM 0400 Date of Encounter: 09/19/18 Time of Encounter: 09:10 - Discharge Diagnosis (1) CVA (cerebral vascular accident) Priority: Primary Status: Acute Qualifiers: CVA mechanism: unspecified Qualified Code(s): I63.9 - Cerebral infarction, unspecified (2) HTN (hypertension) Priority: Primary Status: Chronic Qualifiers: Hypertension type: essential hypertension Qualified Code(s): I10 - Essenti al (primary) hypertension (3) HLD (hyperlipidemia) Priority: Primary Status: Chronic Qualifiers: Hyperlipidemia type: unspecified Qualified Code(s): E78.5 - Hyperlipidemia, unspecified (4) Diabetes Priority: Primary Status: Acute Qualifiers: Qualified Code(s): E11.9 - Type 2 diabetes mellitus without complications (5) Dysarthria Priority: Secondary Status: Acute (6) Tick bite Priority: Primary Status: Acute Qualifiers: Qualified Code(s): W57.XXXA - Bitten or stung by nonvenomous insect and other nonvenomous arthropods, initial encounter (7) DVT prophylaxis Priority: Primary Status: Acute Hospital course: Patient is a 62-year-old female with a past medical history of CVA (03/2018) with residual effects, hyperlipidemia, hypertension, type 2 diabetes mellitus, and COPD that presented for headaches and dysarthria for the past 3-4 days. She also reported visual deficits in the right upper quadrant bilaterally. Patient has reported that she has been non-compliant with her home medications. CT scan of the head showed subacute infarct in the left occipital lobe with mild progression of left MCA distribution. 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 Neurology was consulted. MRI of brain and neck reported short segment drop off of signal at the level of ophthalmic artery of the right ICA suggesting critical high-grade stenosis with reconstitution from [id number] collaterals distally, but this had been present during previous CTA of neck and head during 03/2018 admission. As a result, there would be not much additional therapies to add from neurology per spective, other than keeping her on Aspirin 81mg daily and plavix and continuing statin therapy, which was what was done. Patient's home blood pressure medication lisinopril was started today. Blood pressure upon discharge was a systolic BP of 140. PT/OT has cleared patient. patient has been treated by speech therapy in the past as an OP, but failed to schedule and return to appointments. Patient encouraged to make appointments with OP speech therapy following discharge. Given patients visual impairment in her right field she was instructed to not drive. Patient to follow-up with PCP in one week. Patient to follow-up with neurology in outpatient. - Time Spent with Patient Total time spent providing and/or coordinating discharge services: Time spent: Greater than 30 minutes Date of admission: 09/16/18 18:21 Primary care physician: Ramone Cee Consults: 09/16/18 16:45 Consult to Neurology [CONS] Stat Consulting Provider: Neurology [facility] Reason for Consult: Stroke Call Completed: Yes 09/16/18 17:27 Consult to Prop Making Supervisor [CONS] Routine Reason for SW Consult: cva and dipso planning 09/18/18 19:24 Consult to Prop Making Supervisor [CONS] Routine Reason for SW Consult: Patient informed she will not be able to return to work, she is extremely concerned about how she will live. Discharging clinician: Kevin Buenrostro Anticipated date of discharge: 09/19/18 - Constitutional Vitals: Temp Pulse Resp BP Pulse Ox 97.5 F L 65 18 140/94 98 09/19/18 15:09 09/19/18 15:09 09/19/18 15:09 09/19/18 15:09 09/19/18 15:09 Exam: GENERAL APPEARANCE: Well developed, well nourished, alert and cooperative, and appears to be in no acute distress. Obese. HEAD: normocephalic. EYES: PERRL, EOMI. Fundi normal, UNABLE TO SEE FROM R SIDE. EARS: External auditory canals and tympanic membranes clear, hearing grossly intact. NOSE: No nasal discharge. THROAT: Oral cavity and pharynx normal. No inflammation, swelling, exudate, or lesions. NECK: Neck supple, non-tender without lymphadenopathy, masses or thyromegaly. CARDIAC: Normal S1 and S2. No S3, S4 or murmurs. Rhythm is regular. There is no peripheral edema, cyanosis or pallor. Extremities are warm and well perfused. Capillary refill is less than 2 seconds. No carotid bruits. LUNGS: Clear to auscultation and percussion without rales, rhonchi, wheezing or diminished breath sounds. ABDOMEN: Positive bowel sounds. Soft, nondistended, nontender. No guarding or rebound. No masses. MUSKULOSKELETAL: No joint erythema or tenderness. Normal muscular development. EXTREMITIES: No significant deformity or joint abnormality. No edema. Peripheral pulses intact. No varicosities. LOWER EXTREMITY: Examination of both feet reveals all toes to be normal in size and symmetry, normal range of motion, normal sensation with distal capillary filling of less than 2 seconds without tenderness, swelling, discoloration, nodules, weakness or deformity; examination of both ankles, knees, legs, and hips reveals normal range of motion, normal sensation without tenderness, swelling, discoloration, crepitus, weakness or deformity. NEUROLOGICAL: CN II-XII intact except for decreased vision from R field. Strength and sensation symmetric and intact throughout. Reflexes 2+ throughout. Patient has slow speech with occasional stuttering. SKIN: Skin normal color, texture and turgor with no lesions or eruptions. PSYCHIATRIC: The mental examination revealed the patient was oriented to person, place, and time. - Patient Status Functional capacity at discharge: independent ambulation Overall status at discharge: patient is progressing back to baseline - Diet and Activity Activity: increase activity as tolerated, other Diet: advance to your usual diet, low fat, low cholesterol, low salt diet
== END 2018-09-19 19:45 | disposition home or self-care (01) | DRG 66 ==
LOC: EMEROOARM 14:44 → 2NENU 18:21 → SUATTDRO 18:21 → 2NENU 20:22
PROVIDERS: ADMIT Internal Medicine Nephrology; ATTEND Internal Medicine